=== PATIENT | male | born 1980 | race Caucasian/White ===

== ENCOUNTER 2020-08-19 07:53 | Outpatient (REF) | payer OTHER, SELFPAY ==
[2020-08-19 12:14] LABS: Cholesterol 226 mg/dL; HDL Cholesterol 31 mg/dL; Triglycerides 432 mg/dL
== END 2020-08-19 07:54 | disposition home or self-care (01) ==
LOC: HO.WFDLDS 07:53
PROVIDERS: Visit Provider Family Medicine
DX: E78.00 Pure hypercholesterolemia, unspecified (principal)
CPT/HCPCS: 80061

== ENCOUNTER → 2020-08-24 09:08 | Outpatient (BNVA) | payer OTHER, SELFPAY | PROVIDERS: Visit Provider Internal Medicine | DX: M79.7 Fibromyalgia (principal); Z79.891 Long term (current) use of opiate analgesic | CPT/HCPCS: 80305 ==

== ENCOUNTER 2020-08-27 09:30 | Outpatient (REF) | payer OTHER, SELFPAY ==
[2020-08-27 11:18] LABS: Cholesterol 214 mg/dL; HDL Cholesterol 27 mg/dL; LDL Cholesterol Calculated 114 mg/dl; Triglycerides 366 mg/dL
[2020-08-27 11:18] LABS: Creatinine Urine 186.03 mg/dL; Microalbum/Creatinine Ratio Ur 11.2 ug/mg cr
[2020-08-27 11:39] LABS: PSA,Total (Free>4and<10) 0.19 ng/mL (0.00-4.00)
[2020-08-28 10:27] LABS: LDL Cholesterol Direct 144 mg/dL (<100)
== END 2020-08-27 09:31 | disposition home or self-care (01) ==
LOC: HO.WFDLDS 09:30
PROVIDERS: Visit Provider Family Medicine
DX: E78.2 Mixed hyperlipidemia (principal); I10 Essential (primary) hypertension; Z12.5 Encounter for screening for malignant neoplasm of prostate; Z00.00 Encounter for general adult medical examination without abnormal findings
CPT/HCPCS: 80061; 82043; 83721; 84153

== ENCOUNTER 2021-01-19 09:15 | Outpatient (REF) | payer OTHER, SELFPAY ==
[2021-01-19 17:56] LABS: Cholesterol 281 mg/dL; HDL Cholesterol 29 mg/dL; Triglycerides 432 mg/dL
[2021-01-20 01:52] LABS: LDL Cholesterol Direct 184 mg/dL (<100)
== END 2021-01-19 09:16 | disposition home or self-care (01) ==
LOC: HO.WFDLDS 09:15
PROVIDERS: Visit Provider Family Medicine
DX: Z00.00 Encounter for general adult medical examination without abnormal findings (principal); E78.2 Mixed hyperlipidemia
CPT/HCPCS: 36415; 80061; 83721

== ENCOUNTER → 2021-02-14 14:39 | Outpatient (BNVA) | payer OTHER, SELFPAY | PROVIDERS: PCP Family Medicine; Visit Provider Internal Medicine | DX: F11.99 Opioid use, unspecified with unspecified opioid-induced disorder (principal); M79.7 Fibromyalgia | CPT/HCPCS: 80305 ==

== ENCOUNTER → 2021-02-28 10:17 | Outpatient (BNVA) | payer OTHER, SELFPAY | PROVIDERS: Visit Provider Internal Medicine | DX: Z51.81 Encounter for therapeutic drug level monitoring (principal) | CPT/HCPCS: 80305 ==

== ENCOUNTER → 2021-03-07 09:28 | Outpatient (BNVA) | payer OTHER, SELFPAY | PROVIDERS: PCP Family Medicine; Visit Provider Internal Medicine | DX: F11.99 Opioid use, unspecified with unspecified opioid-induced disorder (principal) | CPT/HCPCS: 80305 ==

== ENCOUNTER → 2021-03-21 08:48 | Outpatient (BNVA) | payer OTHER, SELFPAY | PROVIDERS: Visit Provider Internal Medicine | DX: Z51.81 Encounter for therapeutic drug level monitoring (principal) | CPT/HCPCS: 80305 ==

== ENCOUNTER → 2021-04-04 08:28 | Outpatient (BNVA) | payer OTHER, SELFPAY | PROVIDERS: Visit Provider Internal Medicine | DX: Z51.81 Encounter for therapeutic drug level monitoring (principal); F11.90 Opioid use, unspecified, uncomplicated | CPT/HCPCS: 80305 ==

== ENCOUNTER 2021-04-25 08:47 | Outpatient (REF) | payer OTHER, MEDICAID, SELFPAY ==
[2021-04-25 10:25] LABS: Cholesterol 235 mg/dL; HDL Cholesterol 29 mg/dL; Triglycerides 575 mg/dL
== END 2021-04-25 08:48 | disposition home or self-care (01) ==
LOC: HO.LAB 08:47
PROVIDERS: Absent Provider Hospitalist; PCP Family Medicine; Visit Provider Internal Medicine
DX: E78.2 Mixed hyperlipidemia (principal); F11.99 Opioid use, unspecified with unspecified opioid-induced disorder
CPT/HCPCS: 36415; 80061; 80305

== ENCOUNTER → 2021-05-16 08:48 | Outpatient (BNVA) | payer OTHER, SELFPAY | PROVIDERS: PCP Family Medicine; Visit Provider Internal Medicine | DX: Z51.81 Encounter for therapeutic drug level monitoring (principal); F11.90 Opioid use, unspecified, uncomplicated | CPT/HCPCS: 80305 ==

== ENCOUNTER → 2021-06-06 15:40 | Outpatient (BNVA) | payer OTHER, SELFPAY | PROVIDERS: PCP Family Medicine; Visit Provider Internal Medicine ==

== ENCOUNTER → 2021-07-04 10:45 | Outpatient (BNVA) | payer OTHER, SELFPAY | PROVIDERS: Visit Provider Internal Medicine ==

== ENCOUNTER 2021-07-06 07:58 | Outpatient (REF) | payer OTHER, SELFPAY ==
[2021-07-06 11:03] LABS: Cholesterol 190 mg/dL; HDL Cholesterol 32 mg/dL; LDL Cholesterol Calculated 99 mg/dl; Triglycerides 298 mg/dL
[2021-07-08 03:17] LABS: LDL Cholesterol Direct 130 mg/dL (<100)
== END 2021-07-06 07:59 | disposition home or self-care (01) ==
LOC: HO.WFDLDS 07:58
PROVIDERS: Visit Provider Family Medicine
DX: Z00.00 Encounter for general adult medical examination without abnormal findings (principal); E78.2 Mixed hyperlipidemia
CPT/HCPCS: 36415; 80061; 83721

== ENCOUNTER 2021-07-20 09:58 | Outpatient (REF) | payer OTHER, SELFPAY ==
[2021-07-20 18:28] LABS: Fentanyl, urine Not Detected (Not Detect)
== END 2021-07-20 09:59 | disposition home or self-care (01) ==
LOC: HO.LNP 09:58
PROVIDERS: Visit Provider Internal Medicine
DX: F11.20 Opioid dependence, uncomplicated (principal); Z79.899 Other long term (current) drug therapy
CPT/HCPCS: 80305; 80307

== ENCOUNTER → 2021-08-15 17:03 | Outpatient (BNVA) | payer OTHER, SELFPAY | PROVIDERS: PCP Family Medicine; Visit Provider Internal Medicine | DX: F11.99 Opioid use, unspecified with unspecified opioid-induced disorder (principal); I10 Essential (primary) hypertension; U07.0 Vaping-related disorder; Z87.891 Personal history of nicotine dependence | CPT/HCPCS: 80305 ==

== ENCOUNTER → 2021-09-19 14:05 | Outpatient (BNVA) | payer OTHER, SELFPAY | PROVIDERS: Visit Provider Internal Medicine | DX: F11.20 Opioid dependence, uncomplicated (principal); Z51.81 Encounter for therapeutic drug level monitoring; Z79.899 Other long term (current) drug therapy | CPT/HCPCS: 80305 ==

== ENCOUNTER 2021-09-28 09:10 | Outpatient (REF) | payer OTHER, SELFPAY ==
[2021-09-28 12:15] LABS: Alanine Aminotransferase 33 U/L (0-40); Albumin Level 4.5 g/dL (3.5-5.0); Alkaline Phosphatase 39 U/L (39-117); Anion Gap 12 (12-20); Aspartate Amino Transferase 22 U/L (5-37); Bilirubin Total 0.4 mg/dL (0.0-1.0); Blood Urea Nitrogen 14 mg/dL (9-16); Calcium 9.4 mg/dL (8.4-10.2); Carbon Dioxide 28 mmol/L (22-29); Chloride 106 mmol/L (96-108); Cholesterol 225 mg/dL; Estimated Glomerular Filt Rate > 60; Glucose Fasting 115 mg/dL (60-99); HDL Cholesterol 30 mg/dL; Potassium 4.3 mmol/L (3.3-5.1); Sodium 142 mmol/L (135-145); Total Protein 7.3 g/dL (6.5-8.0); Triglycerides 468 mg/dL
[2021-09-28 12:40] LABS: TSH reflex Free T4 2.83 uIU/mL (0.32-4.0)
[2021-09-28 12:57] LABS: Prostate Specific Antigen Scr 0.24 ng/mL (<0.05-4.0)
== END 2021-09-28 09:11 | disposition home or self-care (01) ==
LOC: HO.WFDLDS 09:10
PROVIDERS: Visit Provider Family Medicine
DX: Z00.00 Encounter for general adult medical examination without abnormal findings (principal); Z12.5 Encounter for screening for malignant neoplasm of prostate
CPT/HCPCS: 36415; 80053; 80061; 84153; 84443

== ENCOUNTER 2021-09-29 08:47 | Outpatient (REF) | payer OTHER, SELFPAY ==
[2021-09-29 09:46] LABS: COVID-19 Test Negative (Negative); IDNOW Serial# 16C4AD1C
== END 2021-09-29 08:48 | disposition home or self-care (01) ==
LOC: HO.LAB 08:47
PROVIDERS: PCP Family Medicine; Visit Provider Internal Medicine
DX: Z20.822 Contact with and (suspected) exposure to COVID-19 (principal)
CPT/HCPCS: 36415; 87635; C9803

== ENCOUNTER 2021-09-30 11:44 | Outpatient (REF) | payer OTHER, SELFPAY ==
--- NOTE | ~2021-09-30 | XR_ITS ---
EXAMINATION: XR KNEE, LEFT CLINICAL INFORMATION: Pain in the left knee COMPARISON: None AP and lateral views of the left knee FINDINGS: Bones and soft tissues are normal. No fracture or joint effusion. Alignment is anatomic. Joint spaces are well maintained. No abnormal soft tissue calcification. XR/XR knee LT 2V IMPRESSION: Normal left knee.
== END 2021-09-30 11:45 | disposition home or self-care (01) ==
LOC: HO.HMGCX 11:44
PROVIDERS: PCP Family Medicine; Visit Provider Family Medicine
DX: M25.562 Pain in left knee (principal)
CPT/HCPCS: 73560

== ENCOUNTER → 2021-10-25 15:37 | Outpatient (BNVA) | payer OTHER, SELFPAY | PROVIDERS: PCP Family Medicine; Visit Provider Internal Medicine ==

== ENCOUNTER 2021-11-17 10:06 | Outpatient (REF) | payer OTHER, SELFPAY ==
[2021-11-17 13:53] LABS: Alanine Aminotransferase 67 U/L (0-40); Albumin Level 4.7 g/dL (3.5-5.0); Alkaline Phosphatase 42 U/L (39-117); Anion Gap 12 (12-20); Aspartate Amino Transferase 40 U/L (5-37); Bilirubin Total 0.4 mg/dL (0.0-1.0); Blood Urea Nitrogen 15 mg/dL (9-16); Calcium 9.6 mg/dL (8.4-10.2); Carbon Dioxide 29 mmol/L (22-29); Chloride 105 mmol/L (96-108); Cholesterol 219 mg/dL; Estimated Glomerular Filt Rate > 60; Glucose Fasting 114 mg/dL (60-99); HDL Cholesterol 33 mg/dL; LDL Cholesterol Calculated 133 mg/dl; Potassium 4.2 mmol/L (3.3-5.1); Sodium 142 mmol/L (135-145); Total Protein 7.5 g/dL (6.5-8.0); Triglycerides 265 mg/dL
[2021-11-17 14:04] LABS: Estimated Average Glucose 126 mg/dL
[2021-11-17 14:13] LABS: TSH reflex Free T4 3.28 uIU/mL (0.32-4.0)
== END 2021-11-17 10:07 | disposition home or self-care (01) ==
LOC: HO.WFDLDS 10:06
PROVIDERS: Visit Provider Family Medicine
DX: Z00.00 Encounter for general adult medical examination without abnormal findings (principal); R73.01 Impaired fasting glucose
CPT/HCPCS: 36415; 80053; 80061; 83036; 84443

== ENCOUNTER → 2021-11-22 15:04 | Outpatient (BNVA) | payer OTHER, SELFPAY | PROVIDERS: PCP Family Medicine; Visit Provider Internal Medicine | DX: F11.20 Opioid dependence, uncomplicated (principal); Z51.81 Encounter for therapeutic drug level monitoring; Z79.899 Other long term (current) drug therapy | CPT/HCPCS: 80305 ==

== ENCOUNTER 2022-01-03 14:17 | Outpatient (REF) | payer OTHER, SELFPAY ==
[2022-01-03 14:46] LABS: Estimated Average Glucose 120 mg/dL; Hemoglobin A1c % 5.8 %
[2022-01-03 15:00] LABS: Alanine Aminotransferase 29 U/L (0-40); Albumin Level 4.9 g/dL (3.5-5.0); Alkaline Phosphatase 42 U/L (39-117); Anion Gap 13 (12-20); Aspartate Amino Transferase 23 U/L (5-37); Bilirubin Total 0.7 mg/dL (0.0-1.0); Blood Urea Nitrogen 11 mg/dL (9-16); Calcium 9.9 mg/dL (8.4-10.2); Carbon Dioxide 27 mmol/L (22-29); Chloride 106 mmol/L (96-108); Cholesterol 184 mg/dL; Estimated Glomerular Filt Rate > 60; Glucose Random 112 mg/dL (60-115); HDL Cholesterol 36 mg/dL; LDL Cholesterol Calculated 117 mg/dl; Potassium 4.4 mmol/L (3.3-5.1); Sodium 142 mmol/L (135-145); Total Protein 7.6 g/dL (6.5-8.0); Triglycerides 159 mg/dL
== END 2022-01-03 14:18 | disposition home or self-care (01) ==
LOC: HO.LAB 14:17
PROVIDERS: PCP Family Medicine; Visit Provider Family Medicine
DX: Z00.00 Encounter for general adult medical examination without abnormal findings (principal); R73.01 Impaired fasting glucose; R74.8 Abnormal levels of other serum enzymes
CPT/HCPCS: 36415; 80053; 80061; 83036

== ENCOUNTER → 2022-01-17 13:53 | Outpatient (BNVA) | payer OTHER, SELFPAY | PROVIDERS: PCP Family Medicine; Visit Provider Internal Medicine | DX: F11.20 Opioid dependence, uncomplicated (principal) | CPT/HCPCS: 80305 ==

== ENCOUNTER → 2022-02-16 09:03 | Outpatient (BNVA) | payer OTHER, SELFPAY | PROVIDERS: PCP Family Medicine; Referring Provider Family Medicine; Visit Provider Internal Medicine | DX: E78.2 Mixed hyperlipidemia (principal) | CPT/HCPCS: 93005 ==

== ENCOUNTER → 2022-03-14 14:16 | Outpatient (BNVA) | payer OTHER, SELFPAY | PROVIDERS: PCP Family Medicine; Visit Provider Internal Medicine | DX: Z51.81 Encounter for therapeutic drug level monitoring (principal); F11.20 Opioid dependence, uncomplicated | CPT/HCPCS: 80305 ==

== ENCOUNTER 2022-10-02 09:49 | Outpatient (REF) | payer OTHER, SELFPAY ==
[2022-10-02 11:32] LABS: MANUAL DIFF FLAG NO
[2022-10-02 11:34] LABS: Basophils Absolute Auto 0.1 X10*3/uL (0.0-0.2); Basophils Percent Auto 0.9 % (0-2); Eosinophils Absolute Auto 0.2 X10*3/uL (0.0-0.4); Eosinophils Percent Auto 3.3 % (0-4); Hematocrit 41.3 % (42.0-52.0); Hemoglobin 13.9 g/dl (14.0-18.0); Imm Gran Abs Auto 0.03 X10*3/uL (0.00-0.03); Imm Gran Pct Auto 0.5 % (0.0-0.4); Lymphocytes Absolute Auto 1.8 X10*3/uL (1.2-4.9); Lymphocytes Percent Auto 27.8 % (20-40); Mean Corpuscular HGB Conc 33.7 g/dl (31.0-36.0); Mean Corpuscular Hemoglobin 29.2 pg (27.0-33.0); Mean Corpuscular Volume 86.8 fL (80.0-98.0); Mean Platelet Volume 9.9 fL (9.4-12.4); Monocytes Absolute Auto 0.5 X10*3/uL (0.1-1.2); Monocytes Percent Auto 7.3 % (2-11); Neutrophils Absolute Auto 3.9 x10*3/uL (2.0-8.3); Neutrophils Percent Auto 60.2 % (45-73); Platelet Count 312 X10*3/uL (160-400); Red Blood Count 4.76 X10*6/uL (4.60-5.80); Red Cell Distribution Width 12.2 % (11.0-16.0); White Blood Count 6.4 X10*3/uL (4.8-10.8)
[2022-10-02 12:25] LABS: Alanine Aminotransferase 26 U/L (0-40); Albumin Level 4.6 g/dL (3.5-5.0); Alkaline Phosphatase 53 U/L (39-117); Anion Gap 13 (12-20); Aspartate Amino Transferase 20 U/L (5-37); Bilirubin Total 0.5 mg/dL (0.0-1.0); Blood Urea Nitrogen 15 mg/dL (9-16); Calcium 9.8 mg/dL (8.4-10.2); Carbon Dioxide 32 mmol/L (22-29); Chloride 103 mmol/L (96-108); Cholesterol 175 mg/dL; Estimated Glomerular Filt Rate > 60; Glucose Random 116 mg/dL (60-115); HDL Cholesterol 32 mg/dL; LDL Cholesterol Calculated 103 mg/dl; Potassium 4.8 mmol/L (3.3-5.1); Prostate Specific Antigen Scr 0.25 ng/mL (<0.05-4.0); Sodium 143 mmol/L (135-145); Total Protein 7.3 g/dL (6.5-8.0); Triglycerides 202 mg/dL
[2022-10-02 12:54] LABS: Microalbum/Creatinine Ratio Ur 15.6 ug/mg cr
== END 2022-10-02 09:50 | disposition home or self-care (01) ==
LOC: HO.WFDLDS 09:49
PROVIDERS: Visit Provider Family Medicine
DX: Z00.00 Encounter for general adult medical examination without abnormal findings (principal); Z12.5 Encounter for screening for malignant neoplasm of prostate; I10 Essential (primary) hypertension; R73.03 Prediabetes; R74.8 Abnormal levels of other serum enzymes
CPT/HCPCS: 36415; 80053; 80061; 82043; 84153; 85025

== ENCOUNTER → 2022-11-07 15:27 | Outpatient (BNVA) | payer OTHER, SELFPAY | PROVIDERS: PCP Family Medicine; Visit Provider Nurse Practitioner Psychiatric/Mental Health | DX: F11.20 Opioid dependence, uncomplicated (principal); Z51.81 Encounter for therapeutic drug level monitoring; Z79.899 Other long term (current) drug therapy | CPT/HCPCS: 80305 ==

== ENCOUNTER 2022-12-20 07:55 | Outpatient (REF) | payer OTHER, SELFPAY ==
[2022-12-20 10:57] LABS: MANUAL DIFF FLAG NO
[2022-12-20 11:12] LABS: Estimated Average Glucose 128 mg/dL; Hemoglobin A1c % 6.1 %
[2022-12-20 11:17] LABS: Basophils Absolute Auto 0.1 X10*3/uL (0.0-0.2); Basophils Percent Auto 0.7 % (0-2); Eosinophils Absolute Auto 0.3 X10*3/uL (0.0-0.4); Eosinophils Percent Auto 2.4 % (0-4); Hematocrit 42.1 % (42.0-52.0); Hemoglobin 14.3 g/dl (14.0-18.0); Imm Gran Abs Auto 0.02 X10*3/uL (0.00-0.03); Imm Gran Pct Auto 0.2 % (0.0-0.4); Lymphocytes Absolute Auto 1.3 X10*3/uL (1.2-4.9); Lymphocytes Percent Auto 12.7 % (20-40); Mean Corpuscular Hemoglobin 29.3 pg (27.0-33.0); Mean Corpuscular Volume 86.3 fL (80.0-98.0); Mean Platelet Volume 10.8 fL (9.4-12.4); Monocytes Absolute Auto 0.7 X10*3/uL (0.1-1.2); Monocytes Percent Auto 6.4 % (2-11); Neutrophils Percent Auto 77.6 % (45-73); Platelet Count 304 X10*3/uL (160-400); Red Blood Count 4.88 X10*6/uL (4.60-5.80); Red Cell Distribution Width 12.1 % (11.0-16.0); White Blood Count 10.3 X10*3/uL (4.8-10.8)
[2022-12-20 11:29] LABS: Cholesterol 177 mg/dL; HDL Cholesterol 33 mg/dL; LDL Cholesterol Calculated 94 mg/dl; Triglycerides 254 mg/dL
[2022-12-20 11:45] LABS: Appearance Urine Clear; Color Urine Yellow; Glucose Urine UA Negative (Negative); Leukocyte Esterase Urine Negative (Negative); Nitrite Urine Negative (Negative); Specific Gravity - Urine 1.025 (1.005-1.025); Urine Blood Negative (Negative); Urine Ketones Negative (Negative); Urine Protein Negative (Neg-Trace)
[2022-12-22 05:04] LABS: LDL Cholesterol Direct 102 mg/dL (<100)
== END 2022-12-20 07:56 | disposition home or self-care (01) ==
LOC: HO.WFDLDS 07:55
PROVIDERS: Visit Provider Family Medicine
DX: Z00.00 Encounter for general adult medical examination without abnormal findings (principal); E78.2 Mixed hyperlipidemia; E78.6 Lipoprotein deficiency; R73.01 Impaired fasting glucose
CPT/HCPCS: 36415; 80061; 81003; 83036; 83721; 84443; 85025

== ENCOUNTER → 2023-01-02 15:22 | Outpatient (BNVA) | payer OTHER, SELFPAY | PROVIDERS: PCP Family Medicine | DX: Z51.81 Encounter for therapeutic drug level monitoring (principal); F11.20 Opioid dependence, uncomplicated | CPT/HCPCS: 80305 ==

== ENCOUNTER → 2023-02-28 15:24 | Outpatient (BNVA) | payer OTHER, SELFPAY | PROVIDERS: PCP Family Medicine; Visit Provider Nurse Practitioner Psychiatric/Mental Health | DX: Z51.81 Encounter for therapeutic drug level monitoring (principal) ==

== ENCOUNTER 2023-03-21 07:34 | Outpatient (REF) | payer OTHER, SELFPAY ==
[2023-03-21 11:47] LABS: Estimated Average Glucose 114 mg/dL; Hemoglobin A1c % 5.6 %
[2023-03-21 12:10] LABS: TSH reflex Free T4 3.51 uIU/mL (0.32-4.0)
== END 2023-03-21 07:35 | disposition home or self-care (01) ==
LOC: HO.WFDLDS 07:34
PROVIDERS: Visit Provider Family Medicine
DX: Z00.00 Encounter for general adult medical examination without abnormal findings (principal); R73.01 Impaired fasting glucose; R73.03 Prediabetes
CPT/HCPCS: 36415; 83036; 84443

== ENCOUNTER → 2023-04-18 15:35 | Outpatient (BNVA) | payer OTHER, SELFPAY | PROVIDERS: PCP Family Medicine; Visit Provider Nurse Practitioner Psychiatric/Mental Health | DX: F11.20 Opioid dependence, uncomplicated (principal) | CPT/HCPCS: 80305 ==

== ENCOUNTER 2023-05-09 07:52 | Outpatient (REF) | payer OTHER, SELFPAY ==
[2023-05-09 11:48] LABS: Alanine Aminotransferase 28 U/L (0-40); Albumin Level 4.5 g/dL (3.5-5.0); Alkaline Phosphatase 58 U/L (39-117); Anion Gap 11 (12-20); Aspartate Amino Transferase 22 U/L (5-37); Bilirubin Total 0.5 mg/dL (0.0-1.0); Blood Urea Nitrogen 12 mg/dL (9-16); Calcium 9.5 mg/dL (8.4-10.2); Carbon Dioxide 30 mmol/L (22-29); Chloride 104 mmol/L (96-108); Cholesterol 165 mg/dL; Estimated Glomerular Filt Rate > 60; Glucose Fasting 116 mg/dL (60-99); HDL Cholesterol 33 mg/dL; LDL Cholesterol Calculated 69 mg/dl; Potassium 4.2 mmol/L (3.3-5.1); Sodium 141 mmol/L (135-145); Total Protein 7.6 g/dL (6.5-8.0); Triglycerides 316 mg/dL
[2023-05-09 11:51] LABS: Prostate Specific Antigen Scr 0.37 ng/mL (<0.05-4.0)
[2023-05-09 11:55] LABS: Appearance Urine Clear; Color Urine Yellow; Glucose Urine UA Negative (Negative); Leukocyte Esterase Urine Negative (Negative); Nitrite Urine Negative (Negative); PH 6.5 (5.0-9.0); Specific Gravity - Urine 1.015 (1.005-1.025); Urine Blood Negative (Negative); Urine Ketones Trace mg/dL (Negative); Urine Protein Negative (Neg-Trace)
[2023-05-09 12:27] LABS: Creatinine Urine 337.83 mg/dL; Microalbum/Creatinine Ratio Ur 4.1 ug/mg cr
== END 2023-05-09 07:53 | disposition home or self-care (01) ==
LOC: HO.WFDLDS 07:52
PROVIDERS: Visit Provider Family Medicine
DX: Z00.00 Encounter for general adult medical examination without abnormal findings (principal); I10 Essential (primary) hypertension; Z12.5 Encounter for screening for malignant neoplasm of prostate
CPT/HCPCS: 36415; 80053; 80061; 81003; 82043; 84153; 84443

== ENCOUNTER 2023-05-14 15:14 | Outpatient (AMB) | payer OTHER, SELFPAY ==
--- NOTE | 2023-05-14 15:20 | A.OFFPC_ITS ---
Vital Signs 05/14/23 15:22 Height 5 ft 9 in Weight 198 lb BMI 29.2 BP 118/66 Blood Pressure Location Lt brachial Position Sitting Pulse 70 Pulse Source Pulse Oximeter Pulse Oximetry (%) 97 Oxygen Delivery Method Room Air Intake Visit Reasons: f/u mixed hyperlipidemia Intake Note: pt is here for f/u mixed hyperlipidemia Strategic Manager Required: No Accompanied by: Self / Same As Patient Allergies No Known Allergies Allergy (Verified 05/14/23 15:21) Tobacco use date assessed: 12/25/22 Dental Screening Dental Screen Date: 05/14/23 Did you have a dental visit in the last 12 months?: Yes Did you have a dental problem in the last 6 months where you did not have access to dental care?: No Was dental information given to patient?: Patient has dentist HPI f/u mixed hyperlipidemia HPI Details 42 y/o male presents to /u hyperlipidemia. Labs were drawn 05/09/23. Reviewed labs with pt. Elevated fasting glucose of 116. Triglycerides 316. TC 165. LDL 69. HDL low at 33. He reports he does get a lot of exercise. Blood pressure today is 118/66. He is on metoprolol 100mg daily. [facility] Medical History Hypertension Surgical History History of surgery on arm Family History Mother HTN (hypertension) Father Liver cancer Stroke Prostate cancer Sister No problems noted. Other Substance use disorder Social History Housing: House Alcohol intake: current Alcohol intake frequency: a few times a month Patient Tobacco Use Status: Former Tobacco user e-Cigarette/Vaping Use: Currently Using Second Hand Smoke Exposure: No service: No Current occupational status: employed Current occupational exposures/hazards: No Cognitive needs: No Hearing needs: No Vision needs: No Questionnaire PHQ-9 Over the last 2 weeks, how often have you been bothered by any of the following problems? 21160 - PHQ-9 Billing: Patient declined-do not bill Source: Developed by Drs. Parth Gomez, Juliet B.W. Juan Nguyen and colleagues, with an educational aj from [employer]. Thrive Questionnaire Date Thrive assessed: 05/14/23 I am a: Patient What is your living situation today?: I have a steady place to live Within the past 12 months, did the food you bought not last and you didn't have the money to get more?: Never true Within the past 12 months, did you worry whether your food would run out before you got money to buy more?: Never true Do you have trouble paying for medicines?: No Do you have trouble getting transportation to medical appointments?: No Do you have trouble paying your heating and electricity bill?: No Do you have trouble taking care of your child, family member or friend?: No Do you have trouble with day-to-day activities such as bathing, preparing meals, shopping, managing finances, etc.?: No Are you currently unemployed and looking for a job?: No Are you interested in more education?: No Please select the resources that you would like help with: None Currently or been in a relationship where the following occur: no concerns reported KELLY-7 AMB Questionnaire KELLY-7 Date KELLY - 7 assessed: 05/14/23 Source: Developed by Drs. Parth Gomez, Juan Daugherty and colleagues, with an educational aj from [employer]. KELLY-7 Assessment Billing KELLY-7 Assessment Tool: pt declined-do not bill Physical exam (Primary Care) Vital Signs: Last Vital Signs Pulse 70 05/14/23 15:22 BP 118/66 05/14/23 15:22 Pulse Ox 97 05/14/23 15:22 Oxygen Delivery Method Room Air 05/14/23 15:22 BMI result Body Mass Index 29.2 Tobacco/Smoking Status: Tobacco use Status Tobacco use date assessed 12/25/22 05/14/23 15:21 Patient Tobacco Use Status Former Tobacco user 05/14/23 15:21 e-Cigarette/Vaping Use Currently Using 05/14/23 15:21 Thrive Assessment: Date of Thrive Assessment Date Thrive assessed 05/14/23 05/14/23 15:24 Currently or been in a relationship where the following occur: no concerns reported Assessment and Plan Assessment & Plan (1) Mixed hyperlipidemia: Code(s): E78.2 - Mixed hyperlipidemia Plan: HDL is still low and his triglycerides are still high. He did not tolerate fenofibrate Will try rosuvastatin which may help bring his HDL up a bit and may also help control his triglycerides (2) Essential hypertension: Code(s): I10 - Essential (primary) hypertension Plan: Blood pressure is controlled. Continue current medication regimen (3) Low HDL (under 40): Code(s): E78.6 - Lipoprotein deficiency Plan: As above, will switch him from atorvastatin to rosuvastatin and I encouraged exercise (4) Elevated fasting blood sugar: Code(s): R73.01 - Impaired fasting glucose Plan: Following his blood sugars. Will recheck A1c prior to his next visit Encouraged diet low in sugars and starches (5) Weight loss: Code(s): R63.4 - Abnormal weight loss Plan: Patient had been concerned about his weight loss which he said was not intentional but this has leveled out. Had referred him to gastroenterology but he is declining this for now. Medications: New rosuvastatin 40 mg PO DAILY 90 days 90 tabs 2RF Refilled alprazolam 2 mg (2 x 1 mg) PO DAILY 60 tabs 0RF Discontinued atorvastatin Discontinued Reason: Doctor's Order 80 mg PO DAILY 90 days 90 tabs 3RF Coding Level of Care Code Est Pt Level 4 (42353) Diagnoses Mixed hyperlipidemia E78.2 Essential hypertension I10 Low HDL (under 40) E78.6 Elevated fasting blood sugar R73.01 Weight loss R63.4
[2023-05-14 15:22] VITALS: BP 118/66; PULSE 70; O2SAT 97; BMI 29.2
== END 2023-05-14 16:28 | disposition home or self-care (01) ==
PROVIDERS: PCP Family Medicine; Visit Provider Family Medicine
DX: E78.2 Mixed hyperlipidemia (principal); I10 Essential (primary) hypertension; E78.6 Lipoprotein deficiency; R73.01 Impaired fasting glucose; R63.4 Abnormal weight loss
CPT/HCPCS: 99214

== ENCOUNTER 2023-07-30 15:04 | Outpatient (AMB) | payer OTHER, SELFPAY ==
--- NOTE | 2023-07-30 15:05 | A.OFFVIS_ITS ---
Intake Vital Signs 07/30/23 15:21 BP 110/72 Blood Pressure Location Lt radial Position Sitting Pulse 64 Pulse Source Pulse Oximeter Pulse Oximetry (%) 96 Oxygen Delivery Method Room Air Intake Visit Reasons: MAT Visit Intake Note: the patient presents for a mat visit Jacket Preparer Required: No Allergies No Known Allergies Allergy (Verified 07/30/23 15:22) Do you need a note to return to daycare/school/sports/work: No HPI MAT Visit HPI Details Patient presents for follow up Currently prescribed Suboxone 16mg daily Tolerating current dose Experiencing some back pain PFSH Medical History Hypertension Surgical History History of surgery on arm Family History Mother HTN (hypertension) Father Liver cancer Stroke Prostate cancer Sister No problems noted. Other Substance use disorder Social History Housing: House Alcohol intake: current Alcohol intake frequency: a few times a month Patient Tobacco Use Status: Former Tobacco user e-Cigarette/Vaping Use: Currently Using Second Hand Smoke Exposure: No service: No Current occupational status: employed Current occupational exposures/hazards: No Cognitive needs: No Hearing needs: No Vision needs: No Review of Systems Const Reports as per HPI and Reports no additional complaints Physical Exam Vital Signs: Last Vital Signs Pulse 64 07/30/23 15:21 BP 110/72 07/30/23 15:21 Pulse Ox 96 07/30/23 15:21 Oxygen Delivery Method Room Air 07/30/23 15:21 Const Other: NAD General: cooperative, healthy appearing, comfortable, no acute distress, well developed and alert Nutritional Appearance: well nourished Orientation/consciousness: patient oriented x3 Limitations: no limitations Neuro General: patient oriented x3 Psych Other: reports some anxiety at times, well managed with xanax. no concerns. Appearance: well kempt Mental Status: mental status grossly normal Speech and movement: Normal speech and movement present Affect: normal affect Attitude: cooperative Thought process: Normal thought process present Thought content: Normal thought content present Insight: Good insight present (Psych) Judgement: Good judgement present (Psych) Assessment & Plan Assessment & Plan (1) Opioid use disorder, severe, in sustained remission: Code(s): F11.21 - Opioid dependence, in remission Plan: * continue suboxone at current dose * follow up 3 months * encouraged to call office before next appt if needed Medications: Refilled buprenorphine-naloxone 8-2 mg 2 tabs sublingual DAILY 30 days 60 tabs 2RF Coding Level of Care Code Est Pt Level 3 (37003) Diagnoses Opioid use disorder, severe, in sustained remission F11.21
[2023-07-30 15:21] VITALS: BP 110/72; PULSE 64; O2SAT 96
== END 2023-07-30 16:30 | disposition home or self-care (01) ==
PROVIDERS: PCP Family Medicine; Visit Provider Nurse Practitioner Psychiatric/Mental Health
DX: F11.21 Opioid dependence, in remission (principal)
CPT/HCPCS: 99213

== ENCOUNTER → 2023-07-30 15:04 | Outpatient (BNVA) | payer OTHER, SELFPAY | PROVIDERS: PCP Family Medicine; Visit Provider Nurse Practitioner Psychiatric/Mental Health | DX: Z51.81 Encounter for therapeutic drug level monitoring (principal); F11.99 Opioid use, unspecified with unspecified opioid-induced disorder ==

== ENCOUNTER 2023-08-09 07:34 | Outpatient (REF) | payer OTHER, SELFPAY ==
[2023-08-09 11:58] LABS: Estimated Average Glucose 117 mg/dL; Hemoglobin A1c % 5.7 % (<6.0)
[2023-08-09 12:05] LABS: Alanine Aminotransferase 47 U/L (0-40); Albumin Level 4.5 g/dL (3.5-5.0); Alkaline Phosphatase 49 U/L (39-117); Anion Gap 10 (12-20); Aspartate Amino Transferase 39 U/L (5-37); Bilirubin Total 0.3 mg/dL (0.0-1.0); Blood Urea Nitrogen 13 mg/dL (9-16); Calcium 9.7 mg/dL (8.4-10.2); Carbon Dioxide 32 mmol/L (22-29); Chloride 107 mmol/L (96-108); Cholesterol 169 mg/dL (<200); Estimated Glomerular Filt Rate > 60; Glucose Fasting 101 mg/dL (60-99); HDL Cholesterol 38 mg/dL (>40); LDL Cholesterol Calculated 89 mg/dL (<100); Potassium 4.4 mmol/L (3.3-5.1); Sodium 145 mmol/L (135-145); Total Protein 7.3 g/dL (6.5-8.0); Triglycerides 212 mg/dL (<150)
== END 2023-08-09 07:35 | disposition home or self-care (01) ==
LOC: HO.WFDLDS 07:34
PROVIDERS: Visit Provider Family Medicine
DX: Z00.00 Encounter for general adult medical examination without abnormal findings (principal); R73.03 Prediabetes; E78.6 Lipoprotein deficiency
CPT/HCPCS: 36415; 80053; 80061; 83036

== ENCOUNTER 2023-08-15 15:07 | Outpatient (AMB) | payer OTHER, SELFPAY ==
--- NOTE | 2023-08-15 15:21 | MHC.PC.OV ---
Vital Signs 08/15/23 15:22 Height 5 ft 9 in Weight 200 lb BMI 29.5 BP 120/72 Blood Pressure Location Lt brachial Position Sitting Pulse 67 Pulse Source Pulse Oximeter Pulse Oximetry (%) 99 Oxygen Delivery Method Room Air Intake Visit Reasons: f/u hyperlipidemia Intake Note: Patient is here to follow up on his cholesterol today. Patient needs refill on Alprazolam. Patient would like a flu shot today. Allergies No Known Allergies Allergy (Verified 08/15/23 15:23) Tobacco use date assessed: 08/15/23 HPI f/u hyperlipidemia HPI Details 43 y/o male presents to f/u HLD. Had switched artovastatin to rosuvastatin. Labs were drawn 08/09/23. Reviewed labs with pt. A1c 5.7% - pre-diabetes range. Triglycerides 212. TC 169. LDL 89. HDL low at 38. Pt is requesting a flu shot today. [facility] Medical History Hypertension Surgical History History of surgery on arm Family History Mother HTN (hypertension) Father Liver cancer Stroke Prostate cancer Sister No problems noted. Other Substance use disorder Social History Housing: House Alcohol intake: current Alcohol intake frequency: a few times a month Patient Tobacco Use Status: Former Tobacco user e-Cigarette/Vaping Use: Currently Using Second Hand Smoke Exposure: No service: No Current occupational status: employed Current occupational exposures/hazards: No Cognitive needs: No Hearing needs: No Vision needs: No Questionnaire Thrive Questionnaire Date Thrive assessed: 05/14/23 KELLY-7 AMB Questionnaire KELLY-7 Date KELLY - 7 assessed: 05/14/23 Source: Developed by Drs. Parth Gomez, Juliet Nguyen, Juan Gonzalez and colleagues, with an educational aj from [employer]. Review of Systems Const Denies chills, Denies fatigue, Denies fever(s), Denies headache(s) and Denies weakness ENT Denies dizziness and Denies headache(s) Card Denies dyspnea Resp Denies cough, Denies dyspnea, Denies wheezing and Denies other (shortness of breath) Musc Denies numbness and Denies tingling Neuro Denies dizziness, Denies headache(s), Denies numbness, Denies tingling and Denies weakness Psych Denies anxiety and Denies depression Endo Denies fatigue Aller/Immun Denies wheezing Physical exam (Primary Care) Vital Signs: Last Vital Signs Pulse 67 08/15/23 15:22 BP 120/72 08/15/23 15:22 Pulse Ox 99 08/15/23 15:22 Oxygen Delivery Method Room Air 08/15/23 15:22 BMI result Body Mass Index 29.5 Tobacco/Smoking Status: Tobacco use Status Tobacco use date assessed 08/15/23 08/15/23 15:24 Patient Tobacco Use Status Former Tobacco user 08/15/23 15:24 e-Cigarette/Vaping Use Currently Using 08/15/23 15:24 Thrive Assessment: Date of Thrive Assessment Date Thrive assessed 05/14/23 08/15/23 15:24 Const General: well developed; No acute distress Nutritional Appearance: well nourished Orientation/consciousness: patient oriented x3 [facility] Head: Yes normocephalic and Yes atraumatic Eyes General: appearance normal, both eyes and all related structures Pupils: Equal, round and reactive pupils present EOM: EOMs intact bilaterally Resp Effort & Inspection: normal respiratory effort Neuro General: patient oriented x3 and gait normal Cranial nerves: Yes Equal, round and reactive pupils present Psych Affect: normal affect Assessment and Plan Assessment & Plan (1) Pre-diabetes: Code(s): R73.03 - Prediabetes Plan: A1c?stable. Continue?to?work?at?diet?low?in?sugars?and?starches (2) Mixed hyperlipidemia: Code(s): E78.2 - Mixed hyperlipidemia Plan: Improved?on?rosuvastatin.??However,?patient?is?noticing?some?muscular?back?pain. He?will?trial?discontinuing?medication?for?few?days?and?resume?it?if?no?change?or?can?resume?it?if?back?pain?resolves?to?see?if?it?returns. If?back?pain?returns?with?resumption?of?medication,?he?will?switch?back?to?atorvastatin?in?let?me?know. (3) Low HDL (under 40): Code(s): E78.6 - Lipoprotein deficiency Plan: Continue?rosuvastatin?if?this?is?not?the?cause?of?his?muscular?pain-see?above Continue?exercise (4) Immunization counseling: Code(s): Z71.85 - Encounter for immunization safety counseling Plan: Patient?received?flu?shot?today Orders: Orders Comprehensive [place]. Panel Fast Today Z00.00 - Encounter for general adult medical examination without abnormal findings TSH reflex Free T4 Today Z00.00 - Encounter for general adult medical examination without abnormal findings Lipid Panel Today Z00.00 - Encounter for general adult medical examination without abnormal findings Microalbumin, Random (w Creat) Today I10 - Essential (primary) hypertension Prostate Specific Antigen Scr Today Z12.5 - Encounter for screening for malignant neoplasm of prostate UA and rflx microscopic Today Z00.00 - Encounter for general adult medical examination without abnormal findings Coding Level of Care Code Est Pt Level 4 (07568) Diagnoses Pre-diabetes R73.03 Mixed hyperlipidemia E78.2 Low HDL (under 40) E78.6 Immunization counseling Z71.85
[2023-08-15 15:22] VITALS: BP 120/72; PULSE 67; O2SAT 99; BMI 29.5
== END 2023-08-15 16:53 | disposition home or self-care (01) ==
PROVIDERS: PCP Family Medicine; Visit Provider Family Medicine
DX: Z23 Encounter for immunization (principal)
CPT/HCPCS: 90471; 90686; 99214

== ENCOUNTER 2023-10-22 15:19 | Outpatient (AMB) | payer OTHER, SELFPAY ==
--- NOTE | 2023-10-22 15:28 | A.OFFVISCC_ITS ---
Intake Vital Signs 10/22/23 15:40 BP 118/70 Blood Pressure Location Lt radial Position Sitting Pulse 80 Pulse Source Pulse Oximeter Pulse Oximetry (%) 94 Oxygen Delivery Method Room Air Intake Visit Reasons: MAT Visit Intake Note: the patient presents for a mat visit Emergency Management Director Required: No Allergies No Known Allergies Allergy (Verified 10/22/23 15:28) Do you need a note to return to daycare/school/sports/work: No HPI MAT Visit HPI Details Patient presents for follow up Currently prescribed Suboxone 16mg QD Continues to do well with recovery will be traveling to [place] with his daughter in January No concerns at this time [facility] Medical History (Reviewed 08/15/23 @ : by Pauline Falcon CMA) Hypertension Surgical History (Reviewed 08/15/23 @ : by Pauline Falcon CMA) History of surgery on arm Family History (Reviewed 08/15/23 @ :24 by Pauline Falcon CMA) Mother HTN (hypertension) Father Liver cancer Stroke Prostate cancer Sister No problems noted. Other Substance use disorder Social History Housing: House Alcohol intake: current Alcohol intake frequency: a few times a month Patient Tobacco Use Status: Former Tobacco user e-Cigarette/Vaping Use: Currently Using Second Hand Smoke Exposure: No service: No Current occupational status: employed Current occupational exposures/hazards: No Cognitive needs: No Hearing needs: No Vision needs: No Review of Systems Const Reports as per HPI and Reports no additional complaints Physical Exam Vital Signs: Last Vital Signs Pulse 80 10/22/23 15:40 BP 118/70 10/22/23 15:40 Pulse Ox 94 10/22/23 15:40 Oxygen Delivery Method Room Air 10/22/23 15:40 Const Other: NAD General: cooperative, healthy appearing, comfortable, no acute distress, well developed and alert Nutritional Appearance: well nourished Orientation/consciousness: patient oriented x3 Limitations: no limitations Neuro General: patient oriented x3 Psych Other: reports some anxiety at times, well managed with xanax. no concerns. Appearance: well kempt Mental Status: mental status grossly normal Speech and movement: Normal speech and movement present Affect: normal affect Attitude: cooperative Thought process: Normal thought process present Thought content: Normal thought content present Insight: Good insight present (Psych) Judgement: Good judgement present (Psych) Assessment & Plan Assessment & Plan (1) Opioid use disorder, severe, in sustained remission: Code(s): F11.21 - Opioid dependence, in remission Plan: * continue suboxone at current dose * follow up 3 months * encouraged to call office before next appt if needed Coding Level of Care Code Est Pt Level 3 (21506) Diagnoses Opioid use disorder, severe, in sustained remission F11.21
[2023-10-22 15:40] VITALS: BP 118/70; PULSE 80; O2SAT 94
== END 2023-10-22 16:14 | disposition home or self-care (01) ==
PROVIDERS: PCP Family Medicine; Visit Provider Nurse Practitioner Psychiatric/Mental Health
DX: F11.21 Opioid dependence, in remission (principal)
CPT/HCPCS: 99213

== ENCOUNTER → 2023-10-22 15:19 | Outpatient (BNVA) | payer OTHER, SELFPAY | PROVIDERS: PCP Family Medicine; Visit Provider Nurse Practitioner Psychiatric/Mental Health | DX: Z51.81 Encounter for therapeutic drug level monitoring (principal); F11.99 Opioid use, unspecified with unspecified opioid-induced disorder; F11.21 Opioid dependence, in remission ==

== ENCOUNTER 2023-12-10 08:40 | Outpatient (REF) | payer OTHER, SELFPAY ==
[2023-12-10 11:31] LABS: Appearance Urine Clear; Color Urine Yellow; Glucose Urine UA Negative (Negative); Leukocyte Esterase Urine Negative (Negative); Nitrite Urine Negative (Negative); PH 5.5 (5.0-9.0); Specific Gravity - Urine 1.025 (1.005-1.025); Urine Blood Negative (Negative); Urine Ketones Negative (Negative); Urine Protein Negative (Neg-Trace)
[2023-12-10 12:28] LABS: Alanine Aminotransferase 28 U/L (0-40); Albumin Level 4.3 g/dL (3.5-5.0); Alkaline Phosphatase 44 U/L (39-117); Anion Gap 10 (12-20); Aspartate Amino Transferase 30 U/L (5-37); Bilirubin Total 0.3 mg/dL (0.0-1.0); Blood Urea Nitrogen 15 mg/dL (9-16); Calcium 9.3 mg/dL (8.4-10.2); Carbon Dioxide 29 mmol/L (22-29); Chloride 106 mmol/L (96-108); Cholesterol 166 mg/dL (<200); Estimated Glomerular Filt Rate > 60; Glucose Fasting 122 mg/dL (60-99); HDL Cholesterol 37 mg/dL (>40); Potassium 4.2 mmol/L (3.3-5.1); Sodium 141 mmol/L (135-145); Total Protein 7.3 g/dL (6.5-8.0); Triglycerides 486 mg/dL (<150)
[2023-12-10 12:35] LABS: TSH reflex Free T4 3.09 uIU/mL (0.32-4.0)
[2023-12-10 12:36] LABS: Prostate Specific Antigen Scr 0.46 ng/mL (<0.05-4.0)
[2023-12-10 13:04] LABS: Creatinine Urine 219.24 mg/dL; Microalbum/Creatinine Ratio Ur 7.2 ug/mg cr (<30)
== END 2023-12-10 08:41 | disposition home or self-care (01) ==
LOC: HO.WFDLDS 08:40
PROVIDERS: Visit Provider Family Medicine
DX: Z00.00 Encounter for general adult medical examination without abnormal findings (principal); Z12.5 Encounter for screening for malignant neoplasm of prostate; I10 Essential (primary) hypertension
CPT/HCPCS: 36415; 80053; 80061; 81003; 82043; 82570; 84153; 84443

== ENCOUNTER 2023-12-20 08:17 | Outpatient (AMB) | payer OTHER, SELFPAY ==
--- NOTE | 2023-12-20 08:19 | MHC.PC.OV ---
Vital Signs 12/20/23 08:20 Height 5 ft 9 in Weight 211 lb 2 oz BMI 31.2 BP 120/70 Blood Pressure Location Lt brachial Position Sitting Pulse 67 Pulse Source Pulse Oximeter Pulse Oximetry (%) 98 Oxygen Delivery Method Room Air Intake Visit Reasons: follow up anxiety Intake Note: Patient is here to follow up on anxiety today. Allergies No Known Allergies Allergy (Verified 12/20/23 08:22) Tobacco use date assessed: 08/15/23 Dental Screening Dental Screen Date: 12/20/23 Did you have a dental visit in the last 12 months?: No Did you have a dental problem in the last 6 months where you did not have access to dental care?: No Was dental information given to patient?: Patient has dentist HPI follow up anxiety HPI Details 43 y/o male presents to f/u anxiety. Labs were drawn 12/10/23. Reviewed labs with pt. Elevated fasting glucose of 122. Triglycerides worsened from 212 to 486. TC 166. LDL TNP. HDL low at 37. Pt notes he has stopped taking fenofibrate as he had been getting constipated but had restarted this. Pt reports sinus issues x3 months. [facility] Medical History Hypertension Surgical History History of surgery on arm Family History Mother HTN (hypertension) Father Liver cancer Stroke Prostate cancer Sister No problems noted. Other Substance use disorder Social History Housing: House Alcohol intake: current Alcohol intake frequency: a few times a month Patient Tobacco Use Status: Former Tobacco user e-Cigarette/Vaping Use: Currently Using Second Hand Smoke Exposure: No service: No Current occupational status: employed Current occupational exposures/hazards: No Cognitive needs: No Hearing needs: No Vision needs: No Questionnaire PHQ-9 Over the last 2 weeks, how often have you been bothered by any of the following problems? 1. Little interest or pleasure in doing things: several days 2. Feeling down, depressed, or hopeless: not at all 3. Trouble falling or staying asleep, or sleeping too much: not at all 4. Feeling tired or having little energy: not at all 5. Poor appetite or overeating: not at all 6. Feeling bad about yourself - or that you are a failure or have let yourself or your family down: not at all 7. Trouble concentrating on things, such as reading the newspaper or watching television: not at all 8. Moving or speaking so slowly that other people could have noticed. Or the opposite - being so fidgety or restless that you have been moving around a lot more than usual: not at all 9. Thoughts that you would be better off or of hurting yourself in some way: not at all Total score: 1 Depression Screening Interpretation: Negative Depression Screening Done: Yes 87971 - PHQ-9 Billing: Yes Source: Developed by Drs. Parth Gomez, Juliet Nguyen, Juan Gonzalez and colleagues, with an educational aj from [employer]. Thrive Questionnaire Date Thrive assessed: 05/14/23 KELLY-7 AMB Questionnaire KELLY-7 Date KELLY - 7 assessed: 12/20/23 Feeling nervous, anxious, or on edge: 3 = Nearly every day Not being able to stop or control worryin = Nearly every day Worrying too much about different things: 1 = Several days Trouble relaxin = Not at all Being so restless that it is hard to sit still: 0 = Not at all Becoming easily annoyed or irritable: 3 = Nearly every day Feeling afraid as if something awful might happen: 0 = Not at all Total KELLY-7 score (0-4 normal; 5-9 mild; 10-14 moderate; 15-21 severe): 10 Source: Developed by Drs. Parth Gomez, Juliet Nguyen, Juan Gonzalez and colleagues, with an educational aj from [employer]. KELLY-7 Assessment Billing KELLY-7 Assessment Tool: KELLY-7 Assessment 37229 Review of Systems Const Denies chills, Denies fatigue, Denies fever(s), Denies headache(s) and Denies weakness ENT Denies dizziness and Denies headache(s) Card Denies dyspnea Resp Denies cough, Denies dyspnea, Denies wheezing and Denies other (shortness of breath) Musc Denies numbness and Denies tingling Neuro Denies dizziness, Denies headache(s), Denies numbness, Denies tingling and Denies weakness Psych Denies anxiety and Denies depression Endo Denies fatigue Aller/Immun Denies wheezing Physical exam (Primary Care) Vital Signs: Last Vital Signs Pulse 67 12/20/23 08:20 BP 120/70 12/20/23 08:20 Pulse Ox 98 12/20/23 08:20 Oxygen Delivery Method Room Air 12/20/23 08:20 BMI result Body Mass Index 31.2 Tobacco/Smoking Status: Tobacco use Status Tobacco use date assessed 08/15/23 12/20/23 08:29 Patient Tobacco Use Status Former Tobacco user 12/20/23 08:29 e-Cigarette/Vaping Use Currently Using 12/20/23 08:29 PHQ-9: PHQ-9 Score PHQ-9: Total score 1 12/20/23 08:40 Depression Screening Interpretation: Negative Thrive Assessment: Date of Thrive Assessment Date Thrive assessed 05/14/23 12/20/23 08:29 Const General: well developed; No acute distress Nutritional Appearance: well nourished Orientation/consciousness: patient oriented x3 HENMT Head: Yes normocephalic and Yes atraumatic Eyes General: appearance normal, both eyes and all related structures Pupils: Equal, round and reactive pupils present EOM: EOMs intact bilaterally Resp Effort & Inspection: normal respiratory effort Auscultation: clear to auscultation bilaterally Cardio Rate: regular rate Rhythm: regular rhythm Heart sounds: S1 normal heart sound present, S2 normal heart sound present, no gallops, no murmurs and no rubs Neuro General: patient oriented x3 and gait normal Cranial nerves: Yes Equal, round and reactive pupils present Psych Affect: normal affect Assessment and Plan Assessment & Plan (1) Anxiety: Code(s): F41.9 - Anxiety disorder, unspecified Plan: Increased?anxiety?as?he?has?been?out?of?alprazolam. Will?resume?this (2) Mixed hyperlipidemia: Code(s): E78.2 - Mixed hyperlipidemia Plan: Triglycerides?are?too?high?again?and?he?has?been?off?fenofibrate?as?it?is?causing?constipation. He?is?only?drinking?about?16?oz?of?water?per?day?and?I?encouraged?him?to?increase?this. Will?also?give?him?a?script?for?fenofibrate He?can?try?taking?holidays?from?the?fenofibrate?if?it?is?causing?severe?constipation. (3) Elevated fasting blood sugar: Code(s): R73.01 - Impaired fasting glucose Plan: Patient?has?pre?diabetes?and?we?will?follow-up?at?his?next?visit (4) Constipation: Code(s): K59.00 - Constipation, unspecified Plan: As?above,?increase?hydration?and?try?FiberCon Medications: New fluticasone propionate 50 mcg/actuation (Flonase Allergy Relief) administer into each nostril 1 spray intranasal Q12H 30 days 16 grams 2RF calcium polycarbophil (FiberCon) 625 mg PO DAILY 30 days 30 tabs 2RF Refilled alprazolam 2 mg (2 x 1 mg) PO DAILY 14 tabs 0RF fenofibrate 54 mg PO DAILY 30 days 30 tabs 3RF Coding Level of Care Code Est Pt Level 4 (69750) Diagnoses Anxiety F41.9 Mixed hyperlipidemia E78.2 Elevated fasting blood sugar R73.01 Constipation K59.00 Additional Codes KELLY-7 Assessment Billing - KELLY-7 Assessment Tool: KELLY-7 Assessment 08839 ([id number])
[2023-12-20 08:20] VITALS: BP 120/70; PULSE 67; O2SAT 98; BMI 31.2
== END 2023-12-20 08:58 | disposition home or self-care (01) ==
PROVIDERS: PCP Family Medicine; Visit Provider Family Medicine
DX: F41.9 Anxiety disorder, unspecified (principal); E78.2 Mixed hyperlipidemia; R73.01 Impaired fasting glucose; K59.00 Constipation, unspecified
CPT/HCPCS: 99214

== ENCOUNTER 2024-01-14 15:11 | Outpatient (AMB) | payer OTHER, SELFPAY ==
--- NOTE | 2024-01-14 15:17 | A.OFFVISCC_ITS ---
Intake Vital Signs 01/14/24 15:21 BP 102/76 Blood Pressure Location Lt radial Position Sitting Pulse 74 Pulse Source Pulse Oximeter Pulse Oximetry (%) 95 Oxygen Delivery Method Room Air Intake Visit Reasons: MAT Visit Intake Note: the patient presents for a mat visit Stitchdown Toe Former Required: No Allergies No Known Allergies Allergy (Verified 01/14/24 15:22) Do you need a note to return to daycare/school/sports/work: No HPI MAT Visit HPI Details Patient presents for follow up Currently prescribed Suboxone 16mg daily Denies any issues related to recovery will be going to [place] for the 1st time with his daughter in a couple of weeks Reviewed labwork, patient already aware that cholesterol was up--reviewed with provider restarted medications recently ON LICENSE OF [facility] Medical History Hypertension Surgical History History of surgery on arm Family History Mother HTN (hypertension) Father Liver cancer Stroke Prostate cancer Sister No problems noted. Other Substance use disorder Social History Housing: House Alcohol intake: current Alcohol intake frequency: a few times a month Patient Tobacco Use Status: Former Tobacco user e-Cigarette/Vaping Use: Currently Using Second Hand Smoke Exposure: No service: No Current occupational status: employed Current occupational exposures/hazards: No Cognitive needs: No Hearing needs: No Vision needs: No Review of Systems Const Reports as per HPI and Reports no additional complaints Physical Exam Vital Signs: Last Vital Signs Pulse 74 01/14/24 15:21 BP 102/76 01/14/24 15:21 Pulse Ox 95 01/14/24 15:21 Oxygen Delivery Method Room Air 01/14/24 15:21 Const Other: NAD General: cooperative, healthy appearing, comfortable, no acute distress, well developed and alert Nutritional Appearance: well nourished Orientation/consciousness: patient oriented x3 Limitations: no limitations Neuro General: patient oriented x3 Psych Other: reports some anxiety at times, well managed with xanax. no concerns. Appearance: well kempt Mental Status: mental status grossly normal Speech and movement: Normal speech and movement present Affect: normal affect Attitude: cooperative Thought process: Normal thought process present Thought content: Normal thought content present Insight: Good insight present (Psych) Judgement: Good judgement present (Psych) Assessment & Plan Assessment & Plan (1) Opioid use disorder, severe, in sustained remission: Code(s): F11.21 - Opioid dependence, in remission Plan: * continue suboxone at current dose * follow up 3 months * encouraged to call office before next appt if needed Coding Level of Care Code Est Pt Level 3 (25498) Diagnoses Opioid use disorder, severe, in sustained remission F11.21
[2024-01-14 15:21] VITALS: BP 102/76; PULSE 74; O2SAT 95
== END 2024-01-14 15:46 | disposition home or self-care (01) ==
PROVIDERS: PCP Family Medicine; Visit Provider Nurse Practitioner Psychiatric/Mental Health
DX: F11.21 Opioid dependence, in remission (principal)
CPT/HCPCS: 99213

== ENCOUNTER → 2024-01-14 15:11 | Outpatient (BNVA) | payer OTHER, SELFPAY | PROVIDERS: PCP Family Medicine; Visit Provider Nurse Practitioner Psychiatric/Mental Health | DX: Z51.81 Encounter for therapeutic drug level monitoring (principal); F11.99 Opioid use, unspecified with unspecified opioid-induced disorder; F11.21 Opioid dependence, in remission ==

== ENCOUNTER 2024-04-02 15:11 | Outpatient (AMB) | payer OTHER, SELFPAY ==
[2024-04-02 15:15] VITALS: BP 100/60; PULSE 90; RESP 19; O2SAT 98
--- NOTE | 2024-04-02 15:15 | A.OFFVISCC_ITS ---
Vital Signs 04/02/24 15:15 BP 100/60 Blood Pressure Location Lt brachial Position Sitting Respiration 19 Pulse 90 Pulse Source Pulse Oximeter Pulse Oximetry (%) 98 Intake Visit Reasons: MAT Visit Allergies No Known Allergies Allergy (Verified 01/14/24 15:22) HPI HPI MAT Visit: Details: Patient presents for follow up Currently prescribed Suboxone 16mg daily No changes to medical history went on [place] vacation with his daughter no questions or concerns at this time [facility] Medical History Hypertension Surgical History History of surgery on arm Family History Mother HTN (hypertension) Father Liver cancer Stroke Prostate cancer Sister No problems noted. Other Substance use disorder Social History Housing: House Alcohol intake: current Alcohol intake frequency: a few times a month Patient Tobacco Use Status: Former Tobacco user e-Cigarette/Vaping Use: Currently Using Second Hand Smoke Exposure: No service: No Current occupational status: employed Current occupational exposures/hazards: No Cognitive needs: No Hearing needs: No Vision needs: No Review of Systems Const Reports as per HPI and Reports no additional complaints Physical Exam Vital Signs: Last Vital Signs Pulse 90 04/02/24 15:15 Resp 19 04/02/24 15:15 BP 100/60 04/02/24 15:15 Pulse Ox 98 04/02/24 15:15 Const Other: NAD General: cooperative, healthy appearing, comfortable, no acute distress, well developed and alert Nutritional Appearance: well nourished Orientation/consciousness: patient oriented x3 Limitations: no limitations Neuro General: patient oriented x3 Psych Appearance: well kempt Mental Status: mental status grossly normal Speech and movement: Normal speech and movement present Affect: normal affect Attitude: cooperative Thought process: Normal thought process present Thought content: Normal thought content present Insight: Good insight present (Psych) Judgement: Good judgement present (Psych) Assessment & Plan Assessment & Plan (1) Opioid use disorder, severe, in sustained remission: Code(s): F11.21 - Opioid dependence, in remission Category: Medical Plan: * continue suboxone at current dose * follow up 3 months * refill due at start of April
== END 2024-04-02 15:50 | disposition home or self-care (01) ==
PROVIDERS: PCP Family Medicine; Visit Provider Nurse Practitioner Psychiatric/Mental Health
DX: F11.21 Opioid dependence, in remission (principal)
CPT/HCPCS: 99213

== ENCOUNTER → 2024-04-02 15:11 | Outpatient (BNVA) | payer OTHER, SELFPAY | PROVIDERS: PCP Family Medicine; Visit Provider Nurse Practitioner Psychiatric/Mental Health | DX: Z51.81 Encounter for therapeutic drug level monitoring (principal); F11.99 Opioid use, unspecified with unspecified opioid-induced disorder; F11.21 Opioid dependence, in remission ==

== ENCOUNTER 2024-05-05 11:07 | Outpatient (AMB) | payer OTHER, SELFPAY ==
--- NOTE | 2024-05-05 11:07 | AM.OFFWIN_ITS ---
Intake Vital Signs 05/05/24 11:16 Height 5 ft 9 in Weight 219 lb 6 oz BMI 32.4 BP 118/82 Blood Pressure Location Lt brachial Position Sitting Respiration 14 Pulse 65 Pulse Source Pulse Oximeter Temp 98.1 F Temp Source Oral Pulse Oximetry (%) 94 Oxygen Delivery Method Room Air Intake Visit Reasons: est/ workmans comp deep cut right thumb Intake Note: Cut on left thumb. Went to [facility] in [place] on Sunday and they cleaned it. Xray were done, urgent care states thumb is not broken. 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 d/c home w/ wound care instructions Presents today for f/u. He is R hand dominant tdap 04/21/15 limited rom of fingers swollen, painful, tingling sensation using NSAID to help Exam: Right hand + radial pulse, edema of hand and fingers worse at base of thumb LROM d/t edema reports abnormal sensation at tip of thumb, + cap refill skin of dorsum with healing skin avulsion, wound base pink/red moist with granulation, no drainage, odor or warmth to suggest infection Plan: Refer to hand specialty Our of work until seen by Hand Specialists NSAIDs and APAP for pain control Cont dressing. [facility] on s/sx of infection [facility] Medical History Hypertension Surgical History History of surgery on arm Family History Mother HTN (hypertension) Father Liver cancer Stroke Prostate cancer Sister No problems noted. Other Substance use disorder Social History Housing: House Alcohol intake: current Alcohol intake frequency: a few times a month Patient Tobacco Use Status: Former Tobacco user e-Cigarette/Vaping Use: Currently Using Second Hand Smoke Exposure: No service: No Current occupational status: employed Current occupational exposures/hazards: No Cognitive needs: No Hearing needs: No Vision needs: No Physical Exam Vital Signs: Last Vital Signs Temp 98.1 F 05/05/24 11:16 Pulse 65 05/05/24 11:16 Resp 14 05/05/24 11:16 BP 118/82 05/05/24 11:16 Pulse Ox 94 05/05/24 11:16 Oxygen Delivery Method Room Air 05/05/24 11:16 BMI result Body Mass Index 32.4 Assessment & Plan Assessment & Plan (1) Encounter related to worker's compensation claim: Code(s): Z02.6 - Encounter for examination for insurance purposes Plan: . (2) Avulsion of skin of right thumb: Code(s): S61.001A - Unspecified open wound of right thumb without damage to nail, initial encounter Qualifiers: Encounter type: subsequent encounter Qualified Code(s): S61.001D - Unspecified open wound of right thumb without damage to nail, subsequent en counter Plan: . (3) Injury of digital nerve of thumb: Code(s): S64.30XA - Injury of digital nerve of unspecified thumb, initial encounter Qualifiers: Encounter type: initial encounter Laterality: right Qualified Code(s): S64.31XA - Injury of digital nerve of right thumb, initial encounter Plan: . Plan This note is constructed using voice recognition software. While every effort has been made to ensure accuracy in line installation supervisor, still errors may have been included Sometimes, these errors may affect the content or meaning of the given sentence . Total time spent caring for the patient today was 40 minutes. This includes time spent before the visit reviewing the chart, time spent during the visit, and time spent after the visit on documentation Orders: Referrals Hand Surgery Referral S61.001A - Unspecified open wound of right thumb without damage to nail, initial encounter, S64.30XA - Injury of digital nerve of unspeci fied thumb, initial encounter, Z02.6 - Encounter for examination for insurance purposes Coding Level of Care Code Est Pt Level 5 (17513) Diagnoses Encounter related to worker's compensation claim Z02.6 Avulsion of skin of right thumb, subsequent encounter S61.001D Encounter type: subsequent encounter Injury of digital nerve of right thumb, initial encounter S64.31XA Encounter type: initial encounter Laterality: right
[2024-05-05 11:16] VITALS: BP 118/82; PULSE 65; RESP 14; TEMP 36.7; O2SAT 94; BMI 32.4
== END 2024-05-05 11:48 | disposition home or self-care (01) ==
PROVIDERS: PCP Family Medicine; Visit Provider Nurse Practitioner Family
DX: S61.001A Unspecified open wound of right thumb without damage to nail, initial encounter (principal); S64.31XA Injury of digital nerve of right thumb, initial encounter; Z04.2 Encounter for examination and observation following work accident
CPT/HCPCS: 99215

== ENCOUNTER 2024-05-14 12:25 | Outpatient (REF) | payer OTHER, SELFPAY ==
--- NOTE | ~2024-05-14 | XR_ITS ---
EXAMINATION: XR HAND, RIGHT CLINICAL INFORMATION: Pain in right hand, attention thumb, pain in right wrist. COMPARISON: None available. TECHNIQUE: 4 views right wrist. 4 views right hand with attention to thumb. FINDINGS: Right wrist: Moderate degenerative changes in the first carpometacarpal joint with joint space narrowing and hypertrophic change. Bone mineralization is normal. Right hand: Linear radiodensity in the superficial soft tissues at the base of the thumb concerning for a foreign body, possibly a wire, versus artifact. Bone mineralization is normal. Joint spaces are preserved. Subchondral cystic lucency at the ulnar base of the fifth digit proximal phalanx. XR/XR wrist RT w scaphoid IMPRESSION: 1. Moderate degenerative changes first carpometacarpal joint. 2. Linear radiodensity in the superficial soft tissues at the base of the thumb concerning for a foreign body, possibly a wire, versus artifact. Correlation with clinical exam recommended to determine further management. 3. Recommend follow-up imaging in 10-14 days if fracture is suspected.
--- NOTE | ~2024-05-14 | XR_ITS ---
EXAMINATION: XR HAND, RIGHT CLINICAL INFORMATION: Pain in right hand, attention thumb, pain in right wrist. COMPARISON: None available. TECHNIQUE: 4 views right wrist. 4 views right hand with attention to thumb. FINDINGS: Right wrist: Moderate degenerative changes in the first carpometacarpal joint with joint space narrowing and hypertrophic change. Bone mineralization is normal. Right hand: Linear radiodensity in the superficial soft tissues at the base of the thumb concerning for a foreign body, possibly a wire, versus artifact. Bone mineralization is normal. Joint spaces are preserved. Subchondral cystic lucency at the ulnar base of the fifth digit proximal phalanx. XR/XR hand RT min 3V IMPRESSION: 1. Moderate degenerative changes first carpometacarpal joint. 2. Linear radiodensity in the superficial soft tissues at the base of the thumb concerning for a foreign body, possibly a wire, versus artifact. Correlation with clinical exam recommended to determine further management. 3. Recommend follow-up imaging in 10-14 days if fracture is suspected.
== END 2024-05-14 12:26 | disposition home or self-care (01) ==
LOC: HO.HOSX 12:25
PROVIDERS: PCP Family Medicine; Visit Provider Orthopaedic Surgery
DX: M79.641 Pain in right hand (principal); M25.531 Pain in right wrist; M79.7 Fibromyalgia; S60.011A Contusion of right thumb without damage to nail, initial encounter; R20.0 Anesthesia of skin
CPT/HCPCS: 73110; 73130; 99202

== ENCOUNTER 2024-05-14 12:25 | Outpatient (AMB) | payer OTHER, SELFPAY ==
--- NOTE | 2024-05-14 12:33 | MHC.OFFVIS ---
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 Right thumb is visibly swollen. Patient reports numbness and tingling but denies locking on fingers. Patient states right throbs and pain shoots up the arm. Patient describes pain 3 or 4 on a 0-10 pain scale. Reports taking ibuprofen for pain with minimal relief. 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 He cut his finger while working on repairing a fan. The dorsal aspect of the thumb was struck at the proximal phalanx level by the fan blade. He was seen the same day at [facility] where his wound was washed out, and he was told he did not have a fracture. He complains of a throbbing pain in his thumb extending into the dorsal aspect of the hand and his wrist, with limited relief from Ibuprofen. He reports that he had a fair amount of swelling in his thumb and his wrist shortly after the accident, and some numbness to the tip of his thumb, which was not present prior to his injury. He also has difficulty moving his thumb due to his pain. He says he has been leaving his laceration uncovered at home, and occasionally uses Bacitracin or peroxide to keep it clean. He says he was not given any Abx following his injury. He has not been working since his DOI. [facility] Medical History Hypertension Surgical History History of surgery on arm Family History Mother HTN (hypertension) Father Liver cancer Stroke Prostate cancer Sister No problems noted. 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 Current occupational exposures/hazards: No Cognitive needs: No Hearing needs: No Vision needs: No Review of Systems Const All systems reviewed & are unremarkable except as noted in HPI and below Physical Exam Const General: cooperative, healthy appearing and no acute distress Orientation/consciousness: patient oriented x3 HEENT Head: Yes normocephalic and Yes atraumatic Eyes EOM: EOMs intact bilaterally Resp Effort & Inspection: normal respiratory effort and able to speak in complete sentences Cardio Jugular venous distension: no JVD Skin General skin exam: turgor normal Rashes: no rashes Neuro General: patient oriented x3 Extrem Other: Evaluation of Right Upper Extremity: The patient is alert, oriented, and in no acute distress Neuro: Decreased sensation over dorsal aspect of distal phalanx of thumb, just distal to the wound. Normal sensation in the volar radial and ulnar digital nerve distributions in the pad of the thumb. Normal sensation to all other digits Vascular: Cap refill brisk ROM: With encouragement he could demonstrate thumb IP joint flexion, and full extension He could hold his thumb IP joint extended against resistance without pain Skin: Laceration/dorsal skin avulsion to the dorsal aspect of thumb at proximal phalanx level, measuring ~2cm length by ~8mm width This is trying to heal, no visible drainage today Mild swelling, no erythema No laceration to the volar side of his thumb Minimal Swelling in the dorsal hand & wrist + TTP over the snuffbox & scaphoid tubercle today No tenderness over the distal radius, DRUJ, or distal ulna No TTP over the radiocarpal or ulnocarpal joints Radiographs: 3 views of the right hand & wrist + a scaphoid view, with attention to the thumb, were taken and viewed by me today in clinic. Regarding the right hand, they show no fractures or dislocations. Regarding the right wrist, they show no fractures or dislocations Psych Appearance: grossly normal Affect: normal affect Attitude: cooperative Assessment & Plan Assessment & Plan (1) Fibromyalgia: Code(s): M79.7 - Fibromyalgia Category: Medical (2) Contusion, thumb: Code(s): S60.019A - Contusion of unspecified thumb without damage to nail, initial encounter Category: Medical (3) Numbness of right thumb: Code(s): R20.0 - Anesthesia of skin Category: Medical Plan Assessment & Plan: 1. Right thumb laceration and contusion Over the dorsal aspect of thumb at proximal phalanx level Measuring ~2cm length by ~8mm width DOI: 05/02/24, this is a work-related injury 2. Right thumb numbness, S/P laceration DOI: 05/02/24 Decreased sensation over dorsal aspect of distal phalanx of thumb distal to the laceration and contusion Normal sensation to the rest of the thumb, including the pad of the thumb I educated him about these conditions I recommend wound care & activity modification, and he is in agreement. I discussed activity modification and educated him on proper wound care, he should limit or avoid any heavy or repetitive activities for the next 2 weeks. He will work on gentle ROM exercises at home I ordered OT hand therapy to work on ROM & normalizing function at this time. He will continue to perform wound car at home, with Abx ointment & cleaning his wound with a 1:1 mix of hydrogen peroxide & water. He should keep this covered when out of the house, particularly while he is at work He is able to wash this with soap & water, but should avoid any underwater activities at this time. 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 He was given a note to remain out of work for the next 2 weeks, at least until his next appointment He will follow up in 2 weeks for a wound check and range of motion check. Hope fully we can return him back to work at that time.. Scribed for Ness Danielson MD by Minesh Barillas, medical auditor, on 05/14/24 at 1:05 PM, EST. Orders: Orders XR hand RT min 3V Today M79.641 - Pain in right hand XR wrist RT w scaphoid Today M25.531 - Pain in right wrist OT Evaluation and Treatment Today S60.019A - Contusion of unspecified thumb without damage to nail, initial encounter, S61.011A - Laceration without foreign body of right thumb without damage to nail, initial encounter Coding Level of Care Code New Pt Level 4 (48728) Diagnoses Fibromyalgia M79.7 Contusion, thumb S60.019A Numbness of right thumb R20.0
== END 2024-05-14 13:57 | disposition home or self-care (01) ==
PROVIDERS: PCP Family Medicine; Visit Provider Orthopaedic Surgery
DX: S60.019A Contusion of unspecified thumb without damage to nail, initial encounter (principal); S62.521A Displaced fracture of distal phalanx of right thumb, initial encounter for closed fracture; R20.0 Anesthesia of skin; M79.7 Fibromyalgia
CPT/HCPCS: 99203

== ENCOUNTER 2024-05-28 14:04 | Outpatient (AMB) | payer OTHER, SELFPAY ==
--- NOTE | 2024-05-28 14:22 | MHC.OFFVIS ---
Vital Signs 05/28/24 14:23 Height 5 ft 9 in Weight 219 lb 6 oz BMI 32.4 Intake Visit Reasons: Injury of digital nerve of right thumb Intake Note: Alan is a 43 yo right hand dominant male who presents today for a wound and ROM check s/p injury of right thumb, DOI 05/02/24. Patient reports he continues to go to OT, which he finds helpful. Patient expressed he has been unable to fully bend his right thumb. Allergies No Known Allergies Allergy (Verified 05/28/24 14:23) HPI HPI Injury of digital nerve of right thumb: Details: Alan is a 43 year old right hand dominant man who returns to discuss his right thumb workers comp injury, DOI: 05/02/24. He cut his finger while working on repairing a fan. The dorsal aspect of the thumb was struck at the proximal phalanx level by the fan blade. He was seen the same day at [facility] where his wound was washed out, and he was told he did not have a fracture. He says he is doing better and has been attending OT hand therapy. He feels this is helping but he still struggles to bring his thumb down to a fist. He says he still has some numbness to the tip of his thumb, which was not present prior to his injury. He has not been working since his DOI. 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 Normal sensation in the volar radial and ulnar digital nerve distributions in the pad of the thumb. Normal sensation to all other digits Vascular: Cap refill brisk ROM: With encouragement he could demonstrate thumb IP joint flexion, and full extension He could hold his thumb IP joint extended against resistance without pain Skin: Laceration/dorsal skin avulsion to the dorsal aspect of thumb at proximal phalanx level, measuring ~2cm length by ~8mm width This is trying to heal, no visible drainage today Mild swelling, no erythema No laceration to the volar side of his thumb Minimal Swelling in the dorsal hand & wrist + TTP over the snuffbox & scaphoid tubercle today No tenderness over the distal radius, DRUJ, or distal ulna No TTP over the radiocarpal or ulnocarpal joints Radiographs: three views of the right hand and wrist from 05/14/2024 were again reviewed by me today. They show no fractures or dislocations. Psych Appearance: grossly normal Affect: normal affect Attitude: cooperative Assessment & Plan Assessment & Plan (1) Contusion, thumb: Code(s): S60.019A - Contusion of unspecified thumb without damage to nail, initial encounter Category: Medical (2) Numbness of right thumb: Code(s): R20.0 - Anesthesia of skin Category: Medical (3) Fibromyalgia: Code(s): M79.7 - Fibromyalgia Category: Medical Plan Assessment & Plan: 1. Right thumb laceration and contusion Over the dorsal aspect of thumb at proximal phalanx level Measuring ~2cm length by ~8mm width DOI: 05/02/24, this is a work-related injury 2. Right thumb numbness, S/P laceration DOI: 05/02/24 Decreased sensation over dorsal aspect of distal phalanx of thumb distal to the laceration and contusion Normal sensation to the rest of the thumb, including the pad of the thumb I educated him about these conditions I recommend he continue with OT hand therapy & activity modification. I discussed activity modification, he should limit or avoid any heavy or repetitive activities for the next 2 weeks, this includes any heavy or repetitive pinching or gripping activities involving his thumb He will continue to work with OT hand therapy on ROM & normalizing function at this time, with the goal of returning to work. 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 He was given a note to return to work on light duty, with a 2lb weight limit with his right hand, and allowed time off to attend OT hand therapy, beginning on 06/02/24 for the next 4 weeks. He will follow up in 4 weeks for a ROM check, and anticipate RTW full duty at that time. He may contact the clinic if he wishes to return to full duty prior to his next appointment Scribed for Ness Danielson MD by Minesh Barillas, medical doctor md/medical director, on 05/28/24 at 2:50 PM, EST. Coding Level of Care Code Est Pt Level 3 (38689) Diagnoses Contusion, thumb S60.019A Numbness of right thumb R20.0 Fibromyalgia M79.7
[2024-05-28 14:23] VITALS: BMI 32.4
== END 2024-05-28 15:09 | disposition home or self-care (01) ==
PROVIDERS: PCP Family Medicine; Visit Provider Orthopaedic Surgery
DX: S60.011A Contusion of right thumb without damage to nail, initial encounter (principal); R20.0 Anesthesia of skin; M79.7 Fibromyalgia
CPT/HCPCS: 99213

== ENCOUNTER → 2024-05-28 14:04 | Outpatient (BNVA) | payer OTHER, SELFPAY | PROVIDERS: PCP Family Medicine; Visit Provider Orthopaedic Surgery | DX: S61.011D Laceration without foreign body of right thumb without damage to nail, subsequent encounter (principal); S60.011D Contusion of right thumb without damage to nail, subsequent encounter; R20.0 Anesthesia of skin; M79.7 Fibromyalgia | CPT/HCPCS: 99212 ==

== ENCOUNTER 2024-06-05 08:00 | Outpatient (REF) | payer OTHER, SELFPAY ==
[2024-06-05 09:20] LABS: Anion Gap 10 (12-20); Blood Urea Nitrogen 17 mg/dL (9-16); Calcium 9.8 mg/dL (8.4-10.2); Carbon Dioxide 30 mmol/L (22-29); Chloride 106 mmol/L (96-108); Cholesterol 270 mg/dL (<200); Estimated Glomerular Filt Rate > 60; Glucose Fasting 111 mg/dL (60-99); HDL Cholesterol 19 mg/dL (>40); Potassium 4.2 mmol/L (3.3-5.1); Sodium 142 mmol/L (135-145); Triglycerides 1050 mg/dL (<150)
== END 2024-06-05 08:01 | disposition home or self-care (01) ==
LOC: HO.LAB 08:00
PROVIDERS: PCP Family Medicine; Visit Provider Family Medicine
DX: Z00.00 Encounter for general adult medical examination without abnormal findings (principal); E78.2 Mixed hyperlipidemia
CPT/HCPCS: 36415; 80048; 80061

== ENCOUNTER 2024-06-12 16:03 | Outpatient (AMB) | payer OTHER, SELFPAY ==
--- NOTE | 2024-06-12 16:15 | MHC.PC.OV ---
Vital Signs 06/12/24 16:17 06/12/24 16:59 Height 5 ft 9 in Weight 219 lb BMI 32.3 BP 122/70 Blood Pressure Location Lt brachial Position Sitting Respiration 14 Pulse 65 Pulse Source Pulse Oximeter Pulse Oximetry (%) 93 97 Oxygen Delivery Method Room Air Intake Visit Reasons: cpe with fu labs from the nd Intake Note: physical and follow up labs. Allergies No Known Allergies Allergy (Verified 06/12/24 16:17) Tobacco use date assessed: 06/12/24 Dental Screening Dental Screen Date: 12/20/23 HPI HPI Comments History of Present Illness Details This is a 44 year old male with a pmhx of prediabetes, obesity, dyslipidemia, opioid use disorder on Suboxone, HTN and anxiety presenting for annual physical exam. Patient's mother was recently diagnosed wtih a genetic heart condition. She has a bicuspid aortic valve. Patient requests echo for screening. He was fasting for labs, but he has worsening hypertriglyceridemia. HDL also low. He takes Fenofibrate 54 mg and Crestor 40 mg. Denies noncompliance. States he doesn't drink beer and only has alcohol once in a while. He's trying to be low carb/low sugar given prediabetes. Hypertension is well controlled. Anxiety is treated with Alprazolam. ROS: Constitutional: No unexplained weight loss, fever, chills, fatigue or night sweats. Eyes: No vision changes, blurry vision, double vision, eye pain, eye redness, eye discharge. ENT: No hearing loss, sneezing, congestion, runny nose or sore throat. Respiratory: No shortness of breath, cough or sputum production. Cardiovascular: No chest pain, chest pressure or chest discomfort. No palpitations or pedal edema. Gastrointestinal: No anorexia, nausea, vomiting or diarrhea. No abdominal pain or blood in stool. Genitourinary: No dysuria, hematuria, urinary frequency. Neurologic: No headache, dizziness, syncope, unilateral weakness, ataxia, numbness or tingling in the extremities. Musculoskeletal: No joint swelling Hematologic/Lymphatics: No bleeding or bruising. Skin: No rash Endocrine: No cold or heat intolerance. No polyuria or polydipsia. Psychiatric: .No SI/HI. Physical exam: Constitutional: Alert, in no distress. Head: Normocephalic. Eyes: Pupils are equal, round and reactive to light. Extraocular muscles intact. Ear, Nose and Throat: Canals clear. TMs normal. Normal nasal mucosa. No nasal discharge. No oral lesions. Neck: Supple, Full range of motion. No lymphadenopathy. No palpable thyroid masses. Respiratory: Clear to auscultation. Cardiovascular: S1 S2 regular. No murmurs. Gastrointestinal: Abdomen soft, non-tender, non-distended. Normal bowel sounds. No palpable masses. Neurologic: No focal neurological deficits. Symmetric patellar reflexes. Moves all extremities spontaneously. Sensation intact bilaterally. Skin: No rashes or lesions. Musculoskeletal: No gross deformities. Normal range of motion. Extremities: Warm and well perfused. No clubbing, cyanosis or edema. 3+ peripheral pulses bilaterally. Psychiatric: Normal mood and affect [facility] Medical History Hypertension Surgical History History of surgery on arm Family History Mother HTN (hypertension) Father Liver cancer Stroke Prostate cancer Sister No problems noted. 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 Parth Gomez, Juliet Nguyen, Juan Gonzalez and colleagues, with an educational aj from [employer]. Physical exam (Primary Care) Vital Signs: Last Vital Signs Pulse 65 06/12/24 16:17 Resp 14 06/12/24 16:17 BP 122/70 06/12/24 16:17 Pulse Ox 97 06/12/24 16:59 Oxygen Delivery Method Room Air 06/12/24 16:17 BMI result Body Mass Index 32.3 Tobacco/Smoking Status: Tobacco use Status Tobacco use date assessed 06/12/24 06/12/24 16:20 Patient Tobacco Use Status Former Tobacco user 06/12/24 16:17 e-Cigarette/Vaping Use Currently Using 06/12/24 16:17 Thrive Assessment: Date of Thrive Assessment Date Thrive assessed 05/14/23 06/12/24 16:17 Results Reviewed Results Reviewed: Laboratory Tests 08/09/23 12/10/23 06/05/24 07:35 08:41 08:15 Fasting Glucose 111 H Hemoglobin A1c % 5.7 AST 30 ALT 28 Triglycerides 1050 H Cholesterol 270 H LDL Cholesterol, Calc TNP HDL Cholesterol 19 L PSA Screen 0.46 TSH 3.09 Assessment and Plan Assessment & Plan (1) Routine physical examination: Code(s): Z00.00 - Encounter for general adult medical examination without abnormal findings Plan: Patient is seen today for a routine physical. As part of this visit we reviewed the following issues, which are considered and essential part of preventative health in this age group: - Testicular cancer screening, which includes self exam teaching - Screening for colon cancer - due age 45 - Discussed Prostate cancer screening - Blood pressure screening - Cholesterol screening - Nutritional and exercise counseling - Counseling of injury prevention including fire prevention, smoke alarms and seat belt usage - Screening for depression - Prevention of and/or testing for infectious diseases - Education about skin cancer - Recommendations about immunizations - Recommendation of an eye exam - Screening for substance abuse Ordered echo to screen for CVD/family history bicuspid aortic valve. (2) Mixed hyperlipidemia: Code(s): E78.2 - Mixed hyperlipidemia Plan: Patient declined referral to principal technical specialist. Lifestyle modifications reviewed. Continue Rosuvastatin 40 mg daily. Increase fenofibrate to 160 mg daily. Reviewed potential side effects and instructed to stop medication and call if he develops body aches, muscle aches, muscle weakness or increased fatigue on the medication regimen. Return to lab in 8 weeks to check LFTs and Lipid panel. Plan Follow up in 3 months for prediabetes, HLD, lab review. Orders: Orders Hemoglobin A1c Today E78.5 - Hyperlipidemia, unspecified, R73.03 - Prediabetes LDL Cholesterol Direct Today E78.5 - Hyperlipidemia, unspecified, R73.03 - Prediabetes CA echo transthoracic complete Today Z13.6 - Encounter for screening for cardiovascular disorders, Z82.79 - Family history of other congenital malformations, deformations and chromosomal abnormalities Lipid Panel 2 Months E78.5 - Hyperlipidemia, unspecified, R73.03 - Prediabetes Alanine Aminotransferase Today E78.5 - Hyperlipidemia, unspecified, R73.03 - Prediabetes, R79.89 - Other specified abnormal findings of blood chemistry Aspartate Amino Transferase Today E78.5 - Hyperlipidemia, unspecified, R73.03 - Prediabetes, R79.89 - Other specified abnormal findings of blood chemistry Medications: New fenofibrate 160 mg PO DAILY 90 tabs 0RF Discontinued fenofibrate Discontinued Reason: Doctor's Order 54 mg PO DAILY 30 days 30 tabs 3RF Coding Level of Care Code Est Pt Prev Care 40-64y(47173) Diagnoses Routine physical examination Z00.00 Mixed hyperlipidemia E78.2
[2024-06-12 16:17] VITALS: BP 122/70; PULSE 65; RESP 14; O2SAT 93; BMI 32.3
[2024-06-12 16:59] VITALS: O2SAT 97
== END 2024-06-12 17:01 | disposition home or self-care (01) ==
PROVIDERS: PCP Family Medicine; Visit Provider Physician Assistant Medical
DX: Z00.00 Encounter for general adult medical examination without abnormal findings (principal); E78.2 Mixed hyperlipidemia
CPT/HCPCS: 99396

== ENCOUNTER 2024-06-23 15:32 | Outpatient (AMB) | payer OTHER, SELFPAY ==
--- NOTE | 2024-06-23 15:39 | A.OFFVISCC_ITS ---
Intake Visit Reasons: MAT Visit Allergies No Known Allergies Allergy (Verified 06/24/24 11:20) HPI HPI MAT Visit: Details: Patient presents for follow up Currently prescribed Suboxone 8mg BID has been out of work since May 02 due to injury on his thumb recent pcp appt --triglycerides very elevated. --labs reviewed No concerns related to suboxone/recovery [facility] Medical History (Updated 06/12/24 @ 21:19 by SARA Phillips) Family history of bicuspid aortic valve Hypertension Surgical History History of surgery on arm Family History Mother HTN (hypertension) Father Liver cancer Stroke Prostate cancer Sister No problems noted. 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
== END 2024-06-23 15:56 | disposition home or self-care (01) ==
PROVIDERS: PCP Family Medicine; Visit Provider Nurse Practitioner Psychiatric/Mental Health
DX: F11.21 Opioid dependence, in remission (principal)
CPT/HCPCS: 99213

== ENCOUNTER → 2024-06-23 15:32 | Outpatient (BNVA) | payer OTHER, SELFPAY | PROVIDERS: PCP Family Medicine; Visit Provider Nurse Practitioner Psychiatric/Mental Health | DX: Z51.81 Encounter for therapeutic drug level monitoring (principal); F11.99 Opioid use, unspecified with unspecified opioid-induced disorder; F11.21 Opioid dependence, in remission ==

== ENCOUNTER 2024-06-24 10:34 | Outpatient (AMB) | payer OTHER, SELFPAY ==
--- NOTE | 2024-06-24 11:05 | A.OFFVIS_ITS ---
Vital Signs 06/24/24 11:16 Height 5 ft 9 in Weight 219 lb BMI 32.3 Intake Visit Reasons: OV- right thumb WC injury, DOI 05/02/24 Intake Note: Alan is a 44 year old right hand dominant male who presents today for a ROM check s/p right thumb worker's comp related injury, DOI 05/02/24. Patient reports his right thumb is still a little sore, specially after OT. Patient shares OT has been helpful allowing him to move his thumb a little more. He is currently on 2lb weight restriction and would like to discuss work status today. Allergies No Known Allergies Allergy (Verified 06/24/24 11:20) HPI HPI OV- right thumb WC injury, DOI 05/02/24: Details: Alan is a 43 year old right hand dominant man who returns to discuss his right thumb workers comp injury, DOI: 05/02/24. He cut his finger while working on repairing a fan. The dorsal aspect of the thumb was struck at the proximal phalanx level by the fan blade. He says he is doing better, still with some soreness in his thumb, and has been attending OT hand therapy. He feels this is helping but his thumb soreness is worse after an OT session. He says he still has some numbness to the tip of his thumb, which was not present prior to his injury. 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 He would like to discuss his work restrictions today. COUNTS INCLUDE 234 BEDS AT THE [facility] Medical History (Updated 06/12/24 @ 21:19 by SARA Phillips) Family history of bicuspid aortic valve Hypertension Surgical History History of surgery on arm Family History Mother HTN (hypertension) Father Liver cancer Stroke Prostate cancer Sister No problems noted. 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 Normal sensation in the volar radial and ulnar digital nerve distributions in the pad of the thumb. Normal sensation to all other digits Vascular: Cap refill brisk ROM: He can oppose his thumb to the tips of all digits and base of the small finger He could demonstrate thumb IP joint flexion, and full extension He could hold his thumb IP joint extended against resistance without pain Smooth and full wrist range of motion. No longer tender to palpation, though he does have some pain when trying to work on improving passive flexion at the IP joint. Skin: Laceration/dorsal skin avulsion to the dorsal aspect of thumb at proximal phalanx level, measuring ~2cm length by ~8mm width, which appears to be healing very well with good sealing of the wound No swelling, no erythema or drainage Psych Appearance: grossly normal Affect: normal affect Attitude: cooperative Assessment & Plan Assessment & Plan (1) Laceration of right thumb: Code(s): S61.011A - Laceration without foreign body of right thumb without damage to nail, initial encounter Category: Medical (2) Contusion, thumb: Code(s): S60.019A - Contusion of unspecified thumb without damage to nail, initial encounter Category: Medical (3) Numbness of right thumb: Code(s): R20.0 - Anesthesia of skin Category: Medical (4) Fibromyalgia: Code(s): M79.7 - Fibromyalgia Category: Medical Plan Assessment & Plan: 1. Right thumb laceration and contusion Over the dorsal aspect of thumb at proximal phalanx level Measuring ~2cm length by ~8mm width DOI: 05/02/24, this is a work-related injury 2. Right thumb numbness, S/P laceration DOI: 05/02/24 Decreased sensation over dorsal aspect of distal phalanx of thumb distal to the laceration and contusion Normal sensation to the rest of the thumb, including the pad of the thumb I educated him about these conditions I recommend he continue with OT hand therapy & activity modification I discussed activity modification, he is able to use his hand for light & medium weight activities, and should slowly increase his weight limit over the next few weeks. 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 He was given a note to return to work on 06/30/24, full duty without restrictions. 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 Scribed for Ness Danielson MD by Minesh Barillas, medical imaging director, on 06/24/24 at 11:30 AM, EST. Coding Level of Care Code Est Pt Level 3 (11782) Diagnoses Laceration of right thumb S61.011A Contusion, thumb S60.019A Numbness of right thumb R20.0 Fibromyalgia M79.7
[2024-06-24 11:16] VITALS: BMI 32.3
== END 2024-06-24 11:34 | disposition home or self-care (01) ==
PROVIDERS: PCP Family Medicine; Visit Provider Orthopaedic Surgery
DX: S61.011A Laceration without foreign body of right thumb without damage to nail, initial encounter (principal); S60.019A Contusion of unspecified thumb without damage to nail, initial encounter; M79.7 Fibromyalgia
CPT/HCPCS: 99213

== ENCOUNTER → 2024-06-24 10:34 | Outpatient (BNVA) | payer OTHER, SELFPAY | PROVIDERS: PCP Family Medicine; Visit Provider Orthopaedic Surgery | DX: S61.011D Laceration without foreign body of right thumb without damage to nail, subsequent encounter (principal); S60.011D Contusion of right thumb without damage to nail, subsequent encounter; R20.0 Anesthesia of skin; M79.7 Fibromyalgia | CPT/HCPCS: 99212 ==

== ENCOUNTER 2024-06-26 10:00 | Outpatient (RCR) | payer OTHER, SELFPAY ==
--- NOTE | 2024-05-21 10:55 | MHC.OT.EP ---
[address] [phone] Occupational Therapy Plan of Care Patient Name: Alan Pickett Date of Evaluation: 05/21/24 Diagnosis: Laceration of dorsum of R thumb Contusion of R thumb Pain Location: dorsum of R thumb Pain Score: 3 Pain Scale Used: Numeric (0 - 10) Aggravating Factors: Pt reports the joints and wound (healing well) are stiff Alleviating Factors: Assessment: Pt is a 43 yr . old R hand dominant male who injured his R thumb on 05/02 while at work for [employer]. 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 and reports he was trying to stop a fan from working when his R thumb hit the blade of his thumb lacerating the dorsum of his 1st digit. He went to urgent care in [place] where they cleaned the wound and wrapped it up (no stitches). Pt then saw Dr. Lal the following Sunday and he referred him to Dr. Danielson. Pt had 2 X-rays of his hand and wrist negative for fractures. He reports mild pain, numbness (distal tip and over the healing wound), and stiffness of his R Thumb. 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 Thank you once again for your referral.
== END 2024-06-26 12:33 | disposition home or self-care (01) ==
LOC: HO.OT 10:00
PROVIDERS: PCP Family Medicine; Visit Provider Orthopaedic Surgery
DX: S61.011D Laceration without foreign body of right thumb without damage to nail, subsequent encounter (principal); S60.01 Contusion of thumb without damage to nail
CPT/HCPCS: 97110; 97140; 97165; 97530; 97535

== ENCOUNTER → 2024-08-01 13:39 | Outpatient (REF) | payer OTHER, SELFPAY ==
--- NOTE | 2024-08-01 13:42 | CA_ITS ---
Transthoracic Echocardiogram Patient (Last, First, Middle): Alan Pickett K Gender: Male Date of : 1980 Age: 44 Procedure Date: 08/01/2024 Procedure Type: Transthoracic Echocardiogram Location: OP Height: 175.26 cm Weight: 97.52 kg BSA: 2.13 m2 Heart Rate: 50 bpm BP: 110 / 70 mmHg Wallpaper Printer: ELENA Referring MD: Kaela RUIZ Symptoms: Z13.6 - Encounter for screening for cardiovascular disorders Study Quality: Fair ECG Rhythm: Bradycardia Conclusions: - The left ventricular systolic function is normal. The calculated ejection fraction is 68% by biplane method. - No obvious valvular pathology seen on this study. Findings Left Ventricle Normal left ventricular cavity size. There is normal left ventricular wall thickness. The left ventricular systolic function is normal. The calculated ejection fraction is 68% by biplane method. There is no evidence of regional wall motion abnormalities. Diastolic function is normal for age. Right Ventricle Mildly increased right ventricular cavity size. There is normal right ventricular systolic function. Atria Both atria are normal in size. Aortic Valve There is a normal trileaflet aortic valve. There is no aortic valve stenosis. There is no aortic valve regurgitation. Mitral Valve The mitral valve appears normal. There is trace mitral valve regurgitation. There is no mitral valve stenosis. Pulmonic Valve The pulmonic valve is likely normal. Tricuspid Valve There is trace tricuspid valve regurgitation. There is no evidence of pulmonary hypertension. Great Vessels The asc aorta is normal in size. Venous The inferior vena cava is normal in size and collapses greater than 50% with inspiration. Pericardium/Pleural There is no evidence of pericardial effusion. Prior Study Comparison No prior study available for comparison. Recommendations, Care & Conclusions No obvious valvular pathology seen on this study. Measurements 2D Linear Measurements IVSd: 0.95 0.6-0.9/0.6-1.0 cm LVIDd: 4.34 3.9-5.3/4.2-5.9 cm LVIDd Index: 2.04 2.4-3.2/2.2-3.1 cm/m2 LVIDs: 3.07 2.0-3.6 cm LVPWd: 1.05 0.7-1.1 cm LA Diam: 2.60 2.7-3.8/3.0-4.0 cm LAIDs Index: 1.22 1.5-2.3 cm/m2 LV Mass: 179.89 67-162/88-224 g LV Mass Index: 84.46 43-95/49-115 g/m2 LVOT Diam: 1.90 3.0+(-)1.3 cm 2D Systolic Function EF 4C: 63.80 >55% EF 2C: 69.30 >55% EF BiP: 67.50 >55% Mitral Valve MV Pk E: 1.06 MV PK A: 0.68 MV Decel Time: 255.00 E/A: 1.60 E'Lateral: 12.50 E'Medial: 8.59 E/E' Med: 12.30 E/E' Lat: 8.50 PHT: 75.00 MVA PHT: 2.93 Decel Magoffin: 4.14 Aortic Valve AoV Pk Jonathan: 1.48 AoV Mn Jonathan: 1.05 AoV VTI: 0.35 AoV Pk Grad: 9.00 Aov Mn Grad: 5.00 ABENA Cont.VTI: 2.33 LVOT LVOT Pk Jonathan: 1.32 LVOT Mn Jonathan: 0.85 LVOT VTI: 0.29 LVOT Pk Grad: 7.00 LVOT Mn Grad: 3.00 LVOT Diam: 1.90 LVOT Area: 2.84 Diastolic Function MV Pk E: 1.06 MV Pk A: 0.68 E/A: 1.60 E'Medial: 8.59 E/E' Med: 12.30 E' Laterial: 12.50 E/E' Lat: 8.50 Right Ventricle TAPSE (mm): 19.40 TVS' Jonathan: 11.40 Tricuspid Valve TR Pk Jonathan: 1.75 TR Pk Grad: 12.00 RA Press: 3.00 RVSP: 15.00 Great Vessels Aorta Sinus of Valsalva: 3.30 2.0-3.5 cm Ao Asc: 3.20 2.1-3.4 cm Pulmonary Valve PV Pk Jonathan: 1.05 Peak PV Grad: 4.00 Updated in Other Vendor System with Status of Final Sherwin Mattson MD electronically signed on 08/01/2024 6:25:37 PM with status of Final
== END ==
LOC: HO.CARD 13:39
PROVIDERS: PCP Family Medicine; Visit Provider Physician Assistant Medical
DX: Z13.6 Encounter for screening for cardiovascular disorders (principal); Z82.79 Family history of other congenital malformations, deformations and chromosomal abnormalities
CPT/HCPCS: 93306

== ENCOUNTER → 2024-08-01 13:42 | Outpatient (BNV) | payer OTHER, SELFPAY | PROVIDERS: PCP Family Medicine; Visit Provider Internal Medicine | DX: Z13.6 Encounter for screening for cardiovascular disorders (principal) | CPT/HCPCS: 93306 ==

== ENCOUNTER 2024-08-29 08:11 | Outpatient (REF) | payer OTHER, SELFPAY ==
[2024-08-29 11:47] LABS: Alanine Aminotransferase 40 U/L (0-40); Aspartate Amino Transferase 42 U/L (5-37); Cholesterol 278 mg/dL (<200); HDL Cholesterol 36 mg/dL (>40); Triglycerides 429 mg/dL (<150)
[2024-08-29 11:58] LABS: Estimated Average Glucose 123 mg/dL; Hemoglobin A1C 200.1585 umol/L; Hemoglobin A1c % 5.9 % (<6.0); Total Hemoglobin (HGBA1C) 4900.5119 umol/L
[2024-09-01 10:53] LABS: LDL Cholesterol Direct 186 mg/dL (<100)
== END 2024-08-29 08:12 | disposition home or self-care (01) ==
LOC: HO.WFDLDS 08:11
PROVIDERS: Visit Provider Physician Assistant Medical
DX: R79.89 Other specified abnormal findings of blood chemistry (principal); R73.03 Prediabetes; E78.5 Hyperlipidemia, unspecified
CPT/HCPCS: 36415; 80061; 83036; 83721; 84450; 84460

== ENCOUNTER 2024-09-04 15:37 | Outpatient (AMB) | payer OTHER, SELFPAY ==
--- NOTE | 2024-09-04 16:11 | MHC.PC.OV ---
Vital Signs 09/04/24 16:21 Height 5 ft 9 in Weight 216 lb 2 oz BMI 31.9 BP 112/53 L Blood Pressure Location Rt brachial Position Sitting Respiration 16 Pulse 64 Pulse Source Pulse Oximeter Temp 97.9 F Temp Source Temporal Artery Scan Pulse Oximetry (%) 94 Oxygen Delivery Method Room Air Intake Visit Reasons: Dr. Lal follow up lab results Intake Note: follow up labs Allergies No Known Allergies Allergy (Verified 09/04/24 16:19) Tobacco use date assessed: 06/12/24 Dental Screening Dental Screen Date: 12/20/[address] Lal follow up lab results HPI Details 44 y/o male presents to f/u labs. Labs drawn 08/29/24. Reviewed labs with pt. Triglycerides 429. TC 278. LDL 186. HDL low at 36. PFSH Medical History (Updated 06/12/24 @ 21:19 by SARA Phillips) Family history of bicuspid aortic valve Hypertension Surgical History History of surgery on arm Family History Mother HTN (hypertension) Father Liver cancer Stroke Prostate cancer Sister No problems noted. 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 1. Little interest or pleasure in doing things: several days 3. Trouble falling or staying asleep, or sleeping too much: several days 4. Feeling tired or having little energy: several days 5. Poor appetite or overeating: not at all 6. Feeling bad about yourself - or that you are a failure or have let yourself or your family down: not at all 7. Trouble concentrating on things, such as reading the newspaper or watching television: not at all 8. Moving or speaking so slowly that other people could have noticed. Or the opposite - being so fidgety or restless that you have been moving around a lot more than usual: not at all 9. Thoughts that you would be better off or of hurting yourself in some way: not at all Source: Developed by Drs. Parth Gomez, Juliet Nguyen, Juan Gonzalez and colleagues, with an educational aj from [employer]. Thrive Questionnaire Date Thrive assessed: 05/14/23 I am a: Patient What is your living situation today?: I have a steady place to live Within the past 12 months, did the food you bought not last and you didn't have the money to get more?: Never true Within the past 12 months, did you worry whether your food would run out before you got money to buy more?: Never true Do you have trouble paying for medicines?: No Do you have trouble getting transportation to medical appointments?: No Do you have trouble paying your heating and electricity bill?: No Do you have trouble taking care of your child, family member or friend?: No Do you have trouble with day-to-day activities such as bathing, preparing meals, shopping, managing finances, etc.?: No Are you currently unemployed and looking for a job?: No Are you interested in more education?: No Please select the resources that you would like help with: None Currently or been in a relationship where the following occur: No concerns reported THRIVE Score: 0 AUDIT C Alcohol Use Questionnaire (AUDIT-C) 1. How often do you have a drink containing alcohol?: 2-4 times a month 2. How many drinks containing alcohol do you have on a typical day when you are drinking?: 1 or 2 3. How often do you have six or more drinks on one occasion?: Never Total Score: 2 KELLY-7 AMB Questionnaire KELLY-7 Date KELLY - 7 assessed: 12/20/23 Feeling nervous, anxious, or on edge: 3 = Nearly every day Not being able to stop or control worryin = Several days Worrying too much about different things: 0 = Not at all Trouble relaxin = More than half the days Being so restless that it is hard to sit still: 0 = Not at all Becoming easily annoyed or irritable: 1 = Several days Feeling afraid as if something awful might happen: 0 = Not at all Total KELLY-7 score (0-4 normal; 5-9 mild; 10-14 moderate; 15-21 severe): 7 Source: Developed by Drs. Parth Gomez, Juliet Nguyen, Juan Gonzalez and colleagues, with an educational aj from [employer]. Review of Systems Const Denies chills, Denies fatigue, Denies fever(s), Denies headache(s) and Denies weakness ENT Denies dizziness and Denies headache(s) Card Denies dyspnea Resp Denies cough, Denies dyspnea, Denies wheezing and Denies other (shortness of breath) Musc Denies numbness and Denies tingling Neuro Denies dizziness, Denies headache(s), Denies numbness, Denies tingling and Denies weakness Psych Denies anxiety and Denies depression Endo Denies fatigue Aller/Immun Denies wheezing Physical exam (Primary Care) Vital Signs: Last Vital Signs Temp 97.9 F 09/04/24 16:21 Pulse 64 09/04/24 16:21 Resp 16 09/04/24 16:21 BP 112/53 L 09/04/24 16:21 Pulse Ox 94 09/04/24 16:21 Oxygen Delivery Method Room Air 09/04/24 16:21 BMI result Body Mass Index 31.9 Tobacco/Smoking Status: Tobacco use Status Tobacco use date assessed 06/12/24 09/04/24 16:12 Patient Tobacco Use Status Former Tobacco user 09/04/24 16:12 e-Cigarette/Vaping Use Currently Using 09/04/24 16:12 Thrive Assessment: Date of Thrive Assessment Date Thrive assessed 05/14/23 09/04/24 16:12 Currently or been in a relationship where the following occur: No concerns reported Const General: well developed; No acute distress Nutritional Appearance: well nourished Orientation/consciousness: patient oriented x3 HENMT Head: Yes normocephalic and Yes atraumatic Eyes General: appearance normal, both eyes and all related structures Pupils: Equal, round and reactive pupils present EOM: EOMs intact bilaterally Resp Effort & Inspection: normal respiratory effort Neuro General: patient oriented x3 and gait normal Cranial nerves: Yes Equal, round and reactive pupils present Psych Affect: normal affect Coding Level of Care Code Est Pt Level 3 (09414) Diagnoses Mixed hyperlipidemia E78.2 Elevated liver enzymes R74.8 Assessment & Plan Assessment & Plan (1) Mixed hyperlipidemia: Code(s): E78.2 - Mixed hyperlipidemia Category: Medical Plan: ongoing mixed hyperlipidemia with high LDL cholesterol and very high triglycerides he has not tolerated statins. will try Repatha he says he is having trouble tolerating fenofibrate at 160 mg daily. Will try 120 mg daily. He also as some 50 mg tablets and can try this if he is not tolerating other doses of fenofibrate. (2) Elevated liver enzymes: Code(s): R74.8 - Abnormal levels of other serum enzymes Category: Medical Plan: Patient has had fluctuating liver enzymes currently elevated check liver ultrasound encouraged weight loss Orders: Orders US abdomen kaur w elastography Today R74.8 - Abnormal levels of other serum enzymes Medications: New evolocumab (Repatha Chelseaick) 140 mg subcut Q2W 28 days 2 mL 3RF fenofibrate 120 mg PO DAILY 30 days 30 tabs 3RF
[2024-09-04 16:21] VITALS: BP 112/53; PULSE 64; RESP 16; TEMP 36.6; O2SAT 94; BMI 31.9
== END 2024-09-04 17:05 | disposition home or self-care (01) ==
PROVIDERS: PCP Family Medicine; Visit Provider Family Medicine
DX: E78.2 Mixed hyperlipidemia (principal); R74.8 Abnormal levels of other serum enzymes

== ENCOUNTER 2024-09-17 15:00 | Outpatient (AMB) | payer OTHER, SELFPAY ==
--- NOTE | 2024-09-17 15:34 | A.OFFVISCC_ITS ---
Intake Visit Reasons: MAT Visit Allergies No Known Allergies Allergy (Verified 09/04/24 16:19) HPI HPI MAT Visit: Details: Patient presents for follow up Current suboxone dose is 8mg BID No issues related to medication--does report ongoing back pain (chronic) Has tried splitting dose up to have it more frequently, but did not find it helpful Has been following up with PCP and getting tests completed Review of Systems Const Reports as per HPI and Reports no additional complaints Physical Exam Const General: cooperative, healthy appearing and well groomed Orientation/consciousness: patient oriented x3 Limitations: no limitations Neuro General: patient oriented x3 Psych Speech and movement: Normal speech and movement present Affect: normal affect Attitude: cooperative Thought process: Normal thought process present Thought content: Normal thought content present Insight: Good insight present (Psych) Judgement: Good judgement present (Psych) Assessment & Plan Assessment & Plan (1) Opioid use disorder, severe, in sustained remission: Code(s): F11.21 - Opioid dependence, in remission Category: Medical Plan: * continue suboxone at current dose * refill not due at this time will send end october * follow up follow up end december [facility] Medical History (Updated 06/12/24 @ 21:19 by SARA Phillips) Family history of bicuspid aortic valve Hypertension Surgical History History of surgery on arm Family History Mother HTN (hypertension) Father Liver cancer Stroke Prostate cancer Sister No problems noted. 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
== END 2024-09-17 15:51 | disposition home or self-care (01) ==
PROVIDERS: PCP Family Medicine; Visit Provider Nurse Practitioner Psychiatric/Mental Health
DX: F11.21 Opioid dependence, in remission (principal)
CPT/HCPCS: 99213

== ENCOUNTER 2024-09-29 08:52 | Outpatient (REF) | payer OTHER, SELFPAY ==
--- OUTSIDE RECORDS SUMMARY | 2024-09-29 09:06 | XMS_ITS | Continuity of Care Document ---
Author Organization [facility] Address [address] [place] [address] Phone Care Team Providers Care Final Inspector Shuttle Name Role Phone Troy Hurt MD Unavailable [...] Diagnoses Date Provider Providers Copied on Encounter [facility], [address], [place], [place], [id number], tel:[phone] CH[facility] Odalis Dizziness 4 Licha Simmons. [address], [address] [facility], [place], [address], [place]. tel: [phone] Referring Provider: Troy Green, [address], [place], [address]. tel:[phone] [facility], [address] [place] [address], [id number], [place] tel:[phone] CH[facility] Odalis DizzinessHypertens carla Heart Disease, Benign, without CHF 4 Jaja Chirinos er. [address], [address], [place], [address], [place]. tel:[phone] Referring Provider: Troy Green, [address], [place], [address]. tel:[phone] [facility] , [address] [place] [address], [id number], [place] tel:[phone] CHV Odalis Mixed HyperlipidemiaHype rtensive Heart Disease, Benign, without CHFDizziness 4 Maddisonao Troy. [address], [address], [place], [address], [place]. tel: [phone] Referring Provider: Sunny Almanzar MD, [address], [place], [address] . tel:[phone] [facility] , [address] [place] [address], [id number], [place] tel:[phone] [facility] No Information 4 Licha Simmons. [address], [address], [place], [address], [place]. tel: [phone] Referring Provider: Sunny Almanzar MD, [address], [place], [address] . tel:[phone] Family History Family Member Type Diagnosis Age At Onset Paternal Grandfather Problem (finding) Diabetes mellit Paternal Grandmother Problem (finding) stroke Payers Payer name Insurance type Covered alliance party ID Authoriza tion(s) MEDICAID [id number] Social History Type Description Quantity Date Captured [...]
== END 2024-09-29 08:53 | disposition home or self-care (01) ==
LOC: HO.US 08:52
PROVIDERS: PCP Family Medicine; Visit Provider Family Medicine
DX: R74.8 Abnormal levels of other serum enzymes (principal)
CPT/HCPCS: 76705; 76981

== ENCOUNTER → 2024-09-29 09:09 | Outpatient (BNV) | payer OTHER, SELFPAY | PROVIDERS: PCP Family Medicine; Visit Provider Radiology Diagnostic Radiology | DX: K76.0 Fatty (change of) liver, not elsewhere classified (principal); R74.8 Abnormal levels of other serum enzymes | CPT/HCPCS: 76705 ==

== ENCOUNTER 2024-10-16 09:23 | Outpatient (AMB) | payer OTHER, SELFPAY ==
--- NOTE | 2024-10-16 09:24 | AM.OFFWIN_ITS ---
Intake Vital Signs 10/16/24 09:32 10/16/24 09:51 Height 5 ft 9 in Weight 215 lb 4 oz BMI 31.8 BP 120/82 Blood Pressure Location Rt brachial Position Sitting Respiration 16 Pulse 43 L 68 Pulse Source Pulse Oximeter Auscultation Temp 97.4 F Temp Source Oral Pulse Oximetry (%) 97 Oxygen Delivery Method Simple Mask Intake Visit Reasons: ear infection (right) Intake Note: patient here c/o right ear infection and congestion and cough. Patient Tobacco Use Status: Former Tobacco user Utility Tech Required: No Allergies No Known Allergies Allergy (Verified 10/16/24 09:33) Medication List - Last Reconciled 10/16/24 by Annika Craig CNP alprazolam 2 mg (2 x 1 mg) PO DAILY 30 days buprenorphine-naloxone 8-2 mg 2 tabs sublingual DAILY 30 days fenofibrate micronized 130 mg PO DAILY 90 days metoprolol succinate ER 100 mg PO DAILY Do you need a note to return to daycare/school/sports/work: No HPI HPI Comments History of Present Illness Details 44-year-old male presents with complaint s of right ear pain which started today. He has had productive cough with yellow phelm for the past 1 month. He was treated for left ear infection with augmentin about a month ago. He took Ibuprofen this morning. He has been taking guaifenesin almost daily for his cough without improvement. He denies sore throat, fever, chills, body aches, fatigue, or weakness. No sick contact. He had a negative home covid test twice. [facility] Medical History (Updated 10/16/24 @ 09:49 by Annika Craig CNP) Family history of bicuspid aortic valve Hypertension Surgical History History of surgery on arm Family History Mother HTN (hypertension) Father Liver cancer Stroke Prostate cancer Sister No problems noted. 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 Current occupational exposures/hazards: No Cognitive needs: No Hearing needs: No Vision needs: No Review of Systems Const Details: Denies chills, Denies fatigue, Denies fever(s), Denies headache(s) and Denies weakness Cardiac Denies chest pain, Denies claudication, Denies leg edema, Denies lightheadedness, Denies palpitations, Denies dyspnea, Denies dyspnea on exertion, Denies orthopnea and Denies other (Loss of consciousness) Resp Reports cough, Denies excessive phlegm production, Denies dyspnea, Denies dyspnea on exertion, Denies snoring and Denies wheezing ENT Reports as per HPI Physical Exam Vital Signs: Last Vital Signs Temp 97.4 F 10/16/24 09:32 Pulse 43 L 10/16/24 09:32 Resp 16 10/16/24 09:32 Pulse Ox 97 10/16/24 09:32 Oxygen Delivery Method Simple Mask 10/16/24 09:32 BMI result Body Mass Index 31.8 Const Other: General: comfortable and no acute distress Orientation/consciousness: patient oriented x3 Chest Chest palpation & inspection: normal inspection of the chest Resp Auscultation: clear to auscultation bilaterally Cardiac Palpation: normal PMI Heart sounds: S1 normal heart sound present, S2 normal heart sound present, no gallops, no murmur, no rubs ENT Head is normocephalic Right TM with moderate erythema and effusion, no bulging or exudates. Left TM is normal Nasal turbinates and oropharynx are pink and moist Sinuses are nontender with palpation No auricular or cervical lymphadenopathy Assessment & Plan Assessment & Plan (1) Right otitis media with effusion: Code(s): H65.91 - Unspecified nonsuppurative otitis media, right ear Plan: Right TM with moderate erythema and effusion, no bulging or exudates. Advised to take Augmentin as prescribed. May take Tylenol ibuprofen as needed for pain or discomfort. Follow-up with worsening or new symptoms. Verbalized understanding and agreed with the plan. (2) Viral upper respiratory illness: Code(s): J06.9 - Acute upper respiratory infection, unspecified Plan: Likely viral illness though possibly allergies Viral illness There is no antibiotic medication for viruses.? They must run their course.? Most average 5-7 days but 7-10 days is not uncommon and up to 14 days is still possible.? A cough is often the last symptom to resolve and this can last for weeks in some cases. Rest Hydrate well -? Drink plenty of fluids.? Especially water. Tylenol or ibuprofen for muscle aches, headache, fever/discomfort Zyrtec as prescribed Cannot rule out COVID-19/RSV/Flu infection Nasal swab acquired and will be sent to the lab Return for new or worsening symptoms Verbalized understanding and agreed with treatment plan. Orders: Orders SARS-CoV2/FLU/RSV Today R09.89 - Other specified symptoms and signs involving the circulatory and respiratory systems Medications: New amoxicillin-pot clavulanate 500-125 mg (Augmentin) 1 tab PO Q12H 7 days 14 tabs 0RF cetirizine 10 mg PO DAILY 30 days 30 tabs 0RF Coding Level of Care Code Est Pt Level 3 (74485) Diagnoses Right otitis media with effusion H65.91 Viral upper respiratory illness J06.9
--- OUTSIDE RECORDS SUMMARY | 2024-10-16 09:27 | XMS_ITS | Continuity of Care Document ---
Author Organization [facility] Address [address] [place] [address] Phone Care Team Providers Care Quality Control Manager Name Role Phone Troy Hurt MD Unavailable [...] Diagnoses Date Provider Providers Copied on Encounter [facility], [address], [place], [place], [id number], tel:[phone] [facility] Odalis Dizziness 4 Licha Simmons. [address], [address] [facility], [place], [address], [place]. tel: [phone] Referring Provider: Troy Green, [address], [place], [address]. tel:[phone] [facility], [address] [place] [address], [id number], [place] tel:[phone] [facility] Odalis DizzinessHypertens carla Heart Disease, Benign, without CHF 4 Jaja Chirinos er. [address], [address], [place], [address], [place]. tel: [phone] Referring Provider: Troy Green, [address], [place], [address]. tel:[phone] [facility] , [address] [place] [address], [id number], [place] tel:[phone] [facility] Odalis Mixed HyperlipidemiaHype rtensive Heart Disease, Benign, without CHFDizziness 4 Maddisonao Troy. [address], [address], [place], [address], [place]. tel: [phone] Referring Provider: Sunny Almanzar MD, [address], [place], [address] . tel:[phone] [facility] , [address] [place] [address], [id number], [place] tel:[phone] [facility] No Information 4 Licha Simmons. [address], [address], [place], [address], [place]. tel: [phone] Referring Provider: Sunny Almanzar MD, [address], [place], [address] . tel:[phone] Family History Family Member Type Diagnosis Age At Onset Paternal Grandfather Problem (finding) Diabetes mellit Paternal Grandmother Problem (finding) stroke Payers Payer name Insurance type Covered libertarian ID Authoriza tion(s) MEDICAID [id number] Social History Type Description Quantity Date Captured [...]
[2024-10-16 09:32] VITALS: BP 120/82; PULSE 43; RESP 16; TEMP 36.3; O2SAT 97; BMI 31.8
[2024-10-16 09:51] VITALS: PULSE 68
== END 2024-10-16 09:47 | disposition home or self-care (01) ==
LOC: HO.HMCWIW 09:24
PROVIDERS: PCP Family Medicine; Visit Provider Nurse Practitioner Family
DX: H65.91 Unspecified nonsuppurative otitis media, right ear (principal); J06.9 Acute upper respiratory infection, unspecified

== ENCOUNTER 2024-10-16 09:23 | Outpatient (REF) | payer OTHER, SELFPAY ==
--- OUTSIDE RECORDS SUMMARY | 2024-10-16 09:52 | XMS_ITS | Continuity of Care Document ---
Author Organization [facility] Address [address] [place] [address] Phone Care Team Providers Care Central Supply Technician Supervisor Name Role Phone Troy Hurt MD Unavailable [...] Diagnoses Date Provider Providers Copied on Encounter [facility], [address], [place], [place], [id number], tel:[phone] CH[facility] Odalis Dizziness 4 Licha Simmons. [address], Suite [facility], [place], [address], [place]. tel: [phone] Referring Provider: Troy Green, [address], [place], [address]. tel:[phone] [facility], [address] [place] [address], [id number], [place] tel:[phone] [facility] Odalis DizzinessHypertens carla Heart Disease, Benign, without CHF 4 Jaja Chirinos er. [address], [address], [place], [address], [place]. tel:[phone] Referring Provider: Troy Green, [address], [place], [address]. tel:[phone] [facility] , [address] [place] [address], [id number], [place] tel:[phone] [facility] Odalis Mixed HyperlipidemiaHype rtensive Heart Disease, Benign, without CHFDizziness 4 Maddisonao Troy. [address], [address], [place], [address], [place]. tel: [phone] Referring Provider: Sunny Almanzar MD, [address], [place], [address] . tel:[phone] [facility] , [address] [place] [address], [id number], [place] tel:[phone] [facility] No Information 4 Licha Simmons. [address], [address], [place], [address], [place]. tel: [phone] Referring Provider: Sunny Almanzar MD, [address], [place], [address] . tel:[phone] Family History Family Member Type Diagnosis Age At Onset Paternal Grandfather Problem (finding) Diabetes mellit Paternal Grandmother Problem (finding) stroke Payers Payer name Insurance type Covered alliance party ID Authoriza tion(s) MEDICAID [id number] Social History Type Description Quantity Date Captured [...]
[2024-10-16 12:33] LABS: Influenza A PCR NEGATIVE (Negative); Influenza B PCR NEGATIVE (Negative); Resp Syncy Virus RNA Qual PCR NEGATIVE (Negative); SARS COV2 PCR INHOUSE NEGATIVE (Negative)
== END 2024-10-16 09:24 | disposition home or self-care (01) ==
LOC: HO.LAB 09:23
PROVIDERS: PCP Family Medicine; Visit Provider Nurse Practitioner Family
DX: J06.9 Acute upper respiratory infection, unspecified (principal)
CPT/HCPCS: 0241U

== ENCOUNTER 2024-12-04 08:08 | Outpatient (REF) | payer OTHER, SELFPAY ==
--- OUTSIDE RECORDS SUMMARY | 2024-12-04 08:12 | XMS_ITS | Continuity of Care Document ---
Author Organization [facility] Address [address] [place] [address] Phone Care Team Providers Care Miniature Train Driver Name Role Phone Troy Hurt MD Unavailable Unavailable Allergies, Adverse Reactions, Alerts Substance Reaction Status Criticality No Known Drug Allergies Active No I nformation Medications Medication Instructions Dosage Effective Dates (start - stop) Status Comments atorvastatin 20 mg tablet take 1 tablet by oral route every day at HS. 20 MG - Active Xanax 2 mg tablet take 1 Tablet by ORA L route 3 times every day 2 MG - Active Zanaflex 4 mg capsule take 1 Capsule by ORAL route 3 times PRN - Active metoprolol tartrate 50 mg tablet take 1 tablet by ORAL route 2 times every day with meals 50 MG - Active Procedures Procedure Date ECG MONITOR/RECORD, 24 HRS ECG MONITOR/REVIEW, 24 HRS TTE W/DOPPLER, COMPLETE CARDIOVASCULAR STRESS TEST CARDIOVASCULAR STRESS TEST Advance Directives Directive Yes / No Effective Date File Name No Information Encounters Encounter Description Practice Location Reason(s) For Visit Diagnoses Date Provider Providers Copied on Encounter [facility], [address], [place], [place], [id number], tel:[phone] CH[facility] Odalis Dizziness 4 Licha Simmons. [address], [address] [facility], [place], [address], [place]. tel: [phone] Referring Provider: Troy Green, [address], [place], [address]. tel:[phone] [facility], [address] [place] [address], [id number], [place] tel:[phone] [facility] Odalis DizzinessHypertens carla Heart Disease, Benign, without CHF 4 Jaja Chirinos er. [address], [address], [place], [address], [place]. tel:[phone] Referring Provider: Troy Green, [address], [place], [address]. tel:[phone] [facility] , [address] [place] [address], [id number], [place] tel:[phone] CHMaryellen Jacobo Mixed HyperlipidemiaHype rtensive Heart Disease, Benign, without CHFDizziness 4 Maddisonao Troy. [address], [address], [place], [address], [place]. tel: [phone] Referring Provider: Sunny Almanzar MD, [address], [place], [address] . tel:[phone] [facility] , [address] [place] [address], [id number], [place] tel:[phone] [facility] No Information 4 Licha Simmons. [address], [address], [place], [address], [place]. tel: [phone] Referring Provider: Sunny Almanzar MD, [address], [place], [address] . tel:[phone] Family History Family Member Type Diagnosis Age At Onset Paternal Grandmother Problem (finding) stroke Paternal Grandfather Problem (finding) Diabetes mellit us Payers Payer name Insurance type Covered republican ID Authoriza tion(s) MEDICAID [id number] Social History Type Description Quantity Date Captured [...]
--- OUTSIDE RECORDS SUMMARY | 2024-12-04 08:12 | XMS_ITS | Patient Health Record ---
Author Organization [facility] Billing Info Address [address] [place] [address] Support Name Relationship Address Phone Alan Pickett Guarantor Unknown [phone] Reason For Referral No Information Plan Of Treatment No Information Insurance Providers Payer Name Payer Address Payer Phone Subscriber Number Group Number Insured Name Patient Relationship to Insured Coverage Start Date Coverage End Date [place] [address] [place], [place] [id number] Alan Pickett Self - patient is the insured 4 [phone]
[2024-12-04 09:20] LABS: Albumin Level 4.4 g/dL (3.5-5.0); Alkaline Phosphatase 39 U/L (39-117); Anion Gap 11 (12-20); Aspartate Amino Transferase 30 U/L (5-37); Bilirubin Total 0.4 mg/dL (0.0-1.0); Blood Urea Nitrogen 16 mg/dL (9-16); Calcium 9.1 mg/dL (8.4-10.2); Carbon Dioxide 27 mmol/L (22-29); Chloride 108 mmol/L (96-108); Cholesterol 281 mg/dL (<200); Estimated Glomerular Filt Rate > 60; Glucose Fasting 112 mg/dL (60-99); HDL Cholesterol 32 mg/dL (>40); LDL Cholesterol Calculated 181 mg/dL (<100); Potassium 4.3 mmol/L (3.3-5.1); Sodium 142 mmol/L (135-145); Total Protein 7.6 g/dL (6.5-8.0); Triglycerides 341 mg/dL (<150)
[2024-12-04 09:31] LABS: Alanine Aminotransferase 44 U/L (0-40)
== END 2024-12-04 08:09 | disposition home or self-care (01) ==
LOC: HO.LAB 08:08
PROVIDERS: PCP Family Medicine; Visit Provider Family Medicine
DX: Z00.00 Encounter for general adult medical examination without abnormal findings (principal); E78.6 Lipoprotein deficiency; R74.8 Abnormal levels of other serum enzymes
CPT/HCPCS: 36415; 80053; 80061

== ENCOUNTER 2024-12-11 15:33 | Outpatient (AMB) | payer OTHER, SELFPAY ==
--- NOTE | 2024-12-11 15:53 | A.OFFPC_ITS ---
Vital Signs 12/11/24 15:58 Height 5 ft 9 in Weight 222 lb BMI 32.8 BP 120/76 Blood Pressure Location Lt brachial Position Sitting Respiration 14 Pulse 65 Pulse Source Pulse Oximeter Temp 98.0 F Temp Source Oral Pulse Oximetry (%) 98 Oxygen Delivery Method Room Air Intake Visit Reasons: f/u mixed HLD, ultrasound Intake Note: follow up labs and ultrasound Community Health Education Coordinator Required: No Allergies No Known Allergies Allergy (Verified 12/11/24 15:56) Medication List - Last Reconciled 12/11/24 by Phoenix Lal MD alprazolam 2 mg (2 x 1 mg) PO DAILY 30 days buprenorphine-naloxone 8-2 mg 2 tabs sublingual DAILY 30 days cetirizine 10 mg PO DAILY 30 days evolocumab (Repatha SureClick) 140 mg subcut Q2W 28 days metoprolol succinate ER 100 mg PO DAILY Tobacco use date assessed: 06/12/24 Dental Screening Dental Screen Date: 12/20/23 HPI f/u mixed HLD, ultrasound HPI Details 44 y/o male presents to f/u mixed HLD, u ltrasound. Labs drawn 12/04/24. Reviewed labs with pt. Elevated fasting glucose of 112. Elevated ALT of 44. AST 30. Triglycerides 341. TC 281. LDL 181. HDL low at 32. Had not been able to get Repatha to get through. Blood pressure today 120/76, 65p. He is on metoprolol 100mg daily. Has an appt. with Cardiology in December. Liver elastography 09/29/24 shows: Pattern megaly and hepatic steatosis. The median shear wave velocity is 1.80 m/s, corresponding to a median liver stiffness of 9.87 kPa. The IQR/median value is 0.07. This is indicative of a quality data set. Findings are indicative of a high elastography value suggestive of advanced chronic liver disease. HPI Comments History of Present Illness Details Documentation assistance for Phoenix Lal MD, was provided by Ramon Strauss,? Fiber Heel Piece Shaper on 12/11/2024 at 4:16 PM EST. I, Dr. Lal, have read, observed, and verified documentation. ?? [facility] Medical History (Updated 10/16/24 @ 09:49 by Annika Craig CNP) Family history of bicuspid aortic valve Hypertension Surgical History History of surgery on arm Family History Mother HTN (hypertension) Father Liver cancer Stroke Prostate cancer Sister No problems noted. 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 1. Little interest or pleasure in doing things: several days 2. Feeling down, depressed, or hopeless: not at all 3. Trouble falling or staying asleep, or sleeping too much: not at all 4. Feeling tired or having little energy: several days 5. Poor appetite or overeating: not at all 6. Feeling bad about yourself - or that you are a failure or have let yourself or your family down: not at all 7. Trouble concentrating on things, such as reading the newspaper or watching television: not at all 8. Moving or speaking so slowly that other people could have noticed. Or the opposite - being so fidgety or restless that you have been moving around a lot more than usual: not at all 9. Thoughts that you would be better off or of hurting yourself in some way: not at all Total score: 2 Source: Developed by Drs. Parth Gomez, Juliet Nguyen, Juan Gonzalez and colleagues, with an educational aj from [employer]. Thrive Questionnaire Date Thrive assessed: 12/04/24 I am a: Patient What is your living situation today?: I have a steady place to live Within the past 12 months, did the food you bought not last and you didn't have the money to get more?: Never true Within the past 12 months, did you worry whether your food would run out before you got money to buy more?: Never true Do you have trouble paying for medicines?: No Do you have trouble getting transportation to medical appointments?: No Do you have trouble paying your heating and electricity bill?: No Do you have trouble taking care of your child, family member or friend?: No Do you have trouble with day-to-day activities such as bathing, preparing meals, shopping, managing finances, etc.?: No Are you currently unemployed and looking for a job?: No Are you interested in more education?: No Please select the resources that you would like help with: None Currently or been in a relationship where the following occur: No concerns reported THRIVE Score: 0 AUDIT C Alcohol Use Questionnaire (AUDIT-C) 1. How often do you have a drink containing alcohol?: 2-3 times a week 2. How many drinks containing alcohol do you have on a typical day when you are drinking?: 1 or 2 3. How often do you have six or more drinks on one occasion?: Never Total Score: 3 KELLY-7 AMB Questionnaire KELLY-7 Date KELLY - 7 assessed: 12/20/23 Feeling nervous, anxious, or on edge: 1 = Several days Not being able to stop or control worryin = Several days Worrying too much about different things: 1 = Several days Trouble relaxin = Several days Being so restless that it is hard to sit still: 0 = Not at all Becoming easily annoyed or irritable: 1 = Several days Feeling afraid as if something awful might happen: 0 = Not at all Total KELLY-7 score (0-4 normal; 5-9 mild; 10-14 moderate; 15-21 severe): 5 Source: Developed by Drs. Parth Gomez, Juliet Nguyen, Juan Gonzalez and colleagues, with an educational aj from [employer]. Review of Systems Const Denies chills, Denies fatigue, Denies fever(s), Denies headache(s) and Denies weakness ENT Denies dizziness and Denies headache(s) Card Denies dyspnea Resp Denies cough, Denies dyspnea, Denies wheezing and Denies other (shortness of breath) Musc Denies numbness and Denies tingling Neuro Denies dizziness, Denies headache(s), Denies numbness, Denies tingling and Denies weakness Psych Denies anxiety and Denies depression Endo Denies fatigue Aller/Immun Denies wheezing Physical exam (Primary Care) Vital Signs: Last Vital Signs Temp 98.0 F 12/11/24 15:58 Pulse 65 12/11/24 15:58 Resp 14 12/11/24 15:58 BP 120/76 12/11/24 15:58 Pulse Ox 98 12/11/24 15:58 Oxygen Delivery Method Room Air 12/11/24 15:58 BMI result Body Mass Index 32.8 Tobacco/Smoking Status: Tobacco use Status Tobacco use date assessed 06/12/24 12/11/24 15:55 Patient Tobacco Use Status Former Tobacco user 12/11/24 15:55 e-Cigarette/Vaping Use Currently Using 12/11/24 15:55 PHQ-9: PHQ-9 Score PHQ-9: Total score 2 12/11/24 16:07 Thrive Assessment: Date of Thrive Assessment Date Thrive assessed 12/04/24 12/11/24 15:55 Currently or been in a relationship where the following occur: No concerns reported Const General: well developed; No acute distress Nutritional Appearance: well nourished Orientation/consciousness: patient oriented x3 [facility] Head: Yes normocephalic and Yes atraumatic Eyes General: appearance normal, both eyes and all related structures Pupils: Equal, round and reactive pupils present EOM: EOMs intact bilaterally Resp Effort & Inspection: normal respiratory effort Auscultation: clear to auscultation bilaterally Cardio Rate: regular rate Rhythm: regular rhythm Heart sounds: S1 normal heart sound present, S2 normal heart sound present, no gallops, no murmurs and no rubs Neuro General: patient oriented x3 and gait normal Cranial nerves: Yes Equal, round and reactive pupils present Psych Affect: normal affect Coding Level of Care Code Est Pt Level 4 (92252) Diagnoses Mixed hyperlipidemia E78.2 Pre-diabetes R73.03 Essential hypertension I10 Elevated liver enzymes R74.8 Assessment & Plan Assessment & Plan (1) Mixed hyperlipidemia: Code(s): E78.2 - Mixed hyperlipidemia Category: Medical Plan: Mixed?hyperlipidemia?with?very?high?triglycerides. He?had?been?on?fenofibrate?in?the?past. Had?tried?numerous?statin?medications Had?also?recently?tried?to?prescribed?Repatha?but?his?insurance?declined?this He?has?an?upcoming?appointment?with?cardiology (2) Pre-diabetes: Code(s): R73.03 - Prediabetes Category: Medical Plan: Blood?sugars?are?elevated?and?A1c?in?pre?diabetes?range. Given?other?comorbidities will?start?metformin. Decreasing?his?blood?sugars?may?also?help?with?triglycerides?levels (3) Essential hypertension: Code(s): I10 - Essential (primary) hypertension Category: Medical Plan: Blood?pressure?is?controlled.??Goal?is?less?than?40/90 Continue?metoprolol?as?prescribed (4) Elevated liver enzymes: Code(s): R74.8 - Abnormal levels of other serum enzymes Category: Medical Plan: Elevated?liver?enzymes?and?his?ultrasound?shows?hepatic?steatosis?as?well?as increase?stiffness?compensated?advanced?chronic?liver?disease No?masses Work?on?diet?and?exercise?for?weight?loss Hydrate?well Will?refer?to?Gastroenterology Orders: Referrals Gastroenterology Referral R74.8 - Abnormal levels of other serum enzymes Medications: New metformin 250 mg (1/2 x 500 mg) PO QPM 30 days 15 tabs 3RF
[2024-12-11 15:58] VITALS: BP 120/76; PULSE 65; RESP 14; TEMP 36.7; O2SAT 98; BMI 32.8
--- OUTSIDE RECORDS SUMMARY | 2024-12-11 18:54 | XMS_ITS | Continuity of Care Document ---
Author Organization [facility] Address [address] [place] [address] Phone Care Team Providers Care Coin Purse Framer Name Role Phone Troy Hurt MD Unavailable [...] Encounter [facility], [address], [place], [place], [id number], tel:[phone] CH[facility] Odlais Dizziness 4 Licha Simmons. [address], [address] [facility], [place], [address], [place]. tel: [phone] Referring Provider: Troy Green, [address], [place], [address]. tel:[phone] [facility], [address] [place] [address], [id number], [place] tel:[phone] CHV Odalis DizzinessHypertens carla Heart Disease, Benign, without CHF 4 Jaja Chirinos er. [address], [address], [place], [address], [place]. tel:[phone] Referring Provider: Troy Green, [address], [place], [address]. tel:[phone] [facility] , [address] [place] [address], [id number], [place] tel:[phone] CHV Odalis Mixed HyperlipidemiaHype rtensive Heart Disease, Benign, without CHFDizziness 4 Maddisonao Troy. [address], [address], [place], [address], [place]. tel: [phone] Referring Provider: Sunny Almanzar MD, [address], [place], [address] . tel:[phone] [facility] , [address] [place] [address], [id number], [place] tel:[phone] [facility] No Information 4 Licha Simmons. [address], [address], [place], [address], [place]. tel: [phone] Referring Provider: Sunny Almanzar MD, [address], [place], [address] . tel:[phone] Family History Family Member Type Diagnosis Age At Onset Paternal Grandfather Problem (finding) Diabetes mellit Paternal Grandmother Problem (finding) stroke Payers Payer name Insurance type Covered democrat ID Authoriza tion(s) MEDICAID [id number] Social History Type Description Quantity Date Captured [...]
--- OUTSIDE RECORDS SUMMARY | 2024-12-11 18:54 | XMS_ITS | Patient Health Record ---
Author Organization [facility] Billing Info Address [address] [place] [address] Support Name Relationship Address Phone Alan Pickett Guarantor Unknown [phone] Reason For Referral No Information Plan Of Treatment No Information Insurance Providers Payer Name Payer Address Payer Phone Subscriber Number Group Number Insured Name Patient Relationship to Insured Coverage Start Date Coverage End Date [place] [address] [place], [place] [id number] Alan Pickett Self - patient is the insured 4 0
== END 2024-12-11 16:26 | disposition home or self-care (01) ==
PROVIDERS: PCP Family Medicine; Visit Provider Family Medicine
DX: E78.2 Mixed hyperlipidemia (principal); R73.03 Prediabetes; I10 Essential (primary) hypertension; R74.8 Abnormal levels of other serum enzymes

== ENCOUNTER → 2024-12-11 15:33 | Outpatient (BNVA) | payer OTHER, SELFPAY | PROVIDERS: PCP Family Medicine; Visit Provider Family Medicine ==

== ENCOUNTER 2024-12-26 15:26 | Outpatient (AMB) | payer OTHER, SELFPAY ==
--- NOTE | 2024-12-26 15:26 | A.OFFVIS_ITS ---
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 He has a history of hypertension, hyperlipidemia, and obesity and was referred to our office by his PCP. Of over the last few years, the patient has struggled with his elevated cholesterol levels including high triglycerides and LDL. The patient has previously tried atorvastatin and rosuvastatin but has experienced significant side effects including myalgias and back pain. He has also tried fenofibrate but did not notice any improvement in his cholesterol levels from this. Despite these challenges, the patient reports that he has been making efforts to eat healthier and stay active though he has not noticed any change in his levels. The patient denies any exertional chest pain, shortness of breath, palpitations, dizziness, fatigue, orthopnea, PND, leg edema, presyncope or syncope. The patient does note that his blood pressures have been elevated at home. He notes that he has been compliant with his medications. [facility] Medical History Family history of bicuspid aortic valve Hypertension Surgical History History of surgery on arm Family History Mother HTN (hypertension) Father Liver cancer Stroke Prostate cancer Sister No problems noted. 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 occupational exposures/hazards: No Cognitive needs: No Hearing needs: No Vision needs: No Review of Systems Const Denies chills, Denies daytime sleepiness, Denies fatigue, Denies fever(s), Denies poor appetite, Denies snoring, Denies stops breathing during sleep, Denies weakness, Denies weight gain and Denies weight loss Eyes Denies loss of vision ENT Denies dizziness and Denies hearing loss Card Denies chest pain, Denies irregular heart rhythm, Denies claudication, Denies leg edema, Denies lightheadedness, Denies palpitations, Denies dyspnea on exertion and Denies orthopnea Resp Denies cough, Denies excessive phlegm production, Denies dyspnea on exertion, Denies snoring and Denies wheezing GI Denies abdominal pain, Denies hematochezia, Denies change in bowel habits, Denies nausea and Denies vomiting Denies dysuria and Denies urinary frequency Musc Denies arthralgias, Denies muscle weakness, Denies numbness and Denies other Skin/Breast Denies nail changes and Denies rash Neuro Denies Abnormal speech present, Denies dizziness, Denies loss of vision, Denies memory loss, Denies numbness and Denies weakness Psych Denies depression and Denies memory loss Endo Denies fatigue and Denies palpitations Kishan/Lymph Denies easy bruising Aller/Immun Denies wheezing Physical Exam Vital Signs: Last Vital Signs Pulse 68 12/26/24 15:27 BP 140/86 H 12/26/24 15:27 BMI result Body Mass Index 32.4 Const General: cooperative, healthy appearing, comfortable and no acute distress Orientation/consciousness: patient oriented x3 HEENT Head: Yes normal to inspection Neck Neck: Yes normal visual inspection, Yes trachea midline and Yes supple Chest Chest palpation & inspection: normal inspection of the chest Resp Effort & Inspection: normal respiratory effort Auscultation: clear to auscultation bilaterally, no crackles, no rales, no rhonchi and no wheezes Cardio Jugular venous distension: no JVD Palpation: normal PMI Rate: regular rate Rhythm: regular rhythm Heart sounds: S1 normal heart sound present, S2 normal heart sound present, no click, no gallops, no murmurs and no rubs Peripheral pulses: Peripheral pulses 2+ throughout GI Inspection: Yes normal to inspection Palpation (GI): Soft to palpation Auscultation: normal bowel sounds Skin General skin exam: no rashes or lesions noted Neuro General: patient oriented x3 Speech: No Abnormal speech present Extrem General: Yes normal to inspection, No no pedal edema and No calf tenderness Psych Appearance: grossly normal Mental Status: mental status grossly normal Speech and movement: Normal speech and movement present Assessment & Plan Assessment & Plan (1) Essential hypertension: Code(s): I10 - Essential (primary) hypertension Category: Medical Plan: Blood pressure today is elevated at 140/86. Patient states that his blood pressures at home are also elevated in the 140s systolic. Continue metoprolol therapy. We will also add losartan. We will bring the patient back in for a blood pressure visit with the nurse in a month. And we will check his labs periodically. Ideally, blood pressure goal less than 130/80. (2) Mixed hyperlipidemia: Code(s): E78.2 - Mixed hyperlipidemia Category: Medical Plan: With a history of hypertension, obesity, prediabetes, and a family history of cardiovascular disease concerning for coronary artery disease. In the past patient has tried atorvastatin rosuvastatin but has experienced adverse side effects of myalgias from it. Patient has also tried fenofibrate with no noticea ble effect. Given his risk factors and inability to tolerate the statins, we will initiate the treatment with Repatha and begin the prior authorization process for this medication. We will repeat labs in 3 months to assess effectiveness and monitoring lipid levels. Most recent LDL at 181, not at goal. Goal for LDL closer to 70s for the patient. Advised heart healthy diet, regular exercise, losing weight, and aggressive management of vascular risk factors. Follow-up in the office in 3 months. In the interim, patient will call us with any concerns or change in symptoms. This note was generated using voice recognition software. While every effort has been made to ensure accuracy and proper montessori preschool teacher, there may be occasional errors that could affect the content or meaning of the described symptoms. Orders: Orders Liver Panel 3 Months I10 - Essential (primary) hypertension Lipid Panel 3 Months E78.2 - Mixed hyperlipidemia Basic Metabolic Panel 3 Months E78.2 - Mixed hyperlipidemia Medications: New losartan 25 mg PO DAILY 90 tabs 2RF Refilled evolocumab (Repatha SureClick) 140 mg subcut Q2W 28 days 2 mL 3RF E78.2 - Mixed hyperlipidemia, E78.6 - Lipoprotein deficiency Coding Level of Care Code New Pt Level 4 (01817) Complex EM visit Add On G2211 Diagnoses Essential hypertension I10 Mixed hyperlipidemia E78.2 Time Spent (min) 32 Comment Time spent in reviewing the chart, test results, assessment, counseling and documentation.
[2024-12-26 15:27] VITALS: BP 140/86; PULSE 68; BMI 32.4
--- OUTSIDE RECORDS SUMMARY | 2024-12-26 16:34 | XMS_ITS | Continuity of Care Document ---
Author Organization [facility] Address [address] [place] [address] Phone Care Team Providers Care Global Lead Name Role Phone Troy Hurt MD Unavailable [...] Diagnoses Date Provider Providers Copied on Encounter [facility], [address], [place], [place], [id number], tel:[phone] CHV Odalis Dizziness 4 Licha Simmons. [address], [address] [facility], [place], [address], [place]. tel: [phone] Referring Provider: Troy Green, [address], [place], [address]. tel:[phone] [facility], [address] [place] [address], [id number], [place] tel:[phone] CHV Odalis DizzinessHypertens carla Heart Disease, Benign, without CHF 4 Jaja Chirinos er. [address], [address], [place], [address], [place]. tel:[phone] Referring Provider: Troy Green, [address], [place], [address]. tel:[phone] [facility] , [address] [place] [address], [id number], [place] tel:[phone] CHMaryellen Jacobo Mixed HyperlipidemiaHype rtensive Heart Disease, Benign, without CHFDizziness 4 Maddisonao Troy. [address], [address], [place], [address], [place]. tel: [phone] Referring Provider: Sunny Almanzar MD, [address], [place], [address] . tel:[phone] [facility] , [address] [place] [address], [id number], [place] tel:[phone] [facility] No Information 4 Licha Simmons. [address], [address], [place], [address], [place]. tel: [phone] Referring Provider: Sunny Almanzar MD, [address], [place], [address] . tel:[phone] Family History Family Member Type Diagnosis Age At Onset Paternal Grandmother Problem (finding) stroke Paternal Grandfather Problem (finding) Diabetes mellit us Payers Payer name Insurance type Covered democrat ID Authoriza tion(s) MEDICAID [id number] Social History Type Description Quantity Date Captured [...]
--- OUTSIDE RECORDS SUMMARY | 2024-12-26 16:34 | XMS_ITS | Patient Health Record ---
Author Organization [facility] Billing Info Address [address] [place] [address] Support Name Relationship Address Phone Alan Pickett Guarantor Unknown [phone] Reason For Referral No Information Plan Of Treatment No Information Insurance Providers Payer Name Payer Address Payer Phone Subscriber Number Group Number Insured Name Patient Relationship to Insured Coverage Start Date Coverage End Date [place] [address] [place], [place] [id number] [phone] [id number] Alan Pickett Self - patient is the insured 4 0
--- OUTSIDE RECORDS SUMMARY | 2024-12-26 16:36 | XMS_ITS | Continuity of Care Document ---
Author Organization [facility] Address [address] [place] [address] Phone Care Team Providers Care Trauma Doctor Name Role Phone Troy Hurt MD Unavailable [...] Date Provider Providers Copied on Encounter [facility], [address], [place], [place], [id number], tel:[phone] CHV Odalis Dizziness 4 Licha Simmons. [address], Suite [facility], [place], [address], [place]. tel: [phone] Referring Provider: Troy Green, [address], [place], [address]. tel:[phone] [facility], [address] [place] [address], [id number], [place] tel:[phone] CHV Odalis DizzinessHypertens carla Heart Disease, Benign, without CHF 4 Jaja Chirinos er. [address], [address], [place], [address], [place]. tel:[phone] Referring Provider: Troy Green, [address], [place], [address]. tel:[phone] [facility] , [address] [place] [address], [id number], [place] tel:[phone] CHMaryellen Jacobo Mixed HyperlipidemiaHype rtensive Heart Disease, Benign, without CHFDizziness 4 Maddisonao Troy. [address], [address], [place], [address], [place]. tel: [phone] Referring Provider: Sunny Almanzar MD, [address], [place], [address] . tel:[phone] [facility] , [address] [place] [address], [id number], [place] tel:[phone] [facility] No Information 4 Licha Simmons. [address], [address], [place], [address], [place]. tel: [phone] Referring Provider: Sunny Almanzar MD, [address], [place], [address] . tel:[phone] Family History Family Member Type Diagnosis Age At Onset Paternal Grandmother Problem (finding) stroke Paternal Grandfather Problem (finding) Diabetes mellit us Payers Payer name Insurance type Covered democrat ID Authoriza tion(s) MEDICAID [id number] Social History Type Description Quantity Date Captured [...]
== END 2024-12-26 16:04 | disposition home or self-care (01) ==
PROVIDERS: PCP Family Medicine
DX: I10 Essential (primary) hypertension (principal); E78.2 Mixed hyperlipidemia
CPT/HCPCS: 99204

== ENCOUNTER 2025-01-07 07:32 | Outpatient (REF) | payer OTHER, SELFPAY ==
[2025-01-07 08:41] LABS: Albumin Level 4.8 g/dL (3.5-5.0); Alkaline Phosphatase 41 U/L (39-117); Aspartate Amino Transferase 27 U/L (5-37); Bilirubin Direct 0.1 mg/dL (0.0-0.5); Bilirubin Total 0.4 mg/dL (0.0-1.0); Cholesterol 283 mg/dL (<200); HDL Cholesterol 34 mg/dL (>40); Total Protein 7.7 g/dL (6.5-8.0); Triglycerides 440 mg/dL (<150)
[2025-01-07 08:59] LABS: TSH reflex Free T4 3.18 uIU/mL (0.32-4.0)
[2025-01-07 10:18] LABS: Alanine Aminotransferase 33 U/L (0-40)
[2025-01-08 16:38] LABS: CRP High Sensitivity 2.4 mg/L
[2025-01-11 06:24] LABS: Lipoprotein A 15 nmol/L (<75)
[2025-01-11 14:37] LABS: Apolipoprotein B 181 mg/dL (<90)
== END 2025-01-07 07:33 | disposition home or self-care (01) ==
LOC: HO.LAB 07:32
PROVIDERS: PCP Family Medicine
DX: E78.2 Mixed hyperlipidemia (principal); I10 Essential (primary) hypertension
CPT/HCPCS: 36415; 80061; 80076; 82172; 83695; 84443; 86141

== ENCOUNTER 2025-01-23 15:09 | Outpatient (AMB) | payer OTHER, SELFPAY ==
--- OUTSIDE RECORDS SUMMARY | 2025-01-23 15:12 | XMS_ITS | Continuity of Care Document ---
Author Organization [facility] Address [address] [place] [address] Phone Care Team Providers Care Packager Machine Name Role Phone Troy Hurt MD Unavailable [...] [facility], [address], [place], [place], [id number], tel:[phone] CHV Odalis Dizziness 4 Licha Simmons. [address], Suite [facility], [place], [address], [place]. tel: [phone] Referring Provider: Troy Green, [address], [place], [address]. tel:[phone] [facility], [address] [place] [address], [id number], [place] tel:[phone] CHV Odalis DizzinessHypertens carla Heart Disease, Benign, without CHF 4 Jaja Chirinos er. [address], [address], [place], [address], [place]. tel:[phone] Referring Provider: Troy Green, [address], [place], [address]. tel:[phone] [facility] , [address] [place] [address], [id number], [place] tel:[phone] CHV Odalis Mixed HyperlipidemiaHype rtensive Heart Disease, Benign, without CHFDizziness 4 Maddisonao Troy. [address], [address], [place], [address], [place]. tel: [phone] Referring Provider: Sunny Almanzar MD, [address], [place], [address] . tel:[phone] [facility] , [address] [place] [address], [id number], [place] tel:[phone] [facility] No Information 4 Licha Simmons. [address], [address], [place], [address], [place]. tel: [phone] Referring Provider: Sunny Almanzar MD, [address], [place], [address] . tel:[phone] Family History Family Member Type Diagnosis Age At Onset Paternal Grandfather Problem (finding) Diabetes mellit Paternal Grandmother Problem (finding) stroke Payers Payer name Insurance type Covered constitution party ID Authoriza tion(s) MEDICAID [id number] Social History Type Description Quantity Date Captured [...]
--- OUTSIDE RECORDS SUMMARY | 2025-01-23 15:12 | XMS_ITS | Patient Health Record ---
Author Organization [facility] Billing Info Address [address] [place] [address] Support Name Relationship Address Phone Alan Pickett Guarantor Unknown [phone] Reason For Referral No Information Plan Of Treatment No Information Insurance Providers Payer Name Payer Address Payer Phone Subscriber Number Group Number Insured Name Patient Relationship to Insured Coverage Start Date Coverage End Date [place] [address] [place], [place] [id number] [phone] [id number] Alan Pickett Self - patient is the insured 4 0
--- NOTE | 2025-01-23 15:33 | MHC.OFFVIS ---
Vital Signs 01/23/25 15:39 Height 5 ft 9 in Weight 217 lb BMI 32.0 Pulse 63 Pulse Source Pulse Oximeter Pulse Oximetry (%) 98 Oxygen Delivery Method Room Air Intake Visit Reasons: MAT Visit Allergies No Known Allergies Allergy (Verified 01/23/25 15:40) HPI HPI MAT Visit: Details: He is doing well He is due for Suboxone PFSH Medical History Family history of bicuspid aortic valve Hypertension Surgical History History of surgery on arm Family History Mother HTN (hypertension) Father Liver cancer Stroke Prostate cancer Sister No problems noted. 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 occupational exposures/hazards: No Cognitive needs: No Hearing needs: No Vision needs: No Review of Systems Const All systems reviewed & are unremarkable except as noted in HPI and below Physical Exam Vital Signs: Last Vital Signs Pulse 63 01/23/25 15:39 Pulse Ox 98 01/23/25 15:39 Oxygen Delivery Method Room Air 01/23/25 15:39 BMI result Body Mass Index 32.0 Const General: cooperative Results AMB 14 Panel Urine Drug Screen Urine Marijuana (THC) Negative Last Edit by Kiran Acosta CMA on 01/23/25 15:48 Urine Cocaine Negative Last Edit by Kiran Acosta CMA on 01/23/25 15:48 Urine Morphine Negative Last Edit by Kiran Acosta CMA on 01/23/25 15:48 Urine Methamphetamine Negative Last Edit by Kiran Acosta CMA on 01/23/25 15:48 Urine Amphetamine Negative Last Edit by Kiran Acosta CMA on 01/23/25 15:48 Urine Benzodiazepine Positive Last Edit by Kiran Acosta CMA on 01/23/25 15:48 Urine Barbiturates Negative Last Edit by Kiran Acosta CMA on 01/23/25 15:48 Urine Methadone Negative Last Edit by Kiran Acosta CMA on 01/23/25 15:48 Urine Buprenorphine Positive Last Edit by Kiran Acosta CMA on 01/23/25 15:48 Urine Tricyclic Antidepressant Negative Last Edit by Kiran Acosta CMA on 01/23/25 15:48 Urine MDMA Negative Last Edit by Kiran Acosta CMA on 01/23/25 15:48 Urine Oxycodone Negative Last Edit by Kiran Acosta CMA on 01/23/25 15:48 Urine Phencyclidine Negative Last Edit by Kiran Acosta CMA on 01/23/25 15:48 Urine Propoxyphene Negative Last Edit by Kiran Acosta CMA on 01/23/25 15:48 Results Reviewed Results Reviewed: Laboratory Last Values POC Urine Buprenorphine Positive 01/23/25 15:47 POC Urine Morphine Negative 01/23/25 15:47 POC Urine Oxycodone Negative 01/23/25 15:47 POC Urine Methadone Negative 01/23/25 15:47 POC Urine Propoxyphene Negative 01/23/25 15:47 POC Urine Barbiturates Negative 01/23/25 15:47 POC U Tricyclic Antidpr Negative 01/23/25 15:47 POC Urine PCP Negative 01/23/25 15:47 POC Ur Amphetamines Negative 01/23/25 15:47 POC Ur Methamphetamine Negative 01/23/25 15:47 POC Urine MDMA Negative 01/23/25 15:47 POC Ur Benzodiazepine Positive 01/23/25 15:47 POC Urine Cocaine Negative 01/23/25 15:47 POC Ur Marijuana (THC) Negative 01/23/25 15:47 Assessment & Plan Assessment & Plan (1) Opioid use disorder, severe, in sustained remission: Comment: Doing well Code(s): F11.21 - Opioid dependence, in remission Category: Medical Plan: Script Orders: Orders AMB 14 Panel Urine Drug Screen Today Z51.81 - Encounter for therapeutic drug level monitoring Medications: New buprenorphine-naloxone 8-2 mg (Suboxone) place 1 film on inside of (each) cheek 2 film sublingual DAILY 60 ea 2RF 30 days Coding Level of Care Code Est Pt Level 3 (31362) Diagnoses Opioid use disorder, severe, in sustained remission F11.21
[2025-01-23 15:39] VITALS: PULSE 63; O2SAT 98; BMI 32.0
== END 2025-01-23 16:08 | disposition home or self-care (01) ==
LOC: HO.HCC 15:10
PROVIDERS: PCP Family Medicine; Visit Provider Internal Medicine
DX: F11.21 Opioid dependence, in remission (principal); Z51.81 Encounter for therapeutic drug level monitoring
CPT/HCPCS: 99213

== ENCOUNTER → 2025-01-23 15:09 | Outpatient (BNVA) | payer OTHER, SELFPAY | PROVIDERS: PCP Family Medicine; Visit Provider Internal Medicine | DX: Z51.81 Encounter for therapeutic drug level monitoring (principal); F11.21 Opioid dependence, in remission | CPT/HCPCS: 80307 ==

== ENCOUNTER 2025-03-11 15:21 | Outpatient (AMB) | payer OTHER, SELFPAY ==
--- NOTE | 2025-03-11 15:33 | MHC.PC.OV ---
Vital Signs 03/11/25 15:43 Height 5 ft 9 in Weight 213 lb 8 oz BMI 31.5 BP 119/78 Blood Pressure Location Lt brachial Position Sitting Respiration 16 Pulse 60 Pulse Source Pulse Oximeter Temp 97.4 F Temp Source Oral Pulse Oximetry (%) 96 Oxygen Delivery Method Room Air Intake Visit Reasons: f/u HLD, pre-diabetes Intake Note: patient is scheduled for pre-diabetes HLD follow-up. Allergies No Known Allergies Allergy (Verified 03/11/25 15:38) Medication List - Last Reconciled 03/11/25 by Phoenix Lal MD alprazolam 2 mg (2 x 1 mg) PO DAILY 30 days buprenorphine-naloxone 8-2 mg (Suboxone) 2 film sublingual DAILY 30 days buprenorphine-naloxone 8-2 mg 2 tabs sublingual DAILY 30 days ezetimibe 10 mg PO DAILY losartan 25 mg PO DAILY metformin 250 mg (1/2 x 500 mg) PO QPM 30 days metoprolol succinate ER 100 mg PO DAILY omega-3 acid ethyl esters 2 caps PO BID Tobacco use date assessed: 03/11/25 Dental Screening Dental Screen Date: 12/20/23 Did you have a dental visit in the last 12 months?: Yes Did you have a dental problem in the last 6 months where you did not have access to dental care?: No Was dental information given to patient?: No HPI f/u HLD, pre-diabetes HPI Details 44 y/o male presents to f/u HLD, pre-diabetes. Labs drawn 01/07/25. Reviewed labs with pt. TC 283. LDL 181 in November. HDL low at 34. A1c today 5.7%. Pt reports mid back pain. [facility] Medical History Family history of bicuspid aortic valve Hypertension Surgical History History of surgery on arm Family History Mother HTN (hypertension) Father Liver cancer Stroke Prostate cancer Sister No problems noted. 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 occupational exposures/hazards: No Cognitive needs: No Hearing needs: No Vision needs: No Questionnaire Thrive Questionnaire Date Thrive assessed: 03/11/25 I am a: Patient What is your living situation today?: I have a steady place to live Within the past 12 months, did the food you bought not last and you didn't have the money to get more?: Never true Within the past 12 months, did you worry whether your food would run out before you got money to buy more?: Never true Do you have trouble paying for medicines?: No Do you have trouble getting transportation to medical appointments?: No Do you have trouble paying your heating and electricity bill?: No Do you have trouble taking care of your child, family member or friend?: No Do you have trouble with day-to-day activities such as bathing, preparing meals, shopping, managing finances, etc.?: No Are you currently unemployed and looking for a job?: No Are you interested in more education?: No Please select the resources that you would like help with: None Currently or been in a relationship where the following occur: No concerns reported THRIVE Score: 0 KELLY-7 AMB Questionnaire KELLY-7 Date KELLY - 7 assessed: 12/20/23 Source: Developed by Drs. Parth Gomez, Juliet Nguyen, Juan Gonzalez and colleagues, with an educational aj from [employer]. Review of Systems Const Denies chills, Denies fatigue, Denies fever(s), Denies headache(s) and Denies weakness ENT Denies dizziness and Denies headache(s) Card Denies dyspnea Resp Denies cough, Denies dyspnea, Denies wheezing and Denies other (shortness of breath) Musc Reports back pain, Denies numbness and Denies tingling Neuro Denies dizziness, Denies headache(s), Denies numbness, Denies tingling and Denies weakness Psych Denies anxiety and Denies depression Endo Denies fatigue Aller/Immun Denies wheezing Physical exam (Primary Care) Vital Signs: Last Vital Signs Temp 97.4 F 03/11/25 15:43 Pulse 60 03/11/25 15:43 Resp 16 03/11/25 15:43 BP 119/78 03/11/25 15:43 Pulse Ox 96 03/11/25 15:43 Oxygen Delivery Method Room Air 03/11/25 15:43 BMI result Body Mass Index 31.5 Tobacco/Smoking Status: Tobacco use Status Tobacco use date assessed 03/11/25 03/11/25 15:41 Patient Tobacco Use Status Former Tobacco user 03/11/25 15:34 e-Cigarette/Vaping Use Currently Using 03/11/25 15:34 Thrive Assessment: Date of Thrive Assessment Date Thrive assessed 03/11/25 03/11/25 15:41 Currently or been in a relationship where the following occur: No concerns reported Const General: well developed; No acute distress Nutritional Appearance: well nourished Orientation/consciousness: patient oriented x3 HENMT Head: Yes normocephalic and Yes atraumatic Eyes General: appearance normal, both eyes and all related structures Pupils: Equal, round and reactive pupils present EOM: EOMs intact bilaterally Resp Effort & Inspection: normal respiratory effort Neuro General: patient oriented x3 and gait normal Cranial nerves: Yes Equal, round and reactive pupils present Psych Affect: normal affect Coding Level of Care Code Est Pt Level 4 (71753) Diagnoses Mixed hyperlipidemia E78.2 Essential hypertension I10 Pre-diabetes R73.03 Assessment & Plan Assessment & Plan (1) Mixed hyperlipidemia: Code(s): E78.2 - Mixed hyperlipidemia Category: Medical Plan: Patient?still?has?high?lipids?and?has?had?difficulty?getting?these?under?control Had?referred?him?to?Cardiology?in?they?had?ordered?Repatha?but?this?was?still?declined?by?his?insurance.??Patient?says?he?is?changing?insurance?soon. Medicaid Nurse also?check?a?cardiac?calcium?score?which?was?0 Also?checked?an?echocardiogram?which?was?normal Follow-up?with?Cardiology?as?recommended (2) Essential hypertension: Code(s): I10 - Essential (primary) hypertension Category: Medical Plan: Blood?pressure?is?well?controlled. Cardiology?had?added?losartan?and?he?continues?metoprolol No?changes?to?current?medication?regimen (3) Pre-diabetes: Code(s): R73.03 - Prediabetes Category: Medical Plan: A1c?improved?to?5.7%?on?metformin?250?mg?daily He?will?continue?this Plan Also?has?elevated?liver?enzymes.??He?was?referred?to?Gastroenterology They?had?scheduled?him?this?spring?but?unchanged?his?appointment?to?late?summer?or?early?fall Follow-up?with?GI?as?recommended Orders: Orders Comprehensive [place]. Panel Fast Today R74.8 - Abnormal levels of other serum enzymes, Z00.00 - Encounter for general adult medical examination without abnormal findings Hemoglobin A1c Today R73.01 - Impaired fasting glucose, R73.03 - Prediabetes UA CC w/rflx Micro + Cult Today I10 - Essential (primary) hypertension, Z00.00 - Encounter for general adult medical examination without abnormal findings TSH reflex Free T4 Today I10 - Essential (primary) hypertension, Z00.00 - Encounter for general adult medical examination without abnormal findings Microalbumin, Random (w Creat) Today I10 - Essential (primary) hypertension Testosterone, Free/Total Today R53.83 - Other fatigue Referrals Physiatry Referral M54.9 - Dorsalgia, unspecified, M79.602 - Pain in left arm
[2025-03-11 15:43] VITALS: BP 119/78; PULSE 60; RESP 16; TEMP 36.3; O2SAT 96; BMI 31.5
--- OUTSIDE RECORDS SUMMARY | 2025-03-11 15:56 | XMS_ITS | Continuity of Care Document ---
Author Organization [facility] Address [address] [place] [address] Phone Care Team Providers Care Phytopathology Teacher Name Role Phone Troy Hurt MD [...] Diagnoses Date Provider Providers Copied on Encounter [facility], [address], [place], [place], [id number], tel:[phone] CHV Odalis Dizziness 4 Licha Simmons. [address], [address] [facility], [place], [address], [place]. tel: [phone] Referring Provider: rToy Green, [address], [place], [address]. tel:[phone] [facility], [address] [place] [address], [id number], [place] tel:[phone] CH[facility] Odalis DizzinessHypertens carla Heart Disease, Benign, without CHF 4 Jaja Chirinos er. [address], [address], [place], [address], [place]. tel:[phone] Referring Provider: Troy Green, [address], [place], [address]. tel:[phone] [facility] , [address] [place] [address], [id number], [place] tel:[phone] CHMaryellen Jacobo Mixed HyperlipidemiaHype rtensive Heart Disease, Benign, without CHFDizziness 4 Maddisonao Troy. [address], [address], [place], [address], [place]. tel: [phone] Referring Provider: Sunny Almanzar MD, [address], [place], [address] . tel:[phone] [facility] , [address] [place] [address], [id number], [place] tel:[phone] [facility] No Information 4 Licha Simmons. [address], [address], [place], [address], [place]. tel: [phone] Referring Provider: Sunny Almanzar MD, [address], [place], [address] . tel:[phone] Family History Family Member Type Diagnosis Age At Onset Paternal Grandmother Problem (finding) stroke Paternal Grandfather Problem (finding) Diabetes mellit us Payers Payer name Insurance type Covered republican ID Authoriza tion(s) MEDICAID [id number] Social History Type Description Quantity Date Captured [...]
== END 2025-03-11 16:33 | disposition home or self-care (01) ==
LOC: HO.HMCFM 15:22
PROVIDERS: PCP Family Medicine; Visit Provider Family Medicine
DX: E78.2 Mixed hyperlipidemia (principal); I10 Essential (primary) hypertension; R73.03 Prediabetes

== ENCOUNTER → 2025-03-11 15:21 | Outpatient (BNVA) | payer OTHER, SELFPAY | PROVIDERS: PCP Family Medicine; Visit Provider Family Medicine | DX: E78.2 Mixed hyperlipidemia (principal); M25.512 Pain in left shoulder; M54.9 Dorsalgia, unspecified; R73.03 Prediabetes; I10 Essential (primary) hypertension; R73.01 Impaired fasting glucose; R53.83 Other fatigue; M79.602 Pain in left arm | CPT/HCPCS: 83036 ==

== ENCOUNTER 2025-04-24 15:24 | Outpatient (AMB) | payer OTHER, SELFPAY ==
--- OUTSIDE RECORDS SUMMARY | 2014-03-30 03:45 | XMS_ITS | Continuity of Care Document ---
Author Organization [facility] Address [address] [facility] [address] [place] [address] Phone Care Team Providers Care Planetarium Technician Name Role Phone Troy Hurt MD Unavailable [...] Diagnoses Date Provider Providers Copied on Encounter [facility], [address], [place], [place], [id number], tel:[phone] CHV Odalis Dizziness 4 Licha Simmons. [address], [address] [facility], [place], [address], [place]. tel: [phone] Referring Provider: Troy Green, [address], [place], [address]. tel:[phone] [facility], [address] [place] [address], [id number], [place] tel:[phone] CHV Odalis DizzinessHypertens carla Heart Disease, Benign, without CHF 4 Jaja Chirinos er. [address], [address], [place], [address], [place]. tel:[phone] Referring Provider: Troy Green, [address], [place], [address]. tel:[phone] [facility] , [address] [place] [address], [id number], [place] tel:[phone] CHV Odalis Mixed HyperlipidemiaHype rtensive Heart Disease, Benign, without CHFDizziness 4 Maddisonao Troy. [address], [address], [place], [address], [place]. tel: [phone] Referring Provider: Sunny Almanzar MD, [address], [place], [address] . tel:[phone] [facility] , [address] [place] [address], [id number], [place] tel:[phone] [facility] No Information 4 Licha Simmons. [address], [address], [place], [address], [place]. tel: [phone] Referring Provider: Sunny Almanzar MD, [address], [place], [address] . tel:[phone] Family History Family Member Type Diagnosis Age At Onset Paternal Grandfather Problem (finding) Diabetes mellit Paternal Grandmother Problem (finding) stroke Payers Payer name Insurance type Covered democrat ID Authoriza tion(s) MEDICAID [id number] Social History Type Description Quantity Date Captured [...]
--- OUTSIDE RECORDS SUMMARY | 2025-04-24 15:26 | XMS_ITS | Patient Health Record ---
Author Organization [facility] Billing Info Address [address] [place] [address] Support Name Relationship Address Phone Alan Pickett Guarantor Unknown [phone] Reason For Referral No Information Plan Of Treatment No Information Insurance Providers Payer Name Payer Address Payer Phone Subscriber Number Group Number Insured Name Patient Relationship to Insured Coverage Start Date Coverage End Date [place] [address] [place], [place] [id number] [phone] [id number] Alan Pickett Self - patient is the insured 4 0
--- NOTE | 2025-04-24 15:37 | A.OFFVIS_ITS ---
Vital Signs 04/24/25 15:38 Height 5 ft 9 in Pulse 76 Pulse Source Pulse Oximeter Pulse Oximetry (%) 97 Oxygen Delivery Method Room Air Intake Visit Reasons: MAT Allergies No Known Allergies Allergy (Verified 04/24/25 15:45) HPI Comments Details: He is doing well and has no complaints. [facility] Medical History Family history of bicuspid aortic valve Hypertension Surgical History History of surgery on arm Family History Mother HTN (hypertension) Father Liver cancer Stroke Prostate cancer Sister No problems noted. 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 See as scheduled. Medications: New buprenorphine-naloxone 8-2 mg (Suboxone) 1 film sublingual BID 60 ea 2RF 30 days Coding Level of Care Code Est Pt Level 3 (07243) Diagnoses Opioid use disorder, severe, in sustained remission F11.21
[2025-04-24 15:38] VITALS: PULSE 76; O2SAT 97
== END 2025-04-24 16:31 | disposition home or self-care (01) ==
PROVIDERS: PCP Family Medicine; Visit Provider Internal Medicine
DX: F11.21 Opioid dependence, in remission (principal)
CPT/HCPCS: 99213

== ENCOUNTER 2025-05-23 08:33 | Outpatient (REF) | payer OTHER, SELFPAY ==
[2025-05-23 09:13] LABS: Appearance Urine Clear; Glucose Urine UA Negative (Negative); PH 5.5 (5.0-9.0); Specific Gravity - Urine 1.025 (1.005-1.025)
[2025-05-23 09:28] LABS: Alanine Aminotransferase 35 U/L (0-40); Albumin Level 4.6 g/dL (3.5-5.0); Alkaline Phosphatase 42 U/L (39-117); Anion Gap 13 (12-20); Aspartate Amino Transferase 32 U/L (5-37); Blood Urea Nitrogen 13 mg/dL (9-16); Calcium 9.0 mg/dL (8.4-10.2); Carbon Dioxide 30 mmol/L (22-29); Chloride 104 mmol/L (96-108); Cholesterol 217 mg/dL (<200); Estimated Glomerular Filt Rate > 60; HDL Cholesterol 37 mg/dL (>40); Potassium 4.7 mmol/L (3.3-5.1); Sodium 142 mmol/L (135-145); Total Protein 7.1 g/dL (6.5-8.0); Triglycerides 217 mg/dL (<150)
[2025-05-23 09:31] LABS: Microalbum/Creatinine Ratio Ur 4.9 ug/mg cr (<30)
[2025-05-23 10:45] LABS: Hemoglobin A1C 142.4877 umol/L; Total Hemoglobin (HGBA1C) 3655.3270 umol/L
[2025-05-29 14:38] LABS: Testosterone, Free 20.5 pg/mL (35.0-155.0)
== END 2025-05-23 08:34 | disposition home or self-care (01) ==
LOC: HO.LAB 08:33
PROVIDERS: PCP Family Medicine
DX: Z00.00 Encounter for general adult medical examination without abnormal findings (principal); R73.03 Prediabetes; E78.2 Mixed hyperlipidemia; I10 Essential (primary) hypertension; R73.01 Impaired fasting glucose; R53.83 Other fatigue; R74.8 Abnormal levels of other serum enzymes
CPT/HCPCS: 36415; 80048; 80053; 80061; 81003; 82043; 82570; 83036; 84402; 84403; 84443

== ENCOUNTER 2025-05-27 14:47 | Outpatient (AMB) | payer OTHER, SELFPAY ==
--- OUTSIDE RECORDS SUMMARY | 2014-03-30 03:45 | XMS_ITS | Continuity of Care Document ---
Author Organization [facility] Address [address] [place] [address] Phone Care Team Providers Care Hospital Carrier Name Role Phone Troy Hurt MD Unavailable [...] Diagnoses Date Provider Providers Copied on Encounter [facility], [address], [place], [place], [id number], tel:[phone] CHV Odalis Dizziness 4 Licha Simmons. [address], [address] [facility], [place], [address], [place]. tel: [phone] Referring Provider: Troy Green, [address], [place], [address]. tel:[phone] [facility], [address] [place] [address], [id number], [place] tel:[phone] CHV Odalis DizzinessHypertens carla Heart Disease, Benign, without CHF 4 Jaja Chirinos er. [address], [address], [place], [address], [place]. tel:[phone] Referring Provider: Troy Green, [address], [place], [address]. tel:[phone] [facility] , [address] [place] [address], [id number], [place] tel:[phone] CHV Odalis Mixed HyperlipidemiaHype rtensive Heart Disease, Benign, without CHFDizziness 4 Maddisonao Troy. [address], [address], [place], [address], [place]. tel: [phone] Referring Provider: Sunny Almanzar MD, [address], [place], [address] . tel:[phone] [facility] , [address] [place] [address], [id number], [place] tel:[phone] [facility] No Information 4 Licha Simmons. [address], [address], [place], [address], [place]. tel: [phone] Referring Provider: Sunny Almanzar MD, [address], [place], [address] . tel:[phone] Family History Family Member Type Diagnosis Age At Onset Paternal Grandfather Problem (finding) Diabetes mellit Paternal Grandmother Problem (finding) stroke Payers Payer name Insurance type Covered republican ID Authoriza tion(s) MEDICAID [id number] Social History Type Description Quantity Date Captured [...]
--- OUTSIDE RECORDS SUMMARY | 2025-05-27 14:54 | XMS_ITS | Patient Health Record ---
Author Organization [facility] Billing Info Address [address] [place] [address] Support Name Relationship Address Phone Alan Pickett Guarantor Unknown [phone] Reason For Referral No Information Plan Of Treatment No Information Insurance Providers Payer Name Payer Address Payer Phone Subscriber Number Group Number Insured Name Patient Relationship to Insured Coverage Start Date Coverage End Date [place]ID [place] [address] [place], [place] [id number] [phone] [id number] Alan Pickett Self - patient is the insured 4 0
--- NOTE | 2025-05-27 15:00 | MHC.OFFVIS ---
Vital Signs 05/27/25 15:01 Height 5 ft 9 in Weight 203 lb 11.314 oz BMI 30.1 BP 108/76 Blood Pressure Location Rt brachial Position Sitting Pulse 79 Pulse Source Monitor Intake Visit Reasons: 3 month f/up labs Commercial Administrator Required: No Accompanied by: Self / Same As Patient Allergies No Known Allergies Allergy (Verified 04/24/25 15:45) Medication List - Last Reconciled 05/27/25 by Demetris Ramirez NP alprazolam 2 mg (2 x 1 mg) PO DAILY 30 days buprenorphine-naloxone 8-2 mg (Suboxone) 2 film sublingual DAILY 30 days buprenorphine-naloxone 8-2 mg 2 tabs sublingual DAILY 30 days buprenorphine-naloxone 8-2 mg (Suboxone) 1 film sublingual BID 30 days losartan 25 mg PO DAILY metformin 250 mg (1/2 x 500 mg) PO QPM 30 days metoprolol succinate ER 100 mg PO DAILY omega-3 acid ethyl esters 2 caps PO BID HPI Comments Details: This is a 44 year old male patient coming in for a follow-up visit. Patient was previously seen in the office for management of hyperlipidemia. Patient with a history of hypertension, hypertriglyceridemia, and hyperlipidemia. Patient had previously tried statins and was intolerant to them and was on fenofibrate with a which patient again developed some side effects. Patient underwent a coronary calcium score which was 0. And with insurance denials for Vascepa and Repatha, patient was put on [place] 3 ethyl esters. Today patient reports feeling well overall without any cardiac symptoms of exertional chest pain, shortness of breath, palpitations, dizziness, orthopnea, PND, leg edema, presyncope or syncope. Patient states he is compliant with all his medications. Patient has also been started on metformin therapy recently by his PCP for hyper triglyceridemia. Patient also mentions that he has been very active and lost more than 20 lb. Patient was commended for this. [facility] Medical History Family history of bicuspid aortic valve Hypertension Surgical History History of surgery on arm Family History Mother HTN (hypertension) Father Liver cancer Stroke Prostate cancer Sister No problems noted. 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 occupational exposures/hazards: No Cognitive needs: No Hearing needs: No Vision needs: No Review of Systems Const Denies daytime sleepiness, Denies difficulty sleeping, Denies snoring, Denies stops breathing during sleep and Denies weakness Card Denies chest pain, Denies rapid heart rate, Denies irregular heart rhythm, Denies claudication, Denies leg edema, Denies lightheadedness, Denies palpitations, Denies dyspnea, Denies dyspnea on exertion, Denies orthopnea, Denies paroxysmal nocturnal dyspnea and Denies slow heart rate Resp Denies cough, Denies dyspnea, Denies dyspnea on exertion and Denies snoring GI Reports no additional complaints, Denies hematochezia, Denies change in stool character and Denies dyspepsia Musc Denies abnormal gait, Denies muscle weakness and Denies numbness Neuro Denies abnormal gait, Denies numbness and Denies weakness Endo Denies palpitations Physical Exam Vital Signs: Last Vital Signs Pulse 79 05/27/25 15:01 BP 108/76 05/27/25 15:01 BMI result Body Mass Index 30.1 Const General: cooperative, healthy appearing, comfortable and no acute distress Orientation/consciousness: patient oriented x3 HEENT Head: Yes normal to inspection Neck Neck: Yes normal visual inspection, Yes trachea midline and Yes supple Chest Chest palpation & inspection: normal inspection of the chest Resp Effort & Inspection: normal respiratory effort Auscultation: clear to auscultation bilaterally, no crackles, no rales, no rhonchi and no wheezes Cardio Jugular venous distension: no JVD Palpation: normal PMI Rate: regular rate Rhythm: regular rhythm Heart sounds: S1 normal heart sound present, S2 normal heart sound present, no click, no gallops, no murmurs and no rubs Peripheral pulses: Peripheral pulses 2+ throughout GI Inspection: Yes normal to inspection Palpation (GI): Soft to palpation Auscultation: normal bowel sounds Skin General skin exam: no rashes or lesions noted Neuro General: patient oriented x3 Extrem General: Yes normal to inspection, No no pedal edema and No calf tenderness Psych Appearance: grossly normal Mental Status: mental status grossly normal Speech and movement: Normal speech and movement present Office Procedures EKG Details: EKG today showed normal sinus rhythm with a rate 79 beats per minute, [place], [place]. [id number], Complete Assessment & Plan Assessment & Plan (1) Mixed hyperlipidemia: Code(s): E78.2 - Mixed hyperlipidemia Category: Medical Plan: 01/21/2025-patient underwent a coronary calcium score was 0. With the patient's intolerance to statins and fibrates, patient was placed on Repatha and Vascepa but due to insurance denial else, patient was switched to [place] 3 ethyl esters. Patient's most recent triglycerides improved from 440 in December to 217; cholesterol improved from 283 to 217, and LDL now at 137. Continue current regimen. We will repeat lipid profile in next 3-6 months. Advised to continue staying active and focus on weight loss. Patient also notes that he was recently placed on metformin by his PCP for the hypertriglycerides. Advised on heart healthy diet with low fatty foods. (2) Essential hypertension: Code(s): I10 - Essential (primary) hypertension Category: Medical Plan: Blood pressure today is stable. Continue losartan and metoprolol therapy. Advised monitoring blood pressures at home with a goal less than 130/80. Advised heart healthy diet, regular exercise, med compliance, and management of vascular risk factors. Follow up in 1 year, sooner if needed. In the interim, patient will call the office with any concerns or change in symptoms. This note was generated using voice recognition software. While every effort has been made to ensure accuracy and proper consumer marketing specialist, there may be occasional errors that could affect the content or meaning of the described symptoms. Orders: Orders Lipid Panel 6 Months E78.2 - Mixed hyperlipidemia AMB EKG-In Office Today E78.2 - Mixed hyperlipidemia Coding Level of Care Code Est Pt Level 4 (87404) Complex EM visit Add On G2211 Diagnoses Mixed hyperlipidemia E78.2 Essential hypertension I10 CPT Codes EKG - CPT: 44225-[id number], Complete ([id number]) Time Spent (min) 31 Comment Time spent in reviewing the chart, test results, assessment, counseling and documentation.
[2025-05-27 15:01] VITALS: BP 108/76; PULSE 79; BMI 30.1
== END 2025-05-27 15:21 | disposition home or self-care (01) ==
LOC: HO.HCS 14:48
PROVIDERS: PCP Family Medicine
DX: E78.2 Mixed hyperlipidemia (principal); I10 Essential (primary) hypertension
CPT/HCPCS: 93010; 99214

== ENCOUNTER → 2025-05-27 14:47 | Outpatient (BNVA) | payer OTHER, SELFPAY | PROVIDERS: PCP Family Medicine | DX: I10 Essential (primary) hypertension (principal) | CPT/HCPCS: 93005 ==

== ENCOUNTER 2025-06-23 15:27 | Outpatient (AMB) | payer OTHER, SELFPAY ==
--- OUTSIDE RECORDS SUMMARY | 2014-03-30 03:45 | XMS_ITS | Continuity of Care Document ---
Author Organization [facility] Address [address] [facility] [address] [place] [address] Phone Care Team Providers Care Java User Interface Developer Name Role Phone Troy Hurt MD Unavailable [...] Diagnoses Date Provider Providers Copied on Encounter [facility], [address] [facility] [address] [facility] [address] [facility] [address], [place], [place], [id number], tel:[phone] CHV Odalis Dizziness 4 Licha Simmons. [address], [address] [facility], [place], [address], [place]. tel: [phone] Referring Provider: Troy Green, [address], [place], [address]. tel:[phone] [facility], [address] [place] [address], [id number], [place] tel:[phone] CHV Odalis DizzinessHypertens carla Heart Disease, Benign, without CHF 4 Jaja Chirinos er. [address], [address], [place], [address], [place]. tel:[phone] Referring Provider: Troy Green, [address], [place], [address]. tel:[phone] [facility] , [address] [place] [address], [id number], [place] tel:[phone] CHV Odalis Mixed HyperlipidemiaHype rtensive Heart Disease, Benign, without CHFDizziness 4 Maddisonao Troy. [address], [address], [place], [address], [place]. tel: [phone] Referring Provider: Sunny Almanzar MD, [address], [place], [address] . tel:[phone] [facility] , [address] [place] [address], [id number], [place] tel:[phone] [facility] No Information 4 Licha Simmons. [address], [address], [place], [address], [place]. tel: [phone] Referring Provider: Sunny Almanzar MD, [address], [place], [address] . tel:[phone] Family History Family Member Type Diagnosis Age At Onset Paternal Grandfather Problem (finding) Diabetes mellit Paternal Grandmother Problem (finding) stroke Payers Payer name Insurance type Covered constitution party ID Authoriza tion(s) MEDICAID [id number] Social History Type Description Quantity Date Captured [...]
--- NOTE | 2025-06-23 15:35 | A.OFFPC_ITS ---
Vital Signs 06/23/25 15:44 Height 5 ft 9 in Weight 205 lb 8 oz BMI 30.3 BP 122/82 Blood Pressure Location Rt brachial Position Sitting Respiration 16 Pulse 66 Pulse Source Pulse Oximeter Temp 97.9 F Temp Source Temporal Artery Scan Pulse Oximetry (%) 97 Oxygen Delivery Method Room Air Intake Visit Reasons: f/u HLD, preDM - see comments Intake Note: Alan Presents in the office today for his cholesterol and pre-diabetes. Allergies No Known Allergies Allergy (Verified 06/23/25 15:40) Medication List - Last Reconciled 06/23/25 by Phoenix Lal MD alprazolam 2 mg (2 x 1 mg) PO DAILY 30 days buprenorphine-naloxone 8-2 mg (Suboxone) 2 film sublingual DAILY 30 days ezetimibe 10 mg PO DAILY losartan 25 mg PO DAILY metformin 500 mg PO QPM 30 days metoprolol succinate ER 100 mg PO DAILY omega-3 acid ethyl esters 2 caps PO BID Tobacco use date assessed: 06/23/25 Dental Screening Dental Screen Date: 06/23/25 Did you have a dental visit in the last 12 months?: Yes Did you have a dental problem in the last 6 months where you did not have access to dental care?: No Was dental information given to patient?: Patient has dentist HPI f/u JANESSA preDM - see comments HPI Details 45 y/o male presents to f/u Lorena RIDDLE. A1c today 06/23/25 6.3%. He is on metformin 250mg daily and has been tolerating this well. Labs drawn 05/23/25. Reviewed labs with pt. A1c 5.7%. Triglycerides 217. TC 217. LDL 137. HDL low at 37. Blood pressure today 122/82, 66p. He is on losartan 25mg daily, metoprolol 100mg daily. HPI Comments History of Present Illness Details Documentation assistance for Phoenix Lal MD, was provided by Ramon Strauss, Receivable Executive on at 4:21 PM EST. I, Dr. Lal, have read, observed, and verified documentation. [facility], [facility] Medical History Family history of bicuspid aortic valve Hypertension Surgical History History of surgery on arm Family History Mother HTN (hypertension) Father Liver cancer Stroke Prostate cancer Sister No problems noted. 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 Current occupational exposures/hazards: No Cognitive needs: No Hearing needs: No Vision needs: No Questionnaire Thrive Questionnaire Date Thrive assessed: 12/04/24 I am a: Patient What is your living situation today?: I have a steady place to live Within the past 12 months, did the food you bought not last and you didn't have the money to get more?: Never true Within the past 12 months, did you worry whether your food would run out before you got money to buy more?: Never true Do you have trouble paying for medicines?: No Do you have trouble getting transportation to medical appointments?: No Do you have trouble paying your heating and electricity bill?: No Do you have trouble taking care of your child, family member or friend?: No Do you have trouble with day-to-day activities such as bathing, preparing meals, shopping, managing finances, etc.?: No Are you currently unemployed and looking for a job?: No Are you interested in more education?: No Please select the resources that you would like help with: None Currently or been in a relationship where the following occur: No concerns reported THRIVE Score: 0 KELLY-7 AMB Questionnaire KELLY-7 Date KELLY - 7 assessed: 12/20/23 Source: Developed by Drs. Parth Gomez, Juliet Nguyen, Juan Gonzalez and colleagues, with an educational aj from [employer]. Review of Systems Const Denies chills, Denies fatigue, Denies fever(s), Denies headache(s) and Denies weakness ENT Denies dizziness and Denies headache(s) Card Denies dyspnea Resp Denies cough, Denies dyspnea, Denies wheezing and Denies other (shortness of breath) Musc Denies numbness and Denies tingling Neuro Denies dizziness, Denies headache(s), Denies numbness, Denies tingling and Denies weakness Psych Denies anxiety and Denies depression Endo Denies fatigue Aller/Immun Denies wheezing Physical exam (Primary Care) Vital Signs: Last Vital Signs Temp 97.9 F 06/23/25 15:44 Pulse 66 06/23/25 15:44 Resp 16 06/23/25 15:44 BP 122/82 06/23/25 15:44 Pulse Ox 97 06/23/25 15:44 Oxygen Delivery Method Room Air 06/23/25 15:44 BMI result Body Mass Index 30.3 Tobacco/Smoking Status: Tobacco use Status Tobacco use date assessed 06/23/25 06/23/25 15:47 Patient Tobacco Use Status Former Tobacco user 06/23/25 15:44 e-Cigarette/Vaping Use Currently Using 06/23/25 15:44 Thrive Assessment: Date of Thrive Assessment Date Thrive assessed 12/04/24 06/23/25 15:37 Currently or been in a relationship where the following occur: No concerns reported Const General: well developed; No acute distress Nutritional Appearance: well nourished Orientation/consciousness: patient oriented x3 HENMT Head: Yes normocephalic and Yes atraumatic Eyes General: appearance normal, both eyes and all related structures Pupils: Equal, round and reactive pupils present EOM: EOMs intact bilaterally Resp Effort & Inspection: normal respiratory effort Neuro General: patient oriented x3 and gait normal Cranial nerves: Yes Equal, round and reactive pupils present Psych Affect: normal affect Results AMB Hemoglobin A1c AMB Hemoglobin A1c 6.3 % Last Edit by Sweta Landaverde MA on 06/23/25 15:48 Results Reviewed Results Reviewed: Laboratory Last Values Hgb A1c (Clinic) 6.3 % (4.0-6.0) H 06/23/25 15:47 Coding Level of Care Code Est Pt Level 3 (50187) Diagnoses Mixed hyperlipidemia E78.2 Essential hypertension I10 Diabetes E11.9 Assessment & Plan Assessment & Plan (1) Mixed hyperlipidemia: Code(s): E78.2 - Mixed hyperlipidemia Category: Medical Plan: Patient has not tolerated several medications and his insurance has not covered others. He is taking Zetia as prescribed. Triglycerides are also improved, likely part who due to metformin. Continue current medication regimen (2) Essential hypertension: Code(s): I10 - Essential (primary) hypertension Category: Medical Plan: Blood pressure is fairly well controlled. Goal is less than 130/80 Continue current medication. (3) Diabetes: Code(s): E11.9 - Type 2 diabetes mellitus without complications Category: Medical Plan: A1c despite metformin 250 mg daily has climbed. Likely early diabetes Increase metformin from 250 mg daily to 500 mg daily Continue working at a diet, exercise and decrease intake of sugars and starches Orders: Orders Comprehensive Met. Panel Today I10 - Essential (primary) hypertension Hemoglobin A1c Today E11.9 - Type 2 diabetes mellitus without complications, R73.01 - Impaired fasting glucose AMB Hemoglobin A1c Today R73.03 - Prediabetes Microalbumin, Random (w Creat) Today I10 - Essential (primary) hypertension Medications: Changed From metformin 250 mg (1/2 x 500 mg) PO QPM 30 days 15 tabs 1RF To metformin 500 mg PO QPM 30 tabs 1RF 30 days Refilled losartan 25 mg PO DAILY 90 tabs 2RF
[2025-06-23 15:44] VITALS: BP 122/82; PULSE 66; RESP 16; TEMP 36.6; O2SAT 97; BMI 30.3
--- OUTSIDE RECORDS SUMMARY | 2025-06-23 17:40 | XMS_ITS | Patient Health Record ---
Author Organization [facility] Zaki malone Billing Info Address [address] [place] [address] Support Name Relationship Address Phone Alan Pickett Guarantor Unknown [phone] Reason For Referral No Information Plan Of Treatment No Information Insurance Providers Payer Name Payer Address Payer Phone Subscriber Number Group Number Insured Name Patient Relationship to Insured Coverage Start Date Coverage End Date [place] [address] [place], [place] [id number] [phone] [id number] Alan Pickett Self - patient is the insured 4 0
== END 2025-06-23 16:28 | disposition home or self-care (01) ==
LOC: HO.HMCFM 15:28
PROVIDERS: PCP Family Medicine; Visit Provider Family Medicine
DX: E78.2 Mixed hyperlipidemia (principal); I10 Essential (primary) hypertension; E11.9 Type 2 diabetes mellitus without complications; R73.03 Prediabetes

== ENCOUNTER → 2025-06-23 15:27 | Outpatient (BNVA) | payer OTHER, SELFPAY | PROVIDERS: PCP Family Medicine; Visit Provider Family Medicine | DX: I10 Essential (primary) hypertension (principal); E11.9 Type 2 diabetes mellitus without complications; E78.2 Mixed hyperlipidemia; Z79.84 Long term (current) use of oral hypoglycemic drugs | CPT/HCPCS: 83036 ==

== ENCOUNTER 2025-07-16 08:23 | Outpatient (AMB) | payer OTHER, SELFPAY ==
--- OUTSIDE RECORDS SUMMARY | 2014-03-30 03:45 | XMS_ITS | Continuity of Care Document ---
Author Organization [facility] Address [address] [place] [address] Phone Care Team Providers Care Polytechnic Teacher Name Role Phone Troy Hurt MD Unavailable Unavailable Allergies, Adverse Reactions, Alerts Substance Reaction Status Criticality No Known Drug Allergies Active No I nformation Medications Medication Instructions Dosage Effective Dates (start - stop) Status Comments atorvastatin 20 mg tablet take 1 tablet by oral route every day at HS. 20 MG - Active metoprolol tartrate 50 mg tablet take 1 tablet by ORAL route 2 times every day with meals 50 MG - Active Zanaflex 4 mg capsule take 1 Capsule by ORAL route 3 times PRN - Active Xanax 2 mg tablet take 1 Tablet by ORA L route 3 times every day 2 MG - Active Procedures Procedure Date ECG MONITOR/RECORD, 24 HRS ECG MONITOR/REVIEW, 24 HRS TTE W/DOPPLER, COMPLETE CARDIOVASCULAR STRESS TEST CARDIOVASCULAR STRESS TEST Advance Directives Directive Yes / No Effective Date File Name No Information Encounters Encounter Description Practice Location Reason(s) For Visit Diagnoses Date Provider Providers Copied on Encounter [facility], [address], [place], [place], [id number], tel:[phone] CHV Odalis Dizziness 4 Licha Simmons. [address], [address] [facility], [place], [address], [place]. tel: [phone] Referring Provider: Troy Green, [address], [place], [address]. tel:[phone] [facility], [address] [place] [address], [id number], [place] tel:[phone] CHV Odalis DizzinessHypertens carla Heart Disease, Benign, without CHF 4 Jaja Chirinos er. [address], [address], [place], [address], [place]. tel:[phone] Referring Provider: Troy Green, [address], [place], [address]. tel:[phone] [facility] , [address] [place] [address], [id number], [place] tel:[phone] CHMaryellen Jacobo Mixed HyperlipidemiaHype rtensive Heart Disease, Benign, without CHFDizziness 4 Maddisonao Troy. [address], [address], [place], [address], [place]. tel: [phone] Referring Provider: Sunyn Almanzar MD, [address], [place], [address] . tel:[phone] [facility] , [address] [place] [address], [id number], [place] tel:[phone] [facility] No Information 4 Licha Simmons. [address], [address], [place], [address], [place]. tel: [phone] Referring Provider: Sunny Almanzar MD, [address], [place], [address] . tel:[phone] Family History Family Member Type Diagnosis Age At Onset Paternal Grandmother Problem (finding) stroke Paternal Grandfather Problem (finding) Diabetes mellit us Payers Payer name Insurance type Covered constitution party ID Authoriza tion(s) MEDICAID [id number] Social History Type Description Quantity Date Captured Comments Sex Male Smoking Status No Information Chief Complaint And Reason For Visit No Information Reason For Referral Reason For Referral No Information History Of Present Illness Encounter Date Complaint History Of Prese nt Illness No Information Functional Status Date Functional Assessmen t No Information Instructions Date Instruction Additional Infor mation No Information Assessments Type Assessment Date No Information Patient Care Teams Name Effective Dates (start - stop) Status Members No Information
--- NOTE | 2025-07-16 08:28 | MHC.OFFVIS ---
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 Patient was referred by [facility] 03/11/25. At today's visit he states that he broke his left arm back in 2008 and ever since then he has a discomfort but manageable. He reports that his main concern is the middle of his back pain, he has had mid to lower back pain for the past two years. He states that he has not tried physical therapy or injections but he has tried at home exercises. He has tried heat, ice and even changed his bed to see if that would help relieve the pain. Patient states that the pain does radiate into the left hip and into the left leg. Allergies No Known Allergies Allergy (Verified 07/16/25 08:32) HPI Comments Details: He points to mid upper lumbar, 2 years. He says he's fallen a few times 2008 and 1999 with humerus fracture. Starts in the middle then goes to muscles to both sides, go down the right leg. Then mentions a separate left groin/hip pain. No imaging done in past. 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 He's already tried conservative management including changing shoes and mattress. [facility] Medical History Family history of bicuspid aortic valve Hypertension Surgical History History of surgery on arm Family History Mother HTN (hypertension) Father Liver cancer Stroke Prostate cancer Sister No problems noted. 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 Patient was appropriately conversant and oriented. Good historian. MSK: Inspection reveals appropriate head and neck positioning. He indicates tenderness is at T12 spinous process area, indicates that he would have achiness on paraspinals and quadratus lumborum as well. Cervical ROM was full. Spurling's sign negative. No specific abnormalities or instability found on inspection and palpation of the spine and extremities. Lumbar ROM was full. Slump sit negative. Strength is 5/5 in all muscle groups tested. No increased tone noted. Neurological: Neurologic examination of the upper and lower extremities was nonfocal with intact sensation, muscle stretch reflexes and without focal motor deficits . Castillo?s negative bilaterally. Babinski was down going bilaterally. Clonus was negative. Gait is non-antalgic without loss of balance. Vital Signs: BMI result Body Mass Index 30.3 Results Reviewed Results Reviewed: I reviewed records from the following: PCP Assessment & Plan Assessment & Plan (1) Thoracic back pain: Code(s): M54.6 - Pain in thoracic spine Category: Medical Qualifiers: Chronicity: chronic Back pain laterality: midline Qualified Code(s): M54.6 - Pain in thoracic spine; G89.29 - Other chronic pain Plan Chronic thoracic back pain, along T11 or T12 level. Could be paraspinals and quadratus lumborum as well. Separate left hip pain. Sending for thoracic, lumbar, and left hip x-rays today. Discussed benefits of going to PT. Patient is agreeable. Assessment and plan discussed with patient, and patient was agreeable. All questions were answered thoroughly. Follow up 3 months. Odalis Gar MD, NIKKI Board Certified, [place] Board of Physical Medicine and Rehabilitation (ABPMR) Board Certified, [place] Board of Electrodiagnostic Medicine (ABEM) Orders: Orders XR thoracic spine 3V Today M54.6 - Pain in thoracic spine PT Evaluation and Treatment Today M54.6 - Pain in thoracic spine XR lumbar spine 2-3V Today M54.9 - Dorsalgia, unspecified XR hip LT min 2V Today M16.12 - Unilateral primary osteoarthritis, left hip Coding Level of Care Code New Pt Level 4 (60175) Diagnoses Chronic midline thoracic back pain M54.6; G89.29 Chronicity: chronic Back pain laterality: midline
[2025-07-16 08:32] VITALS: BMI 30.3
--- OUTSIDE RECORDS SUMMARY | 2025-07-16 08:40 | XMS_ITS | Patient Health Record ---
Author Organization [facility] Zaki malone Billing Info Address [address] [place] [address] Support Name Relationship Address Phone Alan Pickett Guarantor Unknown [phone] Reason For Referral No Information Plan Of Treatment No Information Insurance Providers Payer Name Payer Address Payer Phone Subscriber Number Group Number Insured Name Patient Relationship to Insured Coverage Start Date Coverage End Date [place] [address] [place], [place] [id number] [phone] [id number] Alan Pickett Self - patient is the insured 4 0
== END 2025-07-16 08:56 | disposition home or self-care (01) ==
LOC: HO.HOS 08:24
PROVIDERS: PCP Family Medicine; Visit Provider Physical Medicine & Rehabilitation
DX: M54.6 Pain in thoracic spine (principal); G89.29 Other chronic pain
CPT/HCPCS: 99204

== ENCOUNTER 2025-07-16 08:23 | Outpatient (REF) | payer OTHER, SELFPAY ==
--- NOTE | ~2025-07-16 | XR_ITS ---
EXAMINATION: XR LUMBOSACRAL SPINE CLINICAL INFORMATION: M54.9 - Dorsalgia, unspecified COMPARISON: None available. TECHNIQUE: AP and lateral views FINDINGS: Mild multilevel endplate sclerosis and small marginal osteophyte formation at multiple levels. No acute cortical disruption or malalignment. S-shaped curvature of the lumbar spine, mild. Spina bifida occulta, S1. XR/XR lumbar spine 2-3V IMPRESSION: Mild multilevel spondylosis without acute fracture or listhesis. Electronically signed by: Chauncey Gimenez MD 07/16/2025 10:04 AM EDT
--- NOTE | ~2025-07-16 | XR_ITS ---
EXAMINATION: XR HIP, LEFT CLINICAL INFORMATION: M16.12 - Unilateral primary osteoarthritis, left hip COMPARISON: None available. TECHNIQUE: AP pelvis. AP and oblique views of the left hip. FINDINGS: No acute fracture or dislocation, left coxofemoral joint. Mild sclerosis in the symphysis pubis. No lytic or blastic lesions. There is preservation of the joint space, both hips. Spina bifida occulta, S1. XR/XR hip LT w PEL1V IMPRESSION: Normal x-ray, left hip. Electronically signed by: Chauncey Gimenez MD 07/16/2025 10:05 AM EDT
--- NOTE | ~2025-07-16 | XR_ITS ---
EXAMINATION: XR THORACIC SPINE CLINICAL INFORMATION: M54.6 - Pain in thoracic spine COMPARISON: None available. TECHNIQUE: AP and lateral views FINDINGS: Mild multilevel marginal osteophyte formation and endplate sclerosis with right-sided syndesmophyte formation at T9-10. No acute cortical disruption or malalignment. No lytic or blastic lesions. XR/XR thoracic spine 3V IMPRESSION: Mild lower thoracic spondylosis. Concerning seronegative arthritis. Electronically signed by: Chauncey Gimenez MD 07/16/2025 10:03 AM EDT
== END 2025-07-16 08:24 | disposition home or self-care (01) ==
LOC: HO.XRAY 08:23
PROVIDERS: PCP Family Medicine; Visit Provider Physical Medicine & Rehabilitation
DX: M54.6 Pain in thoracic spine (principal); G89.29 Other chronic pain; M16.12 Unilateral primary osteoarthritis, left hip
CPT/HCPCS: 72072; 72100; 73502

== ENCOUNTER → 2025-07-16 09:10 | Outpatient (BNV) | payer OTHER, SELFPAY | PROVIDERS: PCP Family Medicine; Visit Provider Radiology Diagnostic Radiology | DX: M47.814 Spondylosis without myelopathy or radiculopathy, thoracic region (principal); M54.9 Dorsalgia, unspecified; M16.12 Unilateral primary osteoarthritis, left hip | CPT/HCPCS: 72072; 72100; 73502 ==

== ENCOUNTER 2025-07-24 15:08 | Outpatient (AMB) | payer OTHER, SELFPAY ==
[2025-07-24 15:13] VITALS: BP 120/70; PULSE 60; O2SAT 99
--- NOTE | 2025-07-24 15:13 | A.OFFVIS_ITS ---
Vital Signs 07/24/25 15:13 BP 120/70 Pulse 60 Pulse Oximetry (%) 99 Intake Visit Reasons: MAT Allergies No Known Allergies Allergy (Verified 07/24/25 15:14) HPI Comments Details: History of Present Illness The patient is a 45-year-old male presenting for a follow-up concerning opioid use disorder management. He has shown stability on Suboxone 8 mg/2 mg BID, receiving a month's supply with two refills, and reports no adverse effects or concerns about his medication regimen. He has maintained this treatment without reporting new or worsening symptoms. Occasionally, he experiences shoulder discomfort due to his workload, which he does not consider significant. Overall, he is satisfied with his current management of opioid use disorder. Review of Systems - General: Denies complaints, reports doing well. - Musculoskeletal: Reports minor discomfort in shoulders, no significant concern. Physical Exam - Vitals- Stable Results Plan Patient was informed and verbally consented to the use of an ambient scribe for clinic note documentation during this visit. 1. Opioid use, unspecified, uncomplicated F11.90 The patient will continue on Suboxone 8 mg/2 mg BID, as it effectively manages his condition. He should return in three months for evaluation. The current treatment aims to maintain stability and prevent relapse. Discussion Notes During our discussion, I reinforced the importance of continued adherence to the Suboxone regimen for managing opioid use disorder. I presented the benefits of maintaining this regimen to prevent relapse and control cravings. We reviewed potential side effects, which the patient has not experienced, and thus affirmed his satisfaction with the current treatment plan. I instructed the patient to follow up in three months to ensure continued stability and to address any arising concerns. Medical Decision Making The clinical decision-making process focused on assessing the stability and effectiveness of the patient's current treatment regimen for opioid use disorder. Suboxone 8 mg/2 mg BID was confirmed as appropriate, considering the patient's positive response with no reported adverse effects. Factors influencing this decision include the patient's report of stability, satisfaction with the current regimen, and absence of craving or withdrawal symptoms. The primary goal is to maintain stability and prevent relapse, necessitating continued adherence and monitoring. Patient Instructions - Continue taking Suboxone 8 mg/2 mg twice daily as prescribed. - Return for a follow-up appointment in three months. - Report any new symptoms or concerns to the clinic. - Continue occupational activities with care to manage shoulder discomfort. [facility] Medical History Family history of bicuspid aortic valve Hypertension Surgical History History of surgery on arm Family History Mother HTN (hypertension) Father Liver cancer Stroke Prostate cancer Sister No problems noted. 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 Current occupational exposures/hazards: No Cognitive needs: No Hearing needs: No Vision needs: No Physical Exam Vital Signs: Last Vital Signs Pulse 60 07/24/25 15:13 BP 120/70 07/24/25 15:13 Pulse Ox 99 07/24/25 15:13 Assessment & Plan Assessment & Plan (1) Opioid use disorder, severe, in sustained remission: Comment: Doing well Code(s): F11.21 - Opioid dependence, in remission Category: Medical Plan: as abovw Medications: New buprenorphine-naloxone 8-2 mg (Suboxone) 1 film sublingual BID 60 ea 2RF 30 days Coding Level of Care Code Est Pt Level 3 (31902) Diagnoses Opioid use disorder, severe, in sustained remission F11.21
== END 2025-07-24 15:42 | disposition home or self-care (01) ==
LOC: HO.HCC 15:08
PROVIDERS: PCP Family Medicine; Visit Provider Internal Medicine
DX: F11.21 Opioid dependence, in remission (principal)
CPT/HCPCS: 99213

== ENCOUNTER 2025-08-21 10:26 | Outpatient (AMB) | payer OTHER, SELFPAY ==
--- NOTE | 2025-08-21 10:25 | MHC.OFFVIS ---
Vital Signs 08/21/25 10:28 Height 5 ft 9 in Weight 205 lb BMI 30.3 Pulse 84 Pulse Source Monitor Pulse Oximetry (%) 98 Oxygen Delivery Method Room Air Comment Pt reported vitals per smartwatch Intake Visit Reasons: elevated lfts Intake Note: New pt for initial eval of elevated LFTs. CC; Pt denies any GI sx at this time. Last reported labs per pt were within the last 2-3 months. Taking varying doses of Suboxone depending on input from addiction counselor. Methods And Procedures Analyst Required: No Accompanied by: Self / Same As Patient Allergies No Known Allergies Allergy (Verified 07/24/25 15:14) HPI Comments Details: This is a 45-year-old gentleman with past medical history of obesity BMI 30, 30 diabetes, hyperlipidemia, hypertension, who is scheduled today for telehealth visit. Referral was initially sent for elevated LFTs, however these have since normalized. Patient does not report any abdominal pain, nausea, vomiting, change in bowel habits, unintentional weight loss. Does report drinking 1-2 beers every other day. 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 Stiffness reported at 9.87, however suspect this may be overestimated as his fib 4 is 0.8. Patient also at average risk for colon cancer, and due for colon cancer screening. No rectal bleeding, chronic diarrhea, family history of colon cancer. No anemia on labs. Both 1 step in 2 step testing reviewed with the patient, and he prefers colonoscopy. [facility] Medical History Family history of bicuspid aortic valve Hypertension Surgical History History of surgery on arm Family History Mother HTN (hypertension) Father Liver cancer Stroke Prostate cancer Sister No problems noted. 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 Current occupational exposures/hazards: No Cognitive needs: No Hearing needs: No Vision needs: No Review of Systems Const All systems reviewed & are unremarkable except as noted in HPI and below Physical Exam Exam Exam: Video visit: No acute distress No icterus noted No facial asymmetry Speaking in full sentences Vital Signs: Last Vital Signs Pulse 84 08/21/25 10:28 Pulse Ox 98 08/21/25 10:28 Oxygen Delivery Method Room Air 08/21/25 10:28 BMI result Body Mass Index 30.3 Telehealth Telehealth Telehealth Platform: [employer] Location of provider rendering services: practice address Location of patient: address on file Patient Identification confirmed using: Name, : Yes Telehealth method: video Patient verbally consented to treatment: Yes Patient verbally consented to billing insurance company: Yes Patient informed of any privacy concerns related to visit: Yes Minutes spent on Phone/Video with Pt.: 16 Assessment & Plan Assessment & Plan (1) Steatosis, liver: Code(s): K76.0 - Fatty (change of) liver, not elsewhere classified Category: Medical (2) Diabetes: Code(s): E11.9 - Type 2 diabetes mellitus without complications Category: Medical (3) Colon cancer screening: Code(s): Z12.11 - Encounter for screening for malignant neoplasm of colon Category: Medical (4) Obesity (BMI 30.0-34.9): Code(s): E66.9 - Obesity, unspecified Category: Medical Plan 1. 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 REviewed that normal LFTs argue against ongoing active inflammation but management remains modifying risk factors i.e control of obesity, DM, hyperlipidemia as well as minimizing etOH intake. Fib 4 remains low at this time. No indication for repeat US at this time. 2. CRC screening. Average risk for CRC. Pt prefers colo. This will be booked electively. PEG prep and instructions reviewed and sent over portal. Follow up after colo as needed. Orders: Referrals GI Procedure Notification Z12.11 - Encounter for screening for malignant neoplasm of colon Medications: New peg 3350-electrolytes 236-22.74-6.74 -5.86 gram (Golytely) as per split prep instructions, until fecal effluent is clear 240 mL PO Q10M 4,000 mL 0RF colonoscopy Coding Level of Care Code Tele New Pt Level 4 (27471) Diagnoses Steatosis, liver K76.0 Diabetes E11.9 Colon cancer screening Z12.11 Obesity (BMI 30.0-34.9) E66.9
[2025-08-21 10:28] VITALS: PULSE 84; O2SAT 98; BMI 30.3
--- OUTSIDE RECORDS SUMMARY | 2025-08-21 12:19 | XMS_ITS | Patient Health Record ---
Author Organization [facility] Billing Info Address [address] [place] [address] Support Name Relationship Address Phone Alan Pickett Guarantor Unknown [phone] Reason For Referral No Information Plan Of Treatment No Information Insurance Providers Payer Name Payer Address Payer Phone Subscriber Number Group Number Insured Name Patient Relationship to Insured Coverage Start Date Coverage End Date [place] [address] [place], [place] [id number] [phone] [id number] Alan Pickett Self - patient is the insured 4 0
== END 2025-08-21 11:43 | disposition home or self-care (01) ==
LOC: HO.HGI 10:26
PROVIDERS: PCP Family Medicine; Visit Provider Internal Medicine
DX: Z01.818 Encounter for other preprocedural examination (principal); Z12.11 Encounter for screening for malignant neoplasm of colon; K76.0 Fatty (change of) liver, not elsewhere classified; E11.9 Type 2 diabetes mellitus without complications; E66.9 Obesity, unspecified
CPT/HCPCS: 99204

== ENCOUNTER 2025-09-15 15:00 | Outpatient (RCR) | payer OTHER, SELFPAY ==
--- NOTE | 2025-08-11 16:51 | MHC.PT.EP ---
[facility] [place] Office [place] Office [place] Office [address] [phone] F: [phone] F: [phone] F: [phone] F: [phone] Physical Therapy Plan of Care Date of Evaluation: 08/11/25 Date of Surgery: NA Diagnosis: THORACIC BACK PAIN Assessment: Pt IS 45 YO M TO PT FROM ORTHO ([facility]OHNSON) WITH THORACIC BACK PAIN, PARASPINALS, QL. Pt REPORTS NO SPECIFIC INJURY (ALTHOUGH HE HAS HAD FALLS AT WORK AND HAS HX OF L HUMERUS FX (SCREWS). PRESENTS WITH OVERALL LIMITED FLEXIBLITY IN TRUNK AND LES. SHOULD BENEFIT FROM PT TO ADDRESS THESE ISSUES Frequency and Duration: The patient will be seen 1X/WK X 6 WKS Short Term Goals: 1. INCREASED AWARENESS BACK CARE 2. Pt TO PERF 2-3 TASKS WITH PROPER BODY MECH Raise Driller Goals: 1. DECREASED BACK PAIN AT LEAST 50% WITH ADLS 2. I HEP WITH DC EX PLAN Treatment Plan: Modalities to reduce pain, spasms and effusion. Manual therapy to restore motion and function. Therapeutic exercise to improve strength and flexibility. Neuromuscular re-education for posture and balance. Therapeutic activities to return to functional activities of daily living. Electronically signed by: MACK HOLMAN PT Please sign and return to therapist. Thank you for your referral.
--- NOTE | 2025-09-16 12:59 | MHC.PT.EP ---
[facility] [place] [facility] [address] [phone] F: [phone] F: [phone] F: [phone] F: [phone] Physical Therapy Plan of Care Date of Evaluation: 08/11/25 Date of Surgery: NA Diagnosis: THORACIC BACK PAIN Assessment: Pt IS 45 YO M TO PT FROM [facility] ([facility]) WITH THORACIC BACK PAIN, PARASPINALS, QL. Pt REPORTS NO SPECIFIC INJURY (ALTHOUGH HE HAS HAD FALLS AT WORK AND HAS HX OF L HUMERUS FX (SCREWS). PRESENTS WITH OVERALL LIMITED FLEXIBLITY IN TRUNK AND LES. SHOULD BENEFIT FROM PT TO ADDRESS THESE ISSUES Frequency and Duration: The patient will be seen 1X/WK X 6 WKS Short Term Goals: STG's Met Group Home Goals: LTG's Met Treatment Plan: Modalities to reduce pain, spasms and effusion. Manual therapy to restore motion and function. Therapeutic exercise to improve strength and flexibility. Neuromuscular re-education for posture and balance. Therapeutic activities to return to functional activities of daily living. Electronically signed by: MACK HOLMAN PT Please sign and return to therapist. Thank you for your referral.
== END 2025-09-16 12:59 | disposition home or self-care (01) ==
LOC: HO.PT 15:00
PROVIDERS: PCP Family Medicine; Visit Provider Physical Medicine & Rehabilitation
DX: M54.6 Pain in thoracic spine (principal)
CPT/HCPCS: 97110; 97140; 97161; 97530; 97535

== ENCOUNTER 2025-09-23 07:03 | Outpatient (REF) | payer OTHER, SELFPAY ==
[2025-09-23 08:04] LABS: Hemoglobin A1C 151.1398 umol/L
[2025-09-23 08:37] LABS: Alanine Aminotransferase 40 U/L (0-40); Albumin Level 5.1 g/dL (3.5-5.0); Alkaline Phosphatase 50 U/L (39-117); Anion Gap 10 (12-20); Aspartate Amino Transferase 43 U/L (5-37); Blood Urea Nitrogen 17 mg/dL (9-16); Calcium 9.8 mg/dL (8.4-10.2); Carbon Dioxide 30 mmol/L (22-29); Chloride 106 mmol/L (96-108); Cholesterol 282 mg/dL (<200); Estimated Glomerular Filt Rate > 60; HDL Cholesterol 41 mg/dL (>40); Potassium 4.3 mmol/L (3.3-5.1); Sodium 142 mmol/L (135-145); Total Protein 7.8 g/dL (6.5-8.0); Triglycerides 451 mg/dL (<150)
[2025-09-23 09:25] LABS: Microalbum/Creatinine Ratio Ur 34.3 ug/mg cr (<30)
[2025-09-24 12:07] LABS: Anti Nuclear Antibody Screen NEGATIVE (NEGATIVE)
== END 2025-09-23 07:04 ==
LOC: HO.LAB 07:03
PROVIDERS: Absent Provider Family Medicine; PCP Family Medicine; Visit Provider Physical Medicine & Rehabilitation
DX: Z01.84 Encounter for antibody response examination (principal); I10 Essential (primary) hypertension; E11.9 Type 2 diabetes mellitus without complications; E78.2 Mixed hyperlipidemia; M13.80 Other specified arthritis, unspecified site
CPT/HCPCS: 36415; 80053; 80061; 82043; 82570; 83036; 86038; 86431

== ENCOUNTER 2025-09-25 15:07 | Outpatient (AMB) | payer OTHER, SELFPAY ==
--- NOTE | 2025-09-25 15:14 | A.OFFPC_ITS ---
Vital Signs 09/25/25 15:20 Height 5 ft 9 in Weight 213 lb 4 oz BMI 31.5 BP 122/68 Blood Pressure Location Rt brachial Position Sitting Respiration 16 Pulse 69 Pulse Source Pulse Oximeter Temp 97.2 F Temp Source Temporal Artery Scan Pulse Oximetry (%) 96 Oxygen Delivery Method Room Air Intake Visit Reasons: f/u diabetes Intake Note: Alan presents in the office today for a follow up to diabetes. Equip Tech Required: No Allergies No Known Allergies Allergy (Verified 09/25/25 15:17) Medication List - Last Reconciled 09/25/25 by Phoenix Lal MD alprazolam 2 mg (2 x 1 mg) PO DAILY 30 days buprenorphine-naloxone 8-2 mg (Suboxone) 1 film sublingual BID 30 days ezetimibe 10 mg PO DAILY losartan 25 mg PO DAILY metformin 500 mg PO QPM 30 days metoprolol succinate ER 100 mg PO DAILY omega-3 acid ethyl esters 2 caps PO BID peg 3350-electrolytes 236-22.74-6.74 -5.86 gram (Golytely) 240 mL PO Q10M Tobacco use date assessed: 09/25/25 Dental Screening Dental Screen Date: 09/25/25 Did you have a dental visit in the last 12 months?: Yes Did you have a dental problem in the last 6 months where you did not have access to dental care?: No Was dental information given to patient?: Patient has dentist HPI f/u diabetes HPI Details 45 y/o male presents to f/u labs, diabet es. Labs drawn 09/23/25. Reviewed labs with pt. Triglycerides 451. TC 282. LDL TNP. HDL 41. Blood pressure today 122/68, 69p. He is on metoprolol 100mg, losartan 25mg daily. A1c controlled at 5.8%. [facility] Medical History Family history of bicuspid aortic valve Hypertension Surgical History History of surgery on arm Family History Mother HTN (hypertension) Father Liver cancer Stroke Prostate cancer Sister No problems noted. 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 Current occupational exposures/hazards: No Cognitive needs: No Hearing needs: No Vision needs: No Questionnaire Thrive Questionnaire Date Thrive assessed: 12/04/24 I am a: Patient What is your living situation today?: I have a steady place to live Within the past 12 months, did the food you bought not last and you didn't have the money to get more?: Never true Within the past 12 months, did you worry whether your food would run out before you got money to buy more?: Never true Do you have trouble paying for medicines?: No Do you have trouble getting transportation to medical appointments?: No Do you have trouble paying your heating and electricity bill?: No Do you have trouble taking care of your child, family member or friend?: No Do you have trouble with day-to-day activities such as bathing, preparing meals, shopping, managing finances, etc.?: No Are you currently unemployed and looking for a job?: No Are you interested in more education?: No Please select the resources that you would like help with: None Currently or been in a relationship where the following occur: No concerns reported THRIVE Score: 0 KELLY-7 AMB Questionnaire KELLY-7 Date KELLY - 7 assessed: 12/20/23 Source: Developed by Drs. Parth Gomez, Juliet Nguyen, Juan Gonzalez and colleagues, with an educational aj from [employer]. Review of Systems Const Denies chills, Denies fatigue, Denies fever(s), Denies headache(s) and Denies weakness ENT Denies dizziness and Denies headache(s) Card Denies dyspnea Resp Denies cough, Denies dyspnea, Denies wheezing and Denies other (shortness of breath) Musc Denies numbness and Denies tingling Neuro Denies dizziness, Denies headache(s), Denies numbness, Denies tingling and Denies weakness Psych Reports anxiety and Denies depression Endo Denies fatigue Aller/Immun Denies wheezing Physical exam (Primary Care) Vital Signs: Last Vital Signs Temp 97.2 F 09/25/25 15:20 Pulse 69 09/25/25 15:20 Resp 16 09/25/25 15:20 BP 122/68 09/25/25 15:20 Pulse Ox 96 09/25/25 15:20 Oxygen Delivery Method Room Air 09/25/25 15:20 BMI result Body Mass Index 31.5 Tobacco/Smoking Status: Tobacco use Status Tobacco use date assessed 09/25/25 09/25/25 15:22 Patient Tobacco Use Status Former Tobacco user 09/25/25 15:20 e-Cigarette/Vaping Use Currently Using 09/25/25 15:20 Thrive Assessment: Date of Thrive Assessment Date Thrive assessed 12/04/24 09/25/25 15:16 Currently or been in a relationship where the following occur: No concerns reported Const General: well developed; No acute distress Nutritional Appearance: well nourished Orientation/consciousness: patient oriented x3 HENMT Head: Yes normocephalic and Yes atraumatic Eyes General: appearance normal, both eyes and all related structures Pupils: Equal, round and reactive pupils present EOM: EOMs intact bilaterally Resp Effort & Inspection: normal respiratory effort Auscultation: clear to auscultation bilaterally Cardio Rate: regular rate Rhythm: regular rhythm Heart sounds: S1 normal heart sound present, S2 normal heart sound present, no gallops, no murmurs and no rubs Neuro General: patient oriented x3 and gait normal Cranial nerves: Yes Equal, round and reactive pupils present Psych Affect: normal affect Coding Level of Care Code Est Pt Level 4 (71959) Diagnoses Diabetes E11.9 Essential hypertension I10 Mixed hyperlipidemia E78.2 Anxiety F41.9 Assessment & Plan Assessment & Plan (1) Diabetes: Code(s): E11.9 - Type 2 diabetes mellitus without complications Category: Medical Plan: A1c controlled at 5.8%. Goal is less than 7.0% and ideally < 6.5% Continue current medication (2) Essential hypertension: Code(s): I10 - Essential (primary) hypertension Category: Medical Plan: Blood pressure is controlled. Goal is less than 130/80 Continue current medications (3) Mixed hyperlipidemia: Code(s): E78.2 - Mixed hyperlipidemia Category: Medical Plan: Triglycerides are too high Patient had been on fenofibrate in the past and thinks this caused muscle discomfort. On discussion, he notes that the muscle discomfort preceded fenofibrate. He will try this medication again. Discontinue if muscle discomfort recurs Continue Zetia Will recheck lipids prior to next visit (4) Anxiety: Code(s): F41.9 - Anxiety disorder, unspecified Category: Medical Plan: Taking alprazolam as prescibed. Stable Continue current medication Orders: Orders Comprehensive [place]. Panel Fast Today R74.8 - Abnormal levels of other serum enzymes, Z00.00 - Encounter for general adult medical examination without abnormal findings Lipid Panel Today E78.2 - Mixed hyperlipidemia, Z00.00 - Encounter for general adult medical examination without abnormal findings Microalbumin, Random (w Creat) Today I10 - Essential (primary) hypertension Hemoglobin A1c Today E11.9 - Type 2 diabetes mellitus without complications, R73.01 - Impaired fasting glucose Medications: New fenofibrate 54 mg PO .QOD 45 tabs 3RF 90 days Refilled alprazolam MassPat Verified 2 mg (2 x 1 mg) PO DAILY 60 tabs 0RF 30 days E11.9 - Type 2 diabetes mellitus without complications
[2025-09-25 15:20] VITALS: BP 122/68; PULSE 69; RESP 16; TEMP 36.2; O2SAT 96; BMI 31.5
--- OUTSIDE RECORDS SUMMARY | 2025-09-25 20:08 | XMS_ITS | Patient Health Record ---
Author Organization [facility] Billing Info Address [address] [place] [address] Phone [phone] Support Name Relationship Address Phone Alan Pickett Self - patient is the insured [phone] [place] [address] [phone] Reason For Referral No Information Social History Sex Observation Social History Observation Description Sex Observation Male Plan Of Treatment No Information Insurance Providers Payer Name Payer Address Payer Phone Subscriber Number Group Number Insured Name Patient Relationship to Insured Coverage Start Date Coverage End Date [place] [address] [place], [place] [id number] [phone] [id number] Alan Pickett Self - patient is the insured 4 0
== END 2025-09-25 15:39 | disposition home or self-care (01) ==
LOC: HO.HMCFM 15:08
PROVIDERS: PCP Family Medicine; Visit Provider Family Medicine
DX: E11.9 Type 2 diabetes mellitus without complications (principal); I10 Essential (primary) hypertension; E78.2 Mixed hyperlipidemia; F41.9 Anxiety disorder, unspecified